=== PATIENT | female | born 1950 | race Caucasian/White ===

== ENCOUNTER 2017-11-04 09:41 | Inpatient (IN) | payer MEDICARE, BC ==
--- NOTE | 2017-11-04 09:56 | EDM.PDOC ---
ED HPI GENERAL MEDICAL PROBLEM - General Chief Complaint: Headache Stated Complaint: [facility] Time Seen by Provider: 11/04/17 09:53 Source of Information: Reports: Patient, EMS History Limitations: Reports: No Limitations - History of Present Illness INITIAL COMMENTS - FREE TEXT/NARRATIVE: 67-year-old female presents to the ED per ambulance from [place], [place]. She presented as a stroke alert. Apparently yesterday morning somewhere between 30/ she developed sudden troubles expressing herself. She been complaining of a headache most of the morning. Her was able to provide some history about 20 minutes after the patient arrived in the ED. Initially the patient seemed to be extremely hard of hearing or having difficulty understanding speech. Her speech initially sounded fairly close to normal but over time came out garbled and obvious expressive aphasia was evident. There was no other signs of a neurological deficit. Cranial nerves II-12 are intact. Tongue is mildly dry. The sinus. Blood pressure was stable. She has no previous history of CVA. Her informed us that the patient has not been taking any of her prescribed medications for over a year which includes her thyroid replacement hormone. She has a history of major depression and he has not been able to get her to go to the doctor. She does complain of only a headache today. Denies any nausea or vomiting. Is unclear when she ate or drank last. By history she does not have an alcohol or drug problem. Onset: Sudden Onset Date: 11/03/17 Onset Time: 11:45 Duration: Hour(s): ( states that he witnessed a change in her speech pattern suddenly about 1145 hrs. yesterday morning.) Location: Reports: Other (Dysarthric garbled speech or expressive aphasia.) Severity: Moderate (Apparently speech was very hard to understand initially.) Improves with: Reports: Other (Speech is somewhat better today.) Worsens with: Reports: None Context: Denies: Activity, Exercise, Lifting, Sick Contact, Trauma Associated Symptoms: Reports: Headaches, Malaise, Weakness. Denies: No Other Symptoms, Confusion, Chest Pain, Cough, cough w sputum, Diaphoresis, Fever/ Chills, Loss of Appetite, Nausea/Vomiting, Rash, Seizure, Shortness of Breath, Syncope Treatments MOTION PICTURE COMMENTATOR: Reports: Other (see below) (None.) Headache Pain Score (Numeric/FACES): 7 - Related Data Allergies Allergy/AdvReac Type Severity Reaction Status Date / Time Sulfa (Sulfonamide Allergy Severe Hives Verified 11/04/17 10:10 Antibiotics) Past Medical History Respiratory History: Reports: Asthma, COPD Psychiatric History: Reports: Depression, Other (See Below) (Chronic insomnia) Endocrine/Metabolic History: Reports: Hypothyroidism (Apparently has been off her medication for over a year.) Social & Family History - Tobacco Use Smoking Status *Q: Current Some Day Smoker Years of Tobacco use: 20 Used Tobacco, but Quit: No Second Hand Smoke Exposure: No - Alcohol Use Days Per Week of Alcohol Use: 0 - Recreational Drug Use Recreational Drug Use: No ED ROS GENERAL - Review of Systems Review Of Systems: See Below Constitutional: Reports: Malaise, Weakness, Fatigue, Decreased Appetite, Weight Loss. Denies: Fever, Chills HEENT: Reports: No Symptoms Respiratory: Reports: Shortness of Breath, Cough. Denies: Wheezing, Pleuritic Chest Pain (Only on exertion), Sputum, Hemoptysis (Smoker's cough) Cardiovascular: Reports: Dyspnea on Exertion (Chronically). Denies: Chest Pain , Blood Pressure Problem, Claudication, Edema, Lightheadedness, Orthopnea Endocrine: Reports: Fatigue GI/Abdominal: Reports: No Symptoms : Reports: No Symptoms Musculoskeletal: Reports: Back Pain (Chronic is to be on medicine for this but does not take pain medicine anymore.) Skin: Reports: Dryness Neurological: Reports: Confusion, Trouble Speaking (Difficulty speaking developed yesterday by 1145 hrs. in the morning with dysarthria and expressive aphasia.), Change in Speech. Denies: Dizziness, Headache, Numbness, Paresthesia , Pre-Existing Deficit, Seizure, Syncope, Tingling, Tremors, Difficulty Walking , Weakness Psychiatric: Reports: Depression Hematologic/Lymphatic: Reports: No Symptoms Immunologic: Reports: No Symptoms - Physical Exam Exam: See Below Exam Limited By: Physical Impairment (She seemed to be extremely hard of hearing and therefore examination was very limited in terms of getting a response even with a very loud voice.) General Appearance: Alert, WD/WN, No Apparent Distress, Other (Her only complaint was that she has a headache.) Eye Exam: Bilateral Eye: Normal Inspection, PERRL Ears: Normal TMs, Other (Mild cerumen in both ear canals) Throat/Mouth: Other Head Exam: Atraumatic, Normocephalic (Tongue is mildly dry and coated). No: Scalp Lacerations, Scalp Swelling, Scalp Ecchymosis, Scalp Tenderness, Facial Abrasions, Facial Lacerations Neck: Normal Inspection, Supple, Non-Tender, Full Range of Motion. No: Carotid Bruit, Lymphadenopathy (L), Lymphadenopathy (R) Respiratory/Chest: Decreased Breath Sounds. No: Respiratory Distress, Rhonchi ( Breath sounds are slightly diminished to the lower 20% of posterior lung prakash. ), Wheezing Cardiovascular: Normal Peripheral Pulses, Regular Rate, Rhythm, No Edema, No Gallop, No Murmur, No Rub GI/Abdominal: Normal Bowel Sounds, Soft, Non-Tender, No Organomegaly, Other ( Mildly palpable right hemicolon.) Neuro Exam (Abbreviated): Alert, Oriented, CN II-XII Intact, Normal Cognition, Normal Gait, Normal Reflexes, Slow to Respond, Other (Expressive aphasia.) DTR: 1+: Bicep (R), Bicep (L), 2+: Patella (R), Patella (L) Extremities: Normal Inspection, Normal Range of Motion, Non-Tender, No Pedal Edema Psychiatric: Flat Affect Skin Exam: Warm, Dry, Intact, Normal Color, No Rash Course - Vital Signs Last Recorded V/S: Last Vital Signs Temp 37.1 C 11/04/17 09:52 Pulse 85 11/04/17 09:52 Resp 16 11/04/17 09:52 BP 127/83 11/04/17 09:52 Pulse Ox 98 11/04/17 09:52 - Orders/Labs/Meds Orders: Active Orders 24 hr Category Date Time Status EKG Documentation Completion [RC] STAT Care 11/04/17 10:38 Active Brain wo Cont [MR] Stat Exams 11/04/17 10:12 Ordered Chest 1V Frontal [CR] Stat Exams 11/04/17 10:38 Taken Dextrose 5%-0.9% NaCl [Dextrose 5%-Normal Saline] 1,000 Med 11/04/17 10:15 Active ml IV ASDIRECTED Medication Orders Dextrose/Sodium Chloride (Dextrose 5%-Normal Saline) 1,000 mls @ 125 mls/hr IV ASDIRECTED DORINDA Last Admin: 11/04/17 10:43 Dose: 125 mls/hr Labs: Laboratory Tests 11/04/17 11/04/17 11/04/17 Range/Units 10:25 10:25 10:25 WBC 9.85 (3.98-10.04) K/mm3 RBC 4.57 (3.98-5.22) M/mm3 Hgb 14.5 (11.2-15.7) gm/L Hct 43.3 (34.1-44.9) % MCV 94.7 (79.4-94.8) fl MCH 31.7 (25.6-32.2) pg MCHC 33.5 (32.2-35.5) g/dl RDW Std Deviation 48.9 H (36.4-46.3) fL Plt Count 248 (182-369) K/mm3 MPV 9.2 L (9.4-12.3) fl Neutrophils % (Manual) 73 H (40-60) % Band Neutrophils % 1 (0-10) % Lymphocytes % (Manual) 24 (20-40) % Atypical Lymphs % 0 % Monocytes % (Manual) 1 L (2-10) % Eosinophils % (Manual) 1 (0.7-5.8) % Basophils % (Manual) 0 L (0.1-1.2) Platelet Estimate Adequate RBC Morph Comment Normal ESR 16 (0-20) mm/hr PT (8.0-13.0) SECONDS INR APTT (22-36) SECONDS Sodium 141 (136-145) mEq/L Potassium 4.1 (3.5-5.1) mEq/L Chloride 106 (98-107) mEq/L Carbon Dioxide 22 (21-32) mEq/L Anion Gap 17.1 H (5-15) BUN 21 H (7-18) mg/dL Creatinine 0.7 (0.55-1.02) mg/dL Est Cr Clr Drug Dosing TNP Estimated GFR (MDRD) > 60 (>60) mL/min BUN/Creatinine Ratio 30.0 H (14-18) Glucose 105 (80-115) mg/dL Calcium 9.5 (8.5-10.1) mg/dL Total Bilirubin 0.3 (0.2-1.0) mg/dL AST 24 (15-37) U/L ALT 42 (14-59) U/L Alkaline Phosphatase 75 (46-116) U/L Creatine Kinase (26-192) U/L C-Reactive Protein < 0.2 (<1.0) mg/dL Total Protein 7.2 (6.4-8.2) g/dl Albumin 3.9 (3.4-5.0) g/dl Globulin 3.3 gm/dL Albumin/Globulin Ratio 1.2 (1-2) TSH 3rd Generation (0.358-3.74) uIU/mL 11/04/17 11/04/17 Range/Units 10:25 10:25 WBC (3.98-10.04) K/mm3 RBC (3.98-5.22) M/mm3 Hgb (11.2-15.7) gm/L Hct (34.1-44.9) % MCV (79.4-94.8) fl MCH (25.6-32.2) pg MCHC (32.2-35.5) g/dl RDW Std Deviation (36.4-46.3) fL Plt Count (182-369) K/mm3 MPV (9.4-12.3) fl Neutrophils % (Manual) (40-60) % Band Neutrophils % (0-10) % Lymphocytes % (Manual) (20-40) % Atypical Lymphs % % Monocytes % (Manual) (2-10) % Eosinophils % (Manual) (0.7-5.8) % Basophils % (Manual) (0.1-1.2) Platelet Estimate RBC Morph Comment ESR (0-20) mm/hr PT 10.6 (8.0-13.0) SECONDS INR 0.97 APTT 28 (22-36) SECONDS Sodium (136-145) mEq/L Potassium (3.5-5.1) mEq/L Chloride (98-107) mEq/L Carbon Dioxide (21-32) mEq/L Anion Gap (5-15) BUN (7-18) mg/dL Creatinine (0.55-1.02) mg/dL Est Cr Clr Drug Dosing Estimated GFR (MDRD) (>60) mL/min BUN/Creatinine Ratio (14-18) Glucose (80-115) mg/dL Calcium (8.5-10.1) mg/dL Total Bilirubin (0.2-1.0) mg/dL AST (15-37) U/L ALT (14-59) U/L Alkaline Phosphatase (46-116) U/L Creatine Kinase 50 (26-192) U/L C-Reactive Protein (<1.0) mg/dL Total Protein (6.4-8.2) g/dl Albumin (3.4-5.0) g/dl Globulin gm/dL Albumin/Globulin Ratio (1-2) TSH 3rd Generation 10.843 H (0.358-3.74) uIU/mL Meds: Medications Generic Name Dose Route Start Last Admin Trade Name Freq PRN Reason Stop Dose Admin Dextrose/Sodium Chloride 1,000 mls @ 125 mls/hr 11/04/17 10:15 11/04/17 10:43 Dextrose 5%-Normal Saline IV 125 mls/hr ASDIRECTED DORINDA Administration Discontinued Medications Generic Name Dose Route Start Last Admin Trade Name Freq PRN Reason Stop Dose Admin Aspirin 324 mg 11/04/17 10:14 11/04/17 10:47 Aspirin PO 11/04/17 10:15 324 mg ONETIME ONE Administration Hydromorphone HCl 0.5 mg 11/04/17 10:15 11/04/17 10:45 Dilaudid IVPUSH 11/04/17 10:16 0.5 mg ONETIME ONE Administration Ondansetron HCl 4 mg 11/04/17 10:16 11/04/17 10:43 Zofran IVPUSH 11/04/17 10:17 4 mg ONETIME ONE Administration - Radiology Interpretation Free Text/Narrative:: 67-year-old female presents to the ED per ambulance from [facility]. Her who came along later indicated that he identified a speech change about 1145 hrs. yesterday morning. Her speech became slurred and hard to understand. She is then seem to have trouble getting her point across i.e. expressive aphasia. Also initially felt that she is perhaps diaphoretic and febrile. She was holding her head in complaining of a headache. Is unclear whether she ate or drank much yesterday. She has not vomited. He was unable to persuade her to go to the doctor yesterday as she's been avoiding medical care for well over a year. Apparently she has not taken any of her previously prescribed medications for over a year which includes thyroid replacement therapy. There is no history of previous CVA. She could walk and without any active ataxia. She had difficulty understanding any concept of finger to nose or heel to fernandes. She did exhibit an expressive aphasia and unable to name objects. CT of the head was done and did not reveal any signs of intracranial bleeding or mass effect. However there is an area in the left parietal and occipital cortex of diminished blood flow. This suggests a recent infarct. There is also an old infarct noted within the anterior left frontal region. There are diminished density noted within portions of the periventricular white matter compatible with small vessel ischemic demyelination changes in the basal ganglia. Note there is atherosclerotic desiccation within the carotid siphon and within the vertebral vessels. Plan will be due try and get an MRI done later today to see the extent of her infarct. Given 324 mg aspirin now. Labs ordered to include a TSH. ECG and chest x-ray will be done due to chronic cigarette smoking. - Re-Assessments/Exams Free Text/Narrative Re-Assessment/Exam: 11/04/17 11:37 White count is 9.85 with 73% neutrophils 1% bands. Hemoglobin is 14.5 with hematocrit of 43.3. Blood count is 240,000. Sedimentation rate is 16. PT is 10.6 with an INR of 0.97. PTT is 28. Sodium is 141 potassium is 4.1. Chloride is 106 bicarbonate is 22. Anion gap is mildly elevated at 17.1. BUNs 21. Creatinine is 0.7. Glucose is 105. Chemistry is otherwise normal other than a TSH of 10.843 compatible with untreated hypothyroidism( noncompliance with medication.). Symptoms remain unchanged. Patient will tentatively be booked for MRI at noon today. Tentatively will be admitted to the hospital for further tests such as echocardiogram and ultrasound of carotids. Of note she continues to smoke a pack of cigarettes per day and may need treatment for nicotine addiction. BP at the time of discharge is 122/64 with a heart rate of 69 and sinus. Spoke with television cameraman hospitalist Dr. Bowling.. The patient will be admitted to the med surgery floor on telemetry. Departure - Departure Time of Disposition: 11:42 Disposition: Admitted As Inpatient 66 Condition: Fair Clinical Impression: Cerebrovascular accident (CVA) Qualifiers: CVA mechanism: unspecified Qualified Code(s): I63.9 - Cerebral infarction, unspecified - Discharge Information Forms: ED Department Discharge - My Orders Last 24 Hours: My Active Orders 11/04/17 10:12 Brain wo Cont [MR] Stat 11/04/17 10:15 Dextrose 5%-0.9% NaCl [Dextrose 5%-Normal Saline] 1,000 ml IV ASDIRECTED 11/04/17 10:38 EKG Documentation Completion [RC] STAT Chest 1V Frontal [CR] Stat - Assessment/Plan Last 24 Hours: My Active Orders 11/04/17 10:12 Brain wo Cont [MR] Stat 11/04/17 10:15 Dextrose 5%-0.9% NaCl [Dextrose 5%-Normal Saline] 1,000 ml IV ASDIRECTED 11/04/17 10:38 EKG Documentation Completion [RC] STAT Chest 1V Frontal [CR] Stat
[2017-11-04] MEDS ORDERED: Aspirin 81 MG Tab.Chew PO ONE (10:14)
[2017-11-04] MEDS ORDERED: HYDROmorphone 0.5 MG/0.5 ML Syringe IVPUSH ONE (10:15)
[2017-11-04] MEDS ORDERED: Dextrose 5%-0.9% NaCl 1,000 ML IV SCH (10:15)
[2017-11-04] MEDS ORDERED: Ondansetron 4 MG/2 ML SDV IVPUSH ONE (10:16)
--- NOTE | 2017-11-04 10:22 | CT ---
Head CT Technique: Multiple axial sections through the brain were obtained. Intravenous contrast was not utilized. Comparison: No previous intracranial imaging is available. Findings: Old infarct is noted within the posterior right frontal region. Old infarct also noted within the anterior left frontal region. Diminished density noted within the left posterior parietal region on the left side compatible with fairly recent infarct. Diminished density noted within portions of the periventricular white matter compatible with small vessel ischemic demyelination change. No evidence of intracranial hemorrhage. No midline shift or mass effect is appreciated. Atherosclerotic calcification is seen within the carotid siphon and within the vertebral vessels. Bone window settings were reviewed which show mild areas of mucosal thickening within the ethmoid and right side of the sphenoid sinus which likely represents mild chronic sinusitis. No acute calvarial abnormality is seen. Impression: 1. Several old infarcts as described above. 2. Fairly recent infarct is noted within the posterior left parietal region. 3. Other senescent change as described above. No intracranial hemorrhage is seen. Diagnostic code #5
[2017-11-04] MEDS ORDERED: Midazolam 1 MG/ML 2 ML SDV IVPUSH ONE (11:48)
--- NOTE | 2017-11-04 12:24 | CR ---
Chest: Frontal view of the chest is obtained utilizing portable technique. Comparison: Previous chest x-ray of 09/17/15. Heart size is normal. Tortuous thoracic aorta is seen. Lungs are clear. Right shoulder prosthesis is seen. Impression: 1. Nothing acute is seen on portable chest x-ray. Diagnostic code #2
[2017-11-04] MEDS ORDERED: Polyethylene Glycol 3350 Powder 17 GM Packet PO PRN (12:32)
[2017-11-04] MEDS ORDERED: Bisacodyl 5 MG Tab PO PRN (12:32)
[2017-11-04] MEDS ORDERED: Acetaminophen 325 MG Tab PO PRN (12:32)
[2017-11-04] MEDS ORDERED: Promethazine 12.5 MG in Sodium Chloride 0.9% 50 ML IV PRN (12:32)
[2017-11-04] MEDS ORDERED: Docusate Sodium 100 MG Cap PO PRN (12:32)
[2017-11-04] MEDS ORDERED: LORazepam 2 MG/ML SDV IV PRN (12:32)
[2017-11-04] MEDS ORDERED: HYDROmorphone 0.5 MG/0.5 ML Syringe IVPUSH PRN (12:32)
[2017-11-04] MEDS ORDERED: Acetaminophen/HYDROcodone 325-5 MG Tab PO PRN (12:32)
[2017-11-04] MEDS ORDERED: Albuterol/Ipratropium 3.0-0.5 MG/3 ML Neb Soln NEB PRN (12:32)
[2017-11-04] MEDS ORDERED: Ondansetron 4 MG/2 ML SDV IV PRN (12:32)
[2017-11-04] MEDS ORDERED: Temazepam 7.5 MG Cap PO PRN (12:32)
[2017-11-04] MEDS ORDERED: Triamcinolone Acetonide 0.1% Crm 15 GM Tube TOP PRN (12:38)
[2017-11-04] MEDS ORDERED: Metoprolol Tartrate 5 MG/5 ML SDV IVPUSH PRN (12:38)
[2017-11-04] MEDS ORDERED: hydrALAZINE 20 MG/ML SDV IVPUSH PRN (12:38)
--- NOTE | 2017-11-04 13:36 | MR ---
MRI brain Technique: T1 sagittal; T2, T2 FLAIR, T1 and T2 gradient echo axial images were obtained; diffusion axial images were also obtained. T2 gradient echo and T1 FLAIR coronal images were also obtained. Findings: Acute diffusion abnormality is identified within the left temporoparietal region. This shows increased signal on the FLAIR sequence and is compatible with fairly acute but irreversible infarct. There is an additional small area of abnormal diffusion within the medial left occipital lobe also showing increased signal on the FLAIR sequence compatible with fairly acute but irreversible infarct. Old infarct is seen within the left frontal regions on both sides. Scattered areas of increased signal within the periventricular and subcortical white matter are compatible with small vessel ischemic demyelination change. On the gradient echo sequences there are multiple small low-density areas within the infarct which are felt compatible with microscopic areas of hemorrhage. Ventricles along with basal cisterns and sulci over the convexities are mildly prominent. Impression: 1. Findings compatible with fairly acute but irreversible infarcts within the left temporoparietal region and within the medial left occipital lobe. Gradient echo sequence shows small low signal findings within the temporal parietal infarct compatible with microscopic hemorrhages. 2. Small vessel ischemic demyelination change noted. 3. Old infarcts within both frontal lobes are seen. Diagnostic code #3
--- NOTE | 2017-11-04 14:03 | US ---
Carotid ultrasound: Duplex and color flow imaging was obtained of the carotid arteries. Comparison: No previous carotid imaging. Findings: Moderate amount of plaque identified within the carotid bulb and origin of the internal and external carotid arteries on both sides. Velocity measurements Right side: CCA has a peak systolic velocity of 0.68 m/s. ICA has a peak systolic velocity of 0.61 m/s and peak end-diastolic velocity of 0.22 m/s. ECA has a peak systolic velocity of 0.42 m/s. Vertebral artery has a peak systolic velocity of 0.42 m/s. ICA/CCA ratio 0.9. Left side: CCA has a peak systolic velocity of 0.80 m/s. ICA has a peak systolic velocity of 0.67 m/s and peak end-diastolic velocity of 0.26 m/s. ECA has a peak systolic velocity of 0.42 m/s. Vertebral artery has a peak systolic velocity of 0.41 m/s. ICA/CCA ratio 0.8. Impression: 1. Moderate amount of plaque as noted above. 2. Velocity measurements within both internal carotid arteries correspond to stenosis in the range of 1-49%. Diagnostic code #3
[2017-11-04] MEDS: Sucralfate 1 GM Tab PO SCH ×3 (14:19→21:05)
[2017-11-04] MEDS: Acetaminophen/HYDROcodone 325-5 MG Tab PO SCH ×2 (14:19→21:09)
[2017-11-04] MEDS: Nicotine 21 MG/24 Hr Patch TRDERM SCH (16:05)
[2017-11-04] MEDS: Sodium Chloride 0.9% 1,000 ML IV SCH (18:50)
--- NOTE | 2017-11-04 20:03 | PCM.HP ---
H&P History of Present Illness - General Date of Service: 11/04/17 Admit Problem/Dx: Admission Diagnosis/Problem Admission Diagnosis/Problem CVA, Cerebrovascular accident Source of Information: Patient, Old Records, Provider, RN, Significant Other History Limitations: Reports: Physical Impairment (expressive aphasia and very hard of hearing ) - History of Present Illness Initial Comments - Free Text/Narative: Chelsea Summers is a 67 yo female reason [facility] ED today from [place] via ambulance. Stroke alert was called in the ED. It is reported that yesterday morning between 11:30 and 1145 she developed sudden troubles speaking and a headache. Initially she seemed very hard of hearing or having difficulty understanding speech. Her speech was initially nearly normal, however over time he became more garbled and obvious expressive aphasia was noted. No signs of neurologic deficit. Cranial nerves II through XII were intact. Tongue was mildly dry. Blood pressure was stable. No previous history of CVA. Her did realize that she had not been taking any of her medications for over a year which included her thyroid replacement hormone. She is a history of major depression and her has not been able to get her to go the doctor. She has complained of only a headache in the ED. Denies nausea or vomiting. Unsure when she last ate or had anything to drink. She reportedly does not have a drug or alcohol problem. Her speech has improved somewhat today. In the ER temp was 37.1 Celsius. Pulse 85. Respirations 16. BP 127/83 pulse ox 98%. Labs are obtained: The CBC is normal at 9.5. Hemoglobin normal at 14.5. Hematocrit 43.3. She is normocytic. Platelet count is good at 240,000. Neutrophils are elevated at 73%. There is 1% band neutrophils noted. ESR 16. PT is 10.6. INR 0.97. APTT 28. Sodium was good at 141. Potassium 4.1. Chloride 106. Carbon dioxide 22. Anion gap was slightly high at 17.1. BUN is elevated at 21. Creatinine is 0.7. EGFR is greater than 60. Glucose is 105. Calcium 9.5. Total bilirubin 0.3. Liver enzymes looked good with AST at 24, ALT at 42, alkaline phosphatase at 75. Creatinine kinase is 50. CRP is less than 0.2. Total protein is 7.2. Albumin is 3.9. TSH is very high at 10.843. She started on D5 normal saline, given aspirin 324 mg, 4 mg of Zofran, and 0.5 mg of Dilaudid for pain. He is not having any noted weakness or difficulty walking, however she does have difficulty speaking and appears to have cognition difficulties. CT scan of the head was obtained and did not reveal any signs of intracranial bleeding or mass effect, however, there is an area in the left parietal occipital cortex of diminished blood flow suggesting a recent infarct. There is also old infarct noted within the anterior left frontal region. There are diminished density noted within portions of periventricular white matter compatible with small vessel ischemic demyelination changes in the basal ganglia. An MRI will be attempted on the floor. She carries a history of asthma, COPD, depression, chronic insomnia, hypothyroidism. She is a current daily smoker. She is subsequently admitted to the medical floor. She is a full code. She has not seen the doctor in some time, however her states her PCP is Lisette Reid in [place]. Symptom Onset Date: 11/03/17 Symptom Onset Time: 11:45 Location: Reports: Other (garbled speech and expressive aphasia) Severity: Moderate Worsens with: Reports: None Associated Symptoms: Reports: Headaches, Malaise, Weakness Headache Pain Score (Numeric/FACES): 0 - Related Data Allergies/Adverse Reactions: Allergies Allergy/AdvReac Type Severity Reaction Status Date / Time Sulfa (Sulfonamide Allergy Severe Hives Verified 11/04/17 10:10 Antibiotics) Home Medications: Home Meds Albuterol Sulfate [Proair Hfa] 1 - 2 puff INH Q4H PRN 11/04/17 [History] Aspirin 81 mg PO DAILY 11/04/17 [History] Calcium Carbonate [Calcium] 500 mg PO DAILY 11/04/17 [History] Citalopram Hydrobromide [Celexa] 60 mg PO DAILY 11/04/17 [History] Ergocalciferol (Vitamin D2) [Vitamin D2] 2,000 unit PO DAILY 11/04/17 [History] Fluticasone Propionate [Flovent HFA 110 MCG] 1 puff INH BID 11/04/17 [History] Hydrocodone/Acetaminophen [Hydrocodon-Acetaminoph 7.5-325] 1 tab PO TID [History] LORazepam 1 mg PO BID 11/04/17 [History] Lactobacillus Rhamnosus GG [Culturelle] 1 cap PO DAILY 11/04/17 [History] Leflunomide 20 mg PO DAILY 11/04/17 [History] Levothyroxine Sodium [Synthroid] 125 mcg PO DAILY 11/04/17 [History] Loratadine/Pseudoephedrine [Loratadine-D 12HR] 1 tab PO BID 11/04/17 [History] Nabumetone 1,000 mg PO DAILY 11/04/17 [History] Webster-3/DHA/Epa/Fish Oil [Webster-3 Fish Oil 1,200 MG Sfgl] 1,200 mg PO DAILY [History] Omeprazole 40 mg PO BID 11/04/17 [History] Potassium Gluconate 595 mg PO DAILY 11/04/17 [History] Sucralfate 1 gm PO QID 11/04/17 [History] Tiotropium [Spiriva HandiHaler] 18 mcg INH DAILY 11/04/17 [History] Triamcinolone Acetonide [Triamcinolone Acetonide 0.1% Crm] 1 appful TOP DAILY PRN 11/04/17 [History] Ubidecarenone [Co Q-10] 100 mg PO DAILY 11/04/17 [History] atorvaSTATin [Lipitor] 10 mg PO DAILY 11/04/17 [History] traZODone HCl [Trazodone HCl] 1 - 2 tab PO BEDTIME 11/04/17 [History] Past Medical History HEENT History: Reports: Allergic Rhinitis, Hard of Hearing, Impaired Vision, Sinusitis Other HEENT History: wears reading glasses Cardiovascular History: Reports: Aneurysm, High Cholesterol, Hypertension Respiratory History: Reports: Asthma, COPD Gastrointestinal History: Reports: Helicobacter Pylori, PUD [employer]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: Musculoskeletal History: Reports: Osteoarthritis, Osteoporosis Neurological History: Reports: CVA Psychiatric History: Reports: Depression, Other (See Below) Endocrine/Metabolic History: Reports: Hypothyroidism Hematologic History: Reports: Anemia - Infectious Disease History Infectious Disease History: Reports: Shingles - Past Surgical History HEENT Surgical History: Reports: Cataract Surgery, Naso-Sinus Surgery Respiratory Surgical History: Reports: None GI Surgical History: Reports: Bariatric Procedure, Cholecystectomy Female Surgical History: Reports: Breast Implant, Breast Reconstruction, Breast Reduction, Hysterectomy, Tubal Ligation Neurological Surgical History: Reports: None Musculoskeletal Surgical History: Reports: Shoulder Surgery Social & Family History - Family History Family Medical History: Noncontributory - Tobacco Use Smoking Status *Q: Light Tobacco Smoker Years of Tobacco use: 50 Packs/Tins Daily: 0.5 Used Tobacco, but Quit: No Tobacco Use Comment: smokes carton of cigarrettes in 6 weeks Second Hand Smoke Exposure: No - Caffeine Use Caffeine Use: Reports: None Caffeine Use Comment: 1 cup/day - Alcohol Use Days Per Week of Alcohol Use: 0 - Recreational Drug Use Recreational Drug Use: No H&P Review of Systems - Review of Systems: Review Of Systems: Unable To Obtain Free Text/Narrative: review of systems is difficult to obtain as patient appears to have some cognition deficits. Patient just seems to respond to most questions "I am fine. " She denies any chest pain or shortness of breath. No current headache, dizziness, or blurred vision, per her responses. Her reports that she has been depressed since a recent and doesn't leave the house very much. he reports she mostly goes between her bedroom, kitchen, and front porch. He was reportedly unaware she was not taking any of her medications as prescribed. Reports no previous strokelike symptoms. He denies any vomiting. He reports she normally gets around the house very good. Exam - Exam Exam: See Below - Vital Signs Vital Signs: Last Vital Signs Temp 98.1 F 11/04/17 19:24 Pulse 57 L 11/04/17 19:24 Resp 15 11/04/17 19:24 BP 97/62 11/04/17 19:24 Pulse Ox 97 11/04/17 19:24 Weight: 130 lb - Exam General: Alert, Cooperative. No: Mild Distress HEENT: PERRLA, Hearing Intact, Mucosa Moist & [place], Nares Patent, Normal Nasal Septum, Posterior Pharynx Clear, Conjunctiva Clear, EOMI, EACs Clear, TMs Clear Neck: Supple, Trachea Midline, Full Range of Motion. No: JVD, Thyromegaly Lungs: Decreased Breath Sounds (llower lung prakash), Rhonchi, Wheezing Cardiovascular: Regular Rate, Regular Rhythm GI/Abdominal Exam: Normal Bowel Sounds, Soft, Non-Tender, No Organomegaly, No Distention, No Abnormal Bruit, No Mass, Pelvis Stable (Female) Exam: Deferred Rectal (Female) Exam: Deferred Back Exam: Normal Inspection, Full Range of Motion Extremities: Normal Inspection, Normal Range of Motion, Non-Tender, No Pedal Edema, Normal Capillary Refill Peripheral Pulses: 2+: Radial (L), Radial (R), Posterior Tibial (L), Posterior Tibial (R), Dorsalis Pedis (L), Dorsalis Pedis (R) Neurological: Cranial Nerves Intact, Strength Equal Bilateral, Normal Gait, Sensation Intact. No: Normal Speech Neuro Extensive - Mental Status: Alert, Slow Response to Commands, Other ( difficult to examine due to expressive aphasia). No: Normal Mood/Affect, Normal Cognition, Memory Intact Neuro Extensive - Motor, Sensory, Reflexes: CN II-XII Intact, Expressive Aphasia. No: Abnormal Gait, Tongue Deviation (L), Tongue Deviation (R), Facial Palsy (R) Psychiatric: Alert, Depressed - Patient Data Result Diagrams: 11/04/17 10:25 11/04/17 10:25 *Q Meaningful Use (ADM) - VTE *Q VTE Criteria *Q: - Stroke *Q Stroke Criteria *Q: - AMI *Q AMI Criteria *Q: - Problem List (1) Cerebrovascular accident (CVA) SNOMED Code(s): 318528567 ICD Code: I63.9 - CEREBRAL INFARCTION, UNSPECIFIED Status: Acute Priority : High Current Visit: Yes Qualifiers: CVA mechanism: unspecified Qualified Code(s): I63.9 - Cerebral infarction, unspecified (2) Asthma SNOMED Code(s): 679643305 ICD Code: J45.909 - UNSPECIFIED ASTHMA, UNCOMPLICATED Status: Chronic Priority: Low Current Visit: No Qualifiers: Asthma severity: unspecified severity Asthma persistence: unspecified Asthma complication type: unspecified Qualified Code(s): J45.909 - Unspecified asthma, uncomplicated (3) COPD (chronic obstructive pulmonary disease) SNOMED Code(s): 23125952 ICD Code: J44.9 - CHRONIC OBSTRUCTIVE PULMONARY DISEASE, UNSPECIFIED Status : Chronic Priority: Low Current Visit: No Qualifiers: COPD type: unspecified COPD Qualified Code(s): J44.9 - Chronic obstructive pulmonary disease, unspecified (4) Depression SNOMED Code(s): 34596010 ICD Code: F32.9 - MAJOR DEPRESSIVE DISORDER, SINGLE EPISODE, UNSPECIFIED Status: Chronic Priority: Medium Current Visit: Yes Qualifiers: Depression Type: other depression Qualified Code(s): F32.89 - Other specified depressive episodes (5) Insomnia SNOMED Code(s): 281510023 ICD Code: G47.00 - INSOMNIA, UNSPECIFIED Status: Chronic Priority: Low Current Visit: No Qualifiers: Insomnia type: unspecified Qualified Code(s): G47.00 - Insomnia, unspecified (6) Hypothyroidism SNOMED Code(s): 69104495 ICD Code: E03.9 - HYPOTHYROIDISM, UNSPECIFIED Status: Chronic Priority: Medium Current Visit: Yes Qualifiers: Hypothyroidism type: unspecified Qualified Code(s): E03.9 - Hypothyroidism , unspecified (7) Medical non-compliance SNOMED Code(s): 452911327 ICD Code: Z91.19 - PATIENT'S NONCOMPLIANCE W OTH MEDICAL TREATMENT AND REGIMEN Status: Acute Priority: High Current Visit: Yes Problem List Initiated/Reviewed/Updated: Yes Orders Last 24hrs: Active Orders 24 hr Category Date Time Status Antiembolic Devices [RC] BID Care 11/04/17 12:34 Active Height and Weight [RC] 04 Care 11/04/17 12:32 Active Intake and Output [RC] 04,16 Care 11/04/17 12:33 Active VTE/DVT Education [RC] DAILY Care 11/04/17 12:32 Active Vital Signs [RC] Q4HR Care 11/04/17 12:32 Active OT Evaluation and Treatment [CONS] Routine Cons 11/04/17 12:36 Active PT Evaluation and Treatment [CONS] Routine Cons 11/04/17 12:36 Active BLASTING MINER Evaluation and Treatment [CONS] Routine Cons 11/04/17 12:36 Active Heart Healthy Diet [DIET] Diet 11/04/17 Lunch Active BASIC METABOLIC PANEL,BMP [CHEM] AM Lab 11/05/17 05:11 Ordered BASIC METABOLIC PANEL,BMP [CHEM] AM Lab 11/06/17 05:11 Ordered BASIC METABOLIC PANEL,BMP [CHEM] AM Lab 11/07/17 05:11 Ordered BASIC METABOLIC PANEL,BMP [CHEM] AM Lab 11/08/17 05:11 Ordered CBC WITH AUTO DIFF [HEME] AM Lab 11/05/17 05:11 Ordered LIPID PANEL [CHEM] AM Lab 11/05/17 05:11 Ordered MAGNESIUM [CHEM] AM Lab 11/05/17 05:11 Ordered MAGNESIUM [CHEM] AM Lab 11/06/17 05:11 Ordered MAGNESIUM [CHEM] AM Lab 11/07/17 05:11 Ordered MAGNESIUM [CHEM] AM Lab 11/08/17 05:11 Ordered Acetaminophen [Tylenol] Med 11/04/17 12:32 Active 650 mg PO Q4H PRN Acetaminophen/HYDROcodone [[place] 325-5 MG] Med 11/04/17 12:32 Active 1 tab PO Q4H PRN Acetaminophen/HYDROcodone [[place] 325-5 MG] Med 11/04/17 15:00 Active 1.5 tab PO TID Albuterol/Ipratropium [DuoNeb 3.0-0.5 MG/3 ML] Med 11/04/17 12:32 Active 3 ml NEB Q4H PRN Aspirin Med 11/05/17 09:00 Active 162 mg PO DAILY Bisacodyl [Dulcolax] Med 11/04/17 12:32 Active 5 mg PO DAILY PRN Calcium Carbonate Med 11/05/17 09:00 Active 600 mg PO DAILY Citalopram [Celexa] Med 11/05/17 09:00 Active 60 mg PO DAILY Docusate Sodium [Colace] Med 11/04/17 12:32 Active 100 mg PO BID PRN Docusate Sodium/Sennosides [Senna Plus] Med 11/04/17 12:32 Active 1 tab PO BID PRN Fish Oil/Webster-3 Fatty Acids [Fish Oil] Med 11/05/17 09:00 Active 1 gm PO DAILY HYDROmorphone [Dilaudid] Med 11/04/17 12:32 Active 0.25 mg IVPUSH Q2H PRN LORazepam [Ativan] Med 11/04/17 12:32 Active 0.25 mg IV Q6H PRN LORazepam [Ativan] Med 11/04/17 21:00 Active 1 mg PO BID Levothyroxine Med 11/05/17 09:00 Active 125 mcg PO DAILY Loratadine [Claritin] Med 11/04/17 21:00 Active 10 mg PO BID Magnesium Rep Pharmacy to Dose [Pharmacy to Dose - Med 11/04/17 12:45 Active Magnesium Replacement] 1 dose .XX ASDIRECTED Metoprolol Tartrate [Lopressor] Med 11/04/17 12:38 Active 5 mg IVPUSH Q4H PRN Mometasone Furoate 100mcg [Asmanex HFA 100mcg] Med 11/04/17 21:00 Active 0 gm INH BID Nicotine [Habitrol] Med 11/04/17 15:30 Active 21 mg TRDERM DAILY Ondansetron [Zofran] Med 11/04/17 12:32 Active 4 mg IV Q4H PRN Pantoprazole [ProTONIX] Med 11/04/17 21:00 Active 40 mg PO BID Patient's Own Medication [Ptom] Med 11/05/17 09:00 Active 0 each PO DAILY Patient's Own Medication [Ptom] Med 11/05/17 09:00 Active 0 each PO DAILY Patient's Own Medication [Ptom] Med 11/05/17 09:00 Active 0 each PO DAILY Patient's Own Medication [Ptom] Med 11/05/17 09:00 Active 0 each PO DAILY Polyethylene Glycol 3350 [MiraLAX] Med 11/04/17 12:32 Active 17 gm PO DAILY PRN Potassium Rep Pharmacy to Dose [Pharmacy to Dose - Med 11/04/17 12:45 Active Potassium Replacement] 1 dose .XX ASDIRECTED Promethazine [Phenergan] 12.5 mg Med 11/04/17 12:32 Active Sodium Chloride 0.9% [Normal Saline] 50 ml IV Q6H Pseudoephedrine [Sudogest] Med 11/04/17 21:00 Active 120 mg PO BID Remove Patch Med 11/05/17 09:00 Active 0 ea TRDERM DAILY Saccharomyces Boulardii [Florastor] Med 11/05/17 09:00 Active 250 mg PO DAILY Simvastatin [Zocor] Med 11/05/17 09:00 Active 10 mg PO DAILY Sodium Chloride 0.9% [Normal Saline] 1,000 ml Med 11/04/17 12:45 Active IV ASDIRECTED Sucralfate [Carafate] Med 11/04/17 13:00 Active 1 gm PO QID Sulindac [Clinoril] Med 11/05/17 09:00 Active 150 mg PO BID Temazepam [Restoril] Med 11/04/17 12:32 Active 7.5 mg PO BEDTIME PRN Tiotropium [Spiriva HandiHaler] Med 11/05/17 09:00 Active 18 mcg INH DAILY Triamcinolone Acetonide [Triamcinolone Acetonide 0.1% Med 11/04/17 12:38 Active Crm] 0 gm TOP DAILY PRN hydrALAZINE [Apresoline] Med 11/04/17 12:38 Active 20 mg IVPUSH Q4H PRN traZODone Med 11/04/17 21:00 Active 150 - 300 mg PO BEDTIME Sequential Compression Device [OM.PC] Per Unit Routine Oth 11/04/17 12:33 Ordered Resuscitation Status Routine Resus Stat 11/04/17 12:32 Ordered Medication Orders Acetaminophen (Tylenol) 650 mg PO Q4H PRN PRN Reason: Pain (Mild 1-3)/fever Hydrocodone Bitart/Acetaminophen ([place] 325-5 Mg) 1 tab PO Q4H PRN PRN Reason: Pain (moderate 4-6) Hydrocodone Bitart/Acetaminophen ([place] 325-5 Mg) 1.5 tab PO TID [facility] Last Admin: 11/04/17 14:19 Dose: 1.5 tab Albuterol/Ipratropium (Duoneb 3.0-0.5 Mg/3 Ml) 3 ml NEB Q4H PRN PRN Reason: Shortness Of Breath/wheezing Aspirin (Aspirin) 162 mg PO DAILY [facility] Bisacodyl (Dulcolax) 5 mg PO DAILY PRN PRN Reason: Constipation Calcium Carbonate/Glycine (Calcium Carbonate) 600 mg PO DAILY [facility] Citalopram Hydrobromide (Celexa) 60 mg PO DAILY [facility] Docusate Sodium (Colace) 100 mg PO BID PRN PRN Reason: Constipation Fish Oil (Fish Oil) 1 gm PO DAILY [facility] Hydralazine HCl (Apresoline) 20 mg IVPUSH Q4H PRN PRN Reason: Hypertension Hydromorphone HCl (Dilaudid) 0.25 mg IVPUSH Q2H PRN PRN Reason: Pain (severe 7-10) Dextrose/Sodium Chloride (Dextrose 5%-Normal Saline) 1,000 mls @ 125 mls/hr IV ASDIRECTED [facility] Last Admin: 11/04/17 10:43 Dose: 125 mls/hr Promethazine HCl 12.5 mg/ (Sodium Chloride) 50.5 mls @ 100 mls/hr IV Q6H PRN PRN Reason: Nausea/Vomiting Sodium Chloride (Normal Saline) 1,000 mls @ 50 mls/hr IV ASDIRECTED [facility] Last Admin: 11/04/17 18:50 Dose: 50 mls/hr Levothyroxine Sodium (Levothyroxine) 125 mcg PO DAILY [facility] Loratadine (Claritin) 10 mg PO BID [facility] Lorazepam (Ativan) 0.25 mg IV Q6H PRN PRN Reason: Anxiety Lorazepam (Ativan) 1 mg PO BID [facility] Magnesium Sulfate (Pharmacy To Dose - Magnesium Replacement) 1 dose .XX ASDIRECTED [facility] Metoprolol Tartrate (Lopressor) 5 mg IVPUSH Q4H PRN PRN Reason: Tachycardia Miscellaneous Information (Remove Patch) 0 ea TRDERM DAILY [facility] Mometasone Furoate (Asmanex Hfa 100mcg) 0 gm INH BID [facility] Nicotine (Habitrol) 21 mg TRDERM DAILY [facility] Last Admin: 11/04/17 16:05 Dose: 21 mg Ondansetron HCl (Zofran) 4 mg IV Q4H PRN PRN Reason: Nausea/Vomiting Pantoprazole Sodium (Protonix) 40 mg PO BID [facility] Ergocalciferol ( Vitamin D2) [Vitamin D2] 2,000 Unit 0 each PO DAILY [facility] Leflunomide 20 Mg 0 each PO DAILY [facility] Potassium Gluconate (595 Mg) 0 each PO DAILY [facility] Ubidecarenone 100 Mg 0 each PO DAILY [facility] Polyethylene Glycol (Miralax) 17 gm PO DAILY PRN PRN Reason: Constipation Potassium Chloride (Pharmacy To Dose - Potassium Replacement) 1 dose .XX ASDIRECTED [facility] Pseudoephedrine HCl (Sudogest) 120 mg PO BID [facility] Saccharomyces Boulardii (Florastor) 250 mg PO DAILY [facility] Senna/Docusate Sodium (Senna Plus) 1 tab PO BID PRN PRN Reason: Constipation Simvastatin (Zocor) 10 mg PO DAILY [facility] Sucralfate (Carafate) 1 gm PO QID [facility] Last Admin: 11/04/17 16:05 Dose: 1 gm Admin: 11/04/17 14:19 Dose: 1 gm Sulindac (Clinoril) 150 mg PO BID [facility] Temazepam (Restoril) 7.5 mg PO BEDTIME PRN PRN Reason: Sleep Tiotropium [place] (Spiriva Handihaler) 18 mcg INH DAILY [facility] Trazodone HCl (Trazodone) 150 - 300 mg PO BEDTIME [facility] Triamcinolone Acetonide (Triamcinolone Acetonide 0.1% Crm) 0 gm TOP DAILY PRN PRN Reason: Itching Assessment/Plan Comment:: I/P: Acute: CVA -Last seen well yesterday around 1145 - noted difficulty communicating -Stopped taking all medicines about a year ago per -Risk factors: Smoker, hx/o hld, avoids medical provider -VSS -CT (11/04/17) notes area in left parietal and occipital cortex of diminished blood flow -Old infarct within left anterior frontal region -Diminished density wihtin periventricular white matter compatable with small vessel ischemic demyelenation changes -Atherosclerotic desiccation within carotid siphon and vertebral vessesl -324mg ASA given in ED - switch to 162mg daily -Carotid ultrasound (11/04/17) - moderate amount of plaque -Stenosis within 1-49% bilaterally -MRI (11/04/17) - Fairly acute but irreversible infarcts in left temporoparietal region in medial left occipital lobe -Low signal findings in temoporal parietal infarct compatable with microscopic hemorrhages -Small vessel ischemic demyelination changes noted -Old infarcts within both frontal lobes seen -Echo obtained - results pending -Lipid panel ordered -BID neuro checks -BLASTING MINER evaluation Hypothyroidism -TSH 10.843 -Free T4 0.87 -Resume home Synthroid -Will need f/u with PCP to re-check in 4-6 weeks Chronic: Asthma - home meds COPD - home meds Depression - consider zachary consult Insomnia tobacco use disorder - nicotine patch, pre parole counseling aide on smoking cessation Plan: Admit to medical floor on telemetry CM/SW for discharge planning PT/OT Other orders as indicated above Routine AM labs Home medications as ordered DVT/PE prophylaxis: SCDs Code status: Full code; PCP Lisette Reid in [place], although she has not seen her in some time.
[2017-11-04] MEDS ORDERED: traZODone 50 MG Tab PO SCH (21:00)
[2017-11-04] MEDS: Loratadine 10 MG Tab PO SCH (21:08)
[2017-11-04] MEDS: LORazepam 1 MG Tab PO SCH (21:08)
[2017-11-04] MEDS: Pantoprazole 40 MG Tab.CR PO SCH (21:10)
[2017-11-04] MEDS: Pseudoephedrine 30 MG Tab PO SCH (21:10)
[2017-11-04] MEDS: Mometasone Furoate HFA 100mcg/Puff 13 GM Inhaler INH SCH (21:20)
[2017-11-05] MEDS: Tiotropium Inhaler 18 MCG Inhalation Powder Cap Kit of 5 INH SCH (08:32)
[2017-11-05] MEDS: Mometasone Furoate HFA 100mcg/Puff 13 GM Inhaler INH SCH ×2 (08:32→21:01)
[2017-11-05] MEDS ORDERED: Citalopram 20 MG Tab PO SCH (09:00)
[2017-11-05] MEDS: Saccharomyces Boulardii (Probiotic) 250 MG Cap PO SCH (09:26)
[2017-11-05] MEDS: Fish Oil/Omega-3 Fatty Acids 1 Gm Cap PO SCH (09:26)
[2017-11-05] MEDS: Citalopram 10 MG Tab PO SCH (09:27)
[2017-11-05] MEDS: Pseudoephedrine 30 MG Tab PO SCH ×2 (09:27→21:53)
[2017-11-05] MEDS: Loratadine 10 MG Tab PO SCH ×2 (09:27→21:56)
[2017-11-05] MEDS: Pantoprazole 40 MG Tab.CR PO SCH ×2 (09:27→21:54)
[2017-11-05] MEDS: Simvastatin 10 MG Tab PO SCH (09:28)
[2017-11-05] MEDS: Levothyroxine 125 MCG Tab PO SCH (09:28)
[2017-11-05] MEDS: Calcium Carbonate 600 MG Tab PO SCH (09:29)
[2017-11-05] MEDS: LORazepam 1 MG Tab PO SCH ×2 (09:29→21:53)
[2017-11-05] MEDS: Sucralfate 1 GM Tab PO SCH ×4 (09:29→21:56)
[2017-11-05] MEDS: Aspirin 81 MG Tab.Chew PO SCH (09:30)
[2017-11-05] MEDS: Nicotine 21 MG/24 Hr Patch TRDERM SCH (09:30)
[2017-11-05] MEDS: Acetaminophen/HYDROcodone 325-5 MG Tab PO SCH ×3 (09:31→22:08)
[2017-11-05] MEDS: ERGOCALCIFEROL 2000 UNIT PO SCH (09:38)
--- NOTE | 2017-11-05 13:53 | CONS ---
CONSULTING PHYSICIAN: Benoit Ruelas MD DATE OF CONSULTATION: 11/05/2017 This is a 60-minute inpatient clinical event. IDENTIFICATION: The patient is a 67-year-old female who is admitted to the inpatient Med/Surg Unit at [facility] in [place], [place] on 11/04/2017. She is seen for psychiatric evaluation. CHIEF COMPLAINT: "It was pretty good." HISTORY OF PRESENT ILLNESS: The patient is a 67-year-old female who was admitted to the inpatient medical unit at [facility] on 11/04/2017 secondary to complaints of headache and then difficulty speaking. The patient was subsequently diagnosed with cerebral infarcts and is being treated for presumptive stroke at this point in time. The patient is with a possible history of depression, but has been off her psychiatric medications for about a year now, and staff is requesting consult to assess for depression at this point in time. After admission, the patient was started on a combination of trazodone, Celexa, and Ativan. She states that she is doing "pretty good" at the moment, but is really unable to articulate any other answers to questions are posed to her during the interview. It is unclear, if the patient has dysarthria condition as a result of her stroke or if she is not cognitively intact at the moment because of the stroke. She states that she is "doing good," when asked what day of the week it is; she states that "I am doing good," when asked where she is from. No other answers are able to be obtained on interview except for the fact that the patient is "doing good" this morning. MEDICATIONS: At time of presentation. 1. Trazodone 150-300 mg q.h.s. 2. Celexa 60 mg daily. 3. Ativan 1 mg b.i.d. ALLERGIES: The patient is allergic to allergy to sulfa. PAST MEDICAL HISTORY: Status post stroke. REVIEW OF SYSTEMS: Aside from neuro, all other major organ systems are negative at this point in time for acute difficulties or complications. FAMILY PSYCHIATRIC AND CD HISTORY: Unable to obtain. PAST PSYCHIATRIC AND CD HISTORY: Unable to obtain. SOCIAL HISTORY: Unable to obtain. MENTAL STATUS EXAM: The patient is a 67-year-old white female, in no apparent distress. Speech is significant for increased latency of response and shortened duration of utterance. Psychomotor activity is within normal limits. There is no abnormal motor movements or tics observed. The patient is not appearing to be cognitively oriented and is unable to answer questions about orientation. Gait and station are not observed. This patient is lying in bed during the inpatient consult. Mood is "pretty good." Affect is cooperative overall for the purposes of the inpatient consult. There does not appear to be any evidence of acute suicidal or homicidal ideation, or acute psychotic, delusional, or paranoid symptoms, but again, the patient could not articulate whether this is so. Thought processes appear impaired possibly secondary to the patient's stroke, the patient is unable to express her thought processes verbally. There are no acute manic symptoms or loose associations evident. Judgment and insight appear impaired at this point in time secondary to sequelae from stroke. Motivation for help, unable to be fully assessed at this time. VITAL SIGNS: 101/54, 72, 14, 97.4 degrees. IMPRESSION: [address] I: 1. Depression, not otherwise specified, F32.9. 2. Rule out major depressive disorder. 3. Rule out anxiety disorder. [address] II: None. [address] III: 1. Status post stroke. [address] IV: Severe. [address] V: 45 to 50. PLAN: 1. Recommend decreasing the patient's trazodone from 300 mg q.h.s. to 50 q.h.s. to help with sleep initiation, maintenance, and mood. 2. Recommend decreasing the patient's Celexa from 60 to 10 mg daily to help with mood. 3. Continue Ativan 1 mg b.i.d. for anxiety reduction on an as needed basis. 4. Other medications as dosed and prescribed by the patient's primary inpatient medical treatment team. 5. Would recommend having a cognitive evaluation done for patient going forward as she continues to convalesce on the medical unit. 6. We will continue to follow up with the patient on an as-needed basis while she remains on inpatient medical unit. 7. We will follow up with the patient sooner, if any complications in the interim. 8. Crisis plan is in place. RACQUEL /[id number]
[2017-11-05] MEDS: Sodium Chloride 0.9% 1,000 ML IV SCH (14:12)
--- NOTE | 2017-11-05 16:08 | PCM.PN ---
- General Info Date of Service: 11/05/17 Admission Dx/Problem (Free Text): Admission Diagnosis/Problem Admission Diagnosis/Problem CVA, Cerebrovascular accident Subjective Update: In to see Chelsea today. She is lying in bed. She appears much more alert than when I admitted her last night. She is able to hold simple conversations. There is still some struggle with longer words and she does display some difficulty searching for words. She is much more friendly and less depresses appearing. She reports that she has been attempting to read some basic things as reading is a favorite activity of hers and she has noted some difficulty with words. She reports that she was not taking any of her meds over the past year, including her statin and levothyroxine. I explained to her how her LDL is high and she will need to resume her statin to avoid a higher risk of future strokes. She reports that she would like to continue following up with [facility]GIO Zamudio in [place]. She is walking very well per physical therapy and they have signed off on her. Echo was obtained and we are awaiting results. Overall she appears to be improving. She may benefit from GEOPHYSICAL PROSPECTING SURVEYOR therapy. Orders are in for a cognitive evaluation and therapy. Dr. sharma saw her today and did recommend some medication changes. Functional Status: Reports: Pain Controlled, Tolerating Diet, Ambulating, Urinating. Denies: New Symptoms - Review of Systems General: Reports: No Symptoms. Denies: Fever, Weakness, Fatigue, Malaise, Chills HEENT: Reports: Headaches. Denies: Ear Pain, Eye Pain, Sinus Congestion, Visual Changes Pulmonary: Reports: No Symptoms. Denies: Shortness of Breath, Pleuritic Chest Pain, Cough, Sputum, Wheezing Cardiovascular: Reports: No Symptoms. Denies: Chest Pain, Palpitations, Dyspnea on Exertion Gastrointestinal: Reports: No Symptoms. Denies: Abdominal Pain, Constipation, Diarrhea, Nausea, Vomiting Genitourinary: Reports: No Symptoms Musculoskeletal: Reports: No Symptoms Skin: Reports: No Symptoms Neurological: Reports: Headache, Trouble Speaking, Change in Speech. Denies: Pre-Existing Deficit, Difficulty Walking, Gait Disturbance Psychiatric: Reports: No Symptoms - Patient Data Vitals - Most Recent: Last Vital Signs Temp 98.1 F 11/05/17 12:00 Pulse 83 11/05/17 13:26 Resp 20 11/05/17 13:26 BP 127/62 11/05/17 13:26 Pulse Ox 94 L 11/05/17 13:26 Weight - Most Recent: 130 lb I&O - Last 24 Hours: Intake & Output 11/05/17 11/05/17 11/05/17 06:59 14:59 22:59 Intake Total 900 180 80 Output Total 200 Balance 700 180 80 Lab Results Last 24 Hours: Laboratory Results - last 24 hr 11/05/17 11/05/17 Range/Units 06:03 06:03 WBC 6.19 (3.98-10.04) K/mm3 RBC 3.98 (3.98-5.22) M/mm3 Hgb 12.5 (11.2-15.7) gm/L Hct 38.2 (34.1-44.9) % MCV 96.0 H (79.4-94.8) fl MCH 31.4 (25.6-32.2) pg MCHC 32.7 (32.2-35.5) g/dl RDW Std Deviation 47.7 H (36.4-46.3) fL Plt Count 204 (182-369) K/mm3 MPV 9.3 L (9.4-12.3) fl Neut % (Auto) 63.7 (34.0-71.1) % Lymph % (Auto) 20.4 (19.3-51.7) % Ceiba % (Auto) 9.2 (4.7-12.5) % Eos % (Auto) 6.0 H (0.7-5.8) Baso % (Auto) 0.5 (0.1-1.2) % Neut # (Auto) 3.95 (1.56-6.13) K/mm3 Lymph # (Auto) 1.26 (1.18-3.74) K/mm3 Ceiba # (Auto) 0.57 H (0.24-0.36) K/mm3 Eos # (Auto) 0.37 H (0.04-0.36) K/mm3 Baso # (Auto) 0.03 (0.01-0.08) K/mm3 Sodium 141 (136-145) mEq/L Potassium 3.9 (3.5-5.1) mEq/L Chloride 109 H (98-107) mEq/L Carbon Dioxide 25 (21-32) mEq/L Anion Gap 10.9 (5-15) BUN 18 (7-18) mg/dL Creatinine 0.6 (0.55-1.02) mg/dL Est Cr Clr Drug Dosing 71.96 mL/min Estimated GFR (MDRD) > 60 (>60) mL/min BUN/Creatinine Ratio 30.0 H (14-18) Glucose 96 (80-115) mg/dL Calcium 8.6 (8.5-10.1) mg/dL Magnesium 2.0 (1.8-2.4) mg/dl Triglycerides 147 (<150) mg/dL Cholesterol 204 H (<200) mg/dL LDL Cholesterol Direct 131 H* (<100) mg/dL HDL Cholesterol 43.0 (40-59) mg/dL Med Orders - Current: Current Medications Acetaminophen (Tylenol) 650 mg PO Q4H PRN PRN Reason: Pain (Mild 1-3)/fever Hydrocodone Bitart/Acetaminophen ([place] 325-5 Mg) 1 tab PO Q4H PRN PRN Reason: Pain (moderate 4-6) Hydrocodone Bitart/Acetaminophen ([place] 325-5 Mg) 1.5 tab PO TID [facility] Last Admin: 11/05/17 14:09 Dose: 1.5 tab Albuterol/Ipratropium (Duoneb 3.0-0.5 Mg/3 Ml) 3 ml NEB Q4H PRN PRN Reason: Shortness Of Breath/wheezing Aspirin (Aspirin) 162 mg PO DAILY [facility] Last Admin: 11/05/17 09:30 Dose: 162 mg Bisacodyl (Dulcolax) 5 mg PO DAILY PRN PRN Reason: Constipation Calcium Carbonate/Glycine (Calcium Carbonate) 600 mg PO DAILY [facility] Last Admin: 11/05/17 09:29 Dose: 600 mg Citalopram Hydrobromide (Celexa) 10 mg PO DAILY [facility] Last Admin: 11/05/17 09:27 Dose: 10 mg Docusate Sodium (Colace) 100 mg PO BID PRN PRN Reason: Constipation Fish Oil (Fish Oil) 1 gm PO DAILY [facility] Last Admin: 11/05/17 09:26 Dose: 1 gm Hydralazine HCl (Apresoline) 20 mg IVPUSH Q4H PRN PRN Reason: Hypertension Hydromorphone HCl (Dilaudid) 0.25 mg IVPUSH Q2H PRN PRN Reason: Pain (severe 7-10) Promethazine HCl 12.5 mg/ (Sodium Chloride) 50.5 mls @ 100 mls/hr IV Q6H PRN PRN Reason: Nausea/Vomiting Sodium Chloride (Normal Saline) 1,000 mls @ 50 mls/hr IV ASDIRECTED [facility] Last Admin: 11/05/17 14:12 Dose: 50 mls/hr Levothyroxine Sodium (Levothyroxine) 125 mcg PO DAILY [facility] Last Admin: 11/05/17 09:28 Dose: 125 mcg Loratadine (Claritin) 10 mg PO BID [facility] Last Admin: 11/05/17 09:27 Dose: 10 mg Lorazepam (Ativan) 0.25 mg IV Q6H PRN PRN Reason: Anxiety Lorazepam (Ativan) 1 mg PO BID [facility] Last Admin: 11/05/17 09:29 Dose: 1 mg Metoprolol Tartrate (Lopressor) 5 mg IVPUSH Q4H PRN PRN Reason: Tachycardia Miscellaneous Information (Remove Patch) 0 ea TRDERM DAILY [facility] Last Admin: 11/05/17 09:34 Dose: 1 ea Mometasone Furoate (Asmanex Hfa 100mcg) 0 gm INH BID [facility] Last Admin: 11/05/17 08:32 Dose: 1 puff Nicotine (Habitrol) 21 mg TRDERM DAILY [facility] Last Admin: 11/05/17 09:30 Dose: 21 mg Ondansetron HCl (Zofran) 4 mg IV Q4H PRN PRN Reason: Nausea/Vomiting Pantoprazole Sodium (Protonix) 40 mg PO BID [facility] Last Admin: 11/05/17 09:27 Dose: 40 mg Ergocalciferol ( Vitamin D2) [Vitamin D2] 2,000 Unit 0 each PO DAILY [facility] Last Admin: 11/05/17 09:38 Dose: Not Given Leflunomide 20 Mg 0 each PO DAILY [facility] Last Admin: 11/05/17 09:38 Dose: Not Given Potassium Gluconate (595 Mg) 0 each PO DAILY [facility] Last Admin: 11/05/17 09:38 Dose: Not Given Ubidecarenone 100 Mg 0 each PO DAILY [facility] Last Admin: 11/05/17 09:38 Dose: Not Given Polyethylene Glycol (Miralax) 17 gm PO DAILY PRN PRN Reason: Constipation Pseudoephedrine HCl (Sudogest) 120 mg PO BID [facility] Last Admin: 11/05/17 09:27 Dose: 120 mg Saccharomyces Boulardii (Florastor) 250 mg PO DAILY [facility] Last Admin: 11/05/17 09:26 Dose: 250 mg Senna/Docusate Sodium (Senna Plus) 1 tab PO BID PRN PRN Reason: Constipation Simvastatin (Zocor) 10 mg PO DAILY [facility] Last Admin: 11/05/17 09:28 Dose: 10 mg Sucralfate (Carafate) 1 gm PO QID [facility] Last Admin: 11/05/17 14:09 Dose: 1 gm Sulindac (Clinoril) 150 mg PO BID [facility] Last Admin: 11/05/17 09:27 Dose: 150 mg Temazepam (Restoril) 7.5 mg PO BEDTIME PRN PRN Reason: Sleep Tiotropium [place] (Spiriva Handihaler) 18 mcg INH DAILY [facility] Last Admin: 11/05/17 08:32 Dose: 1 cap Trazodone HCl (Trazodone) 50 mg PO BEDTIME [facility] Triamcinolone Acetonide (Triamcinolone Acetonide 0.1% Crm) 0 gm TOP DAILY PRN PRN Reason: Itching Discontinued Medications Aspirin (Aspirin) 324 mg PO ONETIME ONE Stop: 11/04/17 10:15 Last Admin: 11/04/17 10:47 Dose: 324 mg Citalopram Hydrobromide (Celexa) 60 mg PO DAILY [facility] Hydromorphone HCl (Dilaudid) 0.5 mg IVPUSH ONETIME ONE Stop: 11/04/17 10:16 Last Admin: 11/04/17 10:45 Dose: 0.5 mg Dextrose/Sodium Chloride (Dextrose 5%-Normal Saline) 1,000 mls @ 125 mls/hr IV ASDIRECTED [facility] Last Admin: 11/04/17 10:43 Dose: 125 mls/hr Magnesium Sulfate (Pharmacy To Dose - Magnesium Replacement) 1 dose .XX ASDIRECTED [facility] Midazolam HCl (Versed 1 Mg/Ml) 2 mg IVPUSH ONETIME ONE Stop: 11/04/17 11:49 Last Admin: 11/04/17 12:04 Dose: 2 mg Ondansetron HCl (Zofran) 4 mg IVPUSH ONETIME ONE Stop: 11/04/17 10:17 Last Admin: 11/04/17 10:43 Dose: 4 mg Potassium Chloride (Pharmacy To Dose - Potassium Replacement) 1 dose .XX ASDIRECTED [facility] Trazodone HCl (Trazodone) 150 - 300 mg PO BEDTIME [facility] Last Admin: 11/04/17 21:06 Dose: 150 mg - Exam Quality Assessment: DVT Prophylaxis General: Alert, Oriented, Cooperative, No Acute Distress HEENT: Pupils Equal, Pupils Reactive, Mucous Membr. Moist/[place] Neck: Supple, Trachea Midline. No: No JVD Lungs: Clear to Auscultation, Normal Respiratory Effort, Decreased Breath Sounds Cardiovascular: Regular Rate, Regular Rhythm GI/Abdominal Exam: Normal Bowel Sounds, Soft, Non-Tender, No Organomegaly, No Distention, No Abnormal Bruit, No Mass, Pelvis Stable (Female) Exam: Deferred Back Exam: Normal Inspection, Full Range of Motion Extremities: Normal Inspection, Normal Range of Motion, Non-Tender, No Pedal Edema, Normal Capillary Refill Peripheral Pulses: 1+: Posterior Tibial (L), Posterior Tibial (R), Dorsalis Pedis (L), Dorsalis Pedis (R), 2+: Radial (L), Radial (R) Skin: Warm, Dry, Intact Neurological: No New Focal Deficit Psy/Mental Status: Alert, Normal Affect, Normal Mood - Problem List & Annotations (1) Cerebrovascular accident (CVA) SNOMED Code(s): 805292035 Code(s): I63.9 - CEREBRAL INFARCTION, UNSPECIFIED Status: Acute Priority : High Current Visit: Yes Qualifiers: CVA mechanism: unspecified Qualified Code(s): I63.9 - Cerebral infarction, unspecified (2) Asthma SNOMED Code(s): 482849144 Code(s): J45.909 - UNSPECIFIED ASTHMA, UNCOMPLICATED Status: Chronic Priority: Low Current Visit: No Qualifiers: Asthma severity: unspecified severity Asthma persistence: unspecified Asthma complication type: unspecified Qualified Code(s): J45.909 - Unspecified asthma, uncomplicated (3) COPD (chronic obstructive pulmonary disease) SNOMED Code(s): 21186514 Code(s): J44.9 - CHRONIC OBSTRUCTIVE PULMONARY DISEASE, UNSPECIFIED Status : Chronic Priority: Low Current Visit: No Qualifiers: COPD type: unspecified COPD Qualified Code(s): J44.9 - Chronic obstructive pulmonary disease, unspecified (4) Depression SNOMED Code(s): 73835937 Code(s): F32.9 - MAJOR DEPRESSIVE DISORDER, SINGLE EPISODE, UNSPECIFIED Status: Chronic Priority: Medium Current Visit: Yes Qualifiers: Depression Type: other depression Qualified Code(s): F32.89 - Other specified depressive episodes (5) Insomnia SNOMED Code(s): 980993527 Code(s): G47.00 - INSOMNIA, UNSPECIFIED Status: Chronic Priority: Low Current Visit: No Qualifiers: Insomnia type: unspecified Qualified Code(s): G47.00 - Insomnia, unspecified (6) Hypothyroidism SNOMED Code(s): 57561559 Code(s): E03.9 - HYPOTHYROIDISM, UNSPECIFIED Status: Chronic Priority: Medium Current Visit: Yes Qualifiers: Hypothyroidism type: unspecified Qualified Code(s): E03.9 - Hypothyroidism , unspecified (7) Medical non-compliance SNOMED Code(s): 063231609 Code(s): Z91.19 - PATIENT'S NONCOMPLIANCE W OTH MEDICAL TREATMENT AND REGIMEN Status: Acute Priority: High Current Visit: Yes - Problem List Review Problem List Initiated/Reviewed/Updated: Yes - My Orders Last 24 Hours: My Active Orders 11/04/17 15:30 Nicotine [Habitrol] 21 mg TRDERM DAILY 11/04/17 23:20 Neuro Check [RC] BID 11/05/17 02:34 Up With Assistance [RC] ASDIRECTED 11/05/17 02:46 Consult to Physician [CONS] Routine 11/05/17 02:48 Notify Provider Consults [RC] ASDIRECTED 11/05/17 09:00 Remove Patch 0 ea TRDERM DAILY - Plan Plan:: I/P: Acute: CVA -Last seen well 11/03/17 around 1145 - noted difficulty communicating -Stopped taking all medicines about a year ago per and her -Risk factors: Smoker, hx/o hld, avoids medical provider -VSS -CT (11/04/17) notes area in left parietal and occipital cortex of diminished blood flow -Old infarct within left anterior frontal region -Diminished density wihtin periventricular white matter compatable with small vessel ischemic demyelenation changes -Atherosclerotic desiccation within carotid siphon and vertebral vessesl -324mg ASA given in ED - switch to 162mg daily -Carotid ultrasound (11/04/17) - moderate amount of plaque -Stenosis within 1-49% bilaterally -MRI (11/04/17) - Fairly acute but irreversible infarcts in left temporoparietal region in medial left occipital lobe -Low signal findings in temoporal parietal infarct compatable with microscopic hemorrhages -Small vessel ischemic demyelination changes noted -Old infarcts within both frontal lobes seen -Echo obtained -EF by Herrera's MOD the proximal was approximately 62%. -Impaired relaxation (grade 1) pattern of LV diastolic filling. -Right ventricle size is normal. Right ventricular systolic function is normal. -Left atrium is normal in size. -Right atrium is normal size. -Aortic valve is tricuspid. -Moderate aortic valve sclerosis without stenosis. -Mitral valve is degenerative in appearance. -Mitral leaflet mobility is normal. Mild MV regurgitation. -Tricuspid valve normal in structure. Trace TV regurgitation. -Pulmonic valve normal structure. Pulmonary artery is of normal size margin. -Lipid panel - Triglycerides 147, cholesterol 24, LDL 131, HDL 43 -Restart statin -Will need f/u with PCP to possibly adjust dosage -BID neuro checks -GEOPHYSICAL PROSPECTING SURVEYOR evaluation - No swallowing issues, cognitive eval and speech eval ordered. Hypothyroidism -TSH 10.843 -Free T4 0.87 -Resume home Synthroid -Will need f/u with PCP to re-check in 4-6 weeks Chronic: Asthma - home meds COPD - home meds Depression - consider zachary consult Insomnia tobacco use disorder - nicotine patch, skilled nursing facility counselor on smoking cessation Plan: Admit to medical floor on telemetry CM/SW for discharge planning PT/OT Other orders as indicated above Routine AM labs Home medications as ordered DVT/PE prophylaxis: SCDs Expected discharge this Wednesday or Wednesday. Code status: Full code; PCP Lisette Reid in [place], although she has not seen her in some time.
[2017-11-05] MEDS: traZODone 50 MG Tab PO SCH (21:52)
[2017-11-06] MEDS: Citalopram 10 MG Tab PO SCH (08:15)
[2017-11-06] MEDS: Saccharomyces Boulardii (Probiotic) 250 MG Cap PO SCH (08:15)
[2017-11-06] MEDS: LORazepam 1 MG Tab PO SCH ×2 (08:16→20:42)
[2017-11-06] MEDS: Aspirin 81 MG Tab.Chew PO SCH (08:16)
[2017-11-06] MEDS: Calcium Carbonate 600 MG Tab PO SCH (08:17)
[2017-11-06] MEDS: Fish Oil/Omega-3 Fatty Acids 1 Gm Cap PO SCH (08:17)
[2017-11-06] MEDS: Pseudoephedrine 30 MG Tab PO SCH ×2 (08:17→20:42)
[2017-11-06] MEDS: Simvastatin 10 MG Tab PO SCH (08:19)
[2017-11-06] MEDS: Levothyroxine 125 MCG Tab PO SCH (08:19)
[2017-11-06] MEDS: Loratadine 10 MG Tab PO SCH ×2 (08:20→20:44)
[2017-11-06] MEDS: Sucralfate 1 GM Tab PO SCH ×4 (08:20→20:44)
[2017-11-06] MEDS: Pantoprazole 40 MG Tab.CR PO SCH ×2 (08:20→20:42)
[2017-11-06] MEDS: Acetaminophen/HYDROcodone 325-5 MG Tab PO SCH ×3 (08:21→20:43)
[2017-11-06] MEDS: Nicotine 21 MG/24 Hr Patch TRDERM SCH (08:23)
[2017-11-06] MEDS: ERGOCALCIFEROL 2000 UNIT PO SCH (08:25)
[2017-11-06] MEDS: Mometasone Furoate HFA 100mcg/Puff 13 GM Inhaler INH SCH ×2 (08:51→20:25)
[2017-11-06] MEDS: Tiotropium Inhaler 18 MCG Inhalation Powder Cap Kit of 5 INH SCH (08:51)
[2017-11-06] MEDS ORDERED: FLU Vacc TS 2017-18 (65yr UP)/PF 180 MCG/0.5 ML Syringe IM ONE (12:15)
[2017-11-06] MEDS: Sodium Chloride 0.9% 1,000 ML IV SCH (12:41)
--- NOTE | 2017-11-06 16:53 | PCM.PN ---
- General Info Date of Service: 11/06/17 Functional Status: Reports: Tolerating Diet, Ambulating, Urinating - Review of Systems General: Reports: Weakness HEENT: Reports: No Symptoms Pulmonary: Reports: No Symptoms Cardiovascular: Reports: No Symptoms Gastrointestinal: Reports: No Symptoms Genitourinary: Reports: No Symptoms Musculoskeletal: Reports: No Symptoms Skin: Reports: No Symptoms Neurological: Reports: Trouble Speaking (expressive) Psychiatric: Reports: No Symptoms - Patient Data Vitals - Most Recent: Last Vital Signs Temp 37.0 C 11/06/17 15:29 Pulse 72 11/06/17 15:29 Resp 12 11/06/17 15:29 BP 120/86 11/06/17 15:29 Pulse Ox 93 L 11/06/17 15:29 Weight - Most Recent: 54.749 kg I&O - Last 24 Hours: Intake & Output 11/06/17 11/06/17 11/06/17 06:59 14:59 22:59 Intake Total 1300 90 1116 Output Total 1750 1250 Balance -450 90 -134 Lab Results Last 24 Hours: Laboratory Results - last 24 hr 11/06/17 Range/Units 05:25 Sodium 140 (136-145) mEq/L Potassium 4.1 (3.5-5.1) mEq/L Chloride 106 (98-107) mEq/L Carbon Dioxide 24 (21-32) mEq/L Anion Gap 14.1 (5-15) BUN 15 (7-18) mg/dL Creatinine 0.7 (0.55-1.02) mg/dL Est Cr Clr Drug Dosing 61.68 mL/min Estimated GFR (MDRD) > 60 (>60) mL/min BUN/Creatinine Ratio 21.4 H (14-18) Glucose 87 (80-115) mg/dL Calcium 8.8 (8.5-10.1) mg/dL Magnesium 1.9 (1.8-2.4) mg/dl Med Orders - Current: Current Medications Acetaminophen (Tylenol) 650 mg PO Q4H PRN PRN Reason: Pain (Mild 1-3)/fever Hydrocodone Bitart/Acetaminophen ([place] 325-5 Mg) 1 tab PO Q4H PRN PRN Reason: Pain (moderate 4-6) Hydrocodone Bitart/Acetaminophen ([place] 325-5 Mg) 1.5 tab PO TID [facility] Last Admin: 11/06/17 14:29 Dose: 1.5 tab Albuterol/Ipratropium (Duoneb 3.0-0.5 Mg/3 Ml) 3 ml NEB Q4H PRN PRN Reason: Shortness Of Breath/wheezing Aspirin (Aspirin) 162 mg PO DAILY [facility] Last Admin: 11/06/17 08:16 Dose: 162 mg Bisacodyl (Dulcolax) 5 mg PO DAILY PRN PRN Reason: Constipation Calcium Carbonate/Glycine (Calcium Carbonate) 600 mg PO DAILY [facility] Last Admin: 11/06/17 08:17 Dose: 600 mg Citalopram Hydrobromide (Celexa) 10 mg PO DAILY [facility] Last Admin: 11/06/17 08:15 Dose: 10 mg Docusate Sodium (Colace) 100 mg PO BID PRN PRN Reason: Constipation Fish Oil (Fish Oil) 1 gm PO DAILY [facility] Last Admin: 11/06/17 08:17 Dose: 1 gm Hydralazine HCl (Apresoline) 20 mg IVPUSH Q4H PRN PRN Reason: Hypertension Hydromorphone HCl (Dilaudid) 0.25 mg IVPUSH Q2H PRN PRN Reason: Pain (severe 7-10) Promethazine HCl 12.5 mg/ (Sodium Chloride) 50.5 mls @ 100 mls/hr IV Q6H PRN PRN Reason: Nausea/Vomiting Sodium Chloride (Normal Saline) 1,000 mls @ 50 mls/hr IV ASDIRECTED [facility] Last Admin: 11/06/17 12:41 Dose: 50 mls/hr Levothyroxine Sodium (Levothyroxine) 125 mcg PO DAILY [facility] Last Admin: 11/06/17 08:19 Dose: 125 mcg Loratadine (Claritin) 10 mg PO BID [facility] Last Admin: 11/06/17 08:20 Dose: 10 mg Lorazepam (Ativan) 0.25 mg IV Q6H PRN PRN Reason: Anxiety Lorazepam (Ativan) 1 mg PO BID [facility] Last Admin: 11/06/17 08:16 Dose: 1 mg Metoprolol Tartrate (Lopressor) 5 mg IVPUSH Q4H PRN PRN Reason: Tachycardia Miscellaneous Information (Remove Patch) 0 ea TRDERM DAILY [facility] Last Admin: 11/06/17 08:25 Dose: 1 ea Mometasone Furoate (Asmanex Hfa 100mcg) 0 gm INH BID [facility] Last Admin: 11/06/17 08:51 Dose: 1 puff Nicotine (Habitrol) 21 mg TRDERM DAILY [facility] Last Admin: 11/06/17 08:23 Dose: 21 mg Ondansetron HCl (Zofran) 4 mg IV Q4H PRN PRN Reason: Nausea/Vomiting Pantoprazole Sodium (Protonix) 40 mg PO BID [facility] Last Admin: 11/06/17 08:20 Dose: 40 mg Ergocalciferol ( Vitamin D2) [Vitamin D2] 2,000 Unit 0 each PO DAILY [facility] Last Admin: 11/06/17 08:25 Dose: Not Given Leflunomide 20 Mg 0 each PO DAILY [facility] Last Admin: 11/06/17 08:25 Dose: Not Given Potassium Gluconate (595 Mg) 0 each PO DAILY [facility] Last Admin: 11/06/17 08:25 Dose: Not Given Ubidecarenone 100 Mg 0 each PO DAILY [facility] Last Admin: 11/06/17 08:25 Dose: Not Given Polyethylene Glycol (Miralax) 17 gm PO DAILY PRN PRN Reason: Constipation Pseudoephedrine HCl (Sudogest) 120 mg PO BID [facility] Last Admin: 11/06/17 08:17 Dose: 120 mg Saccharomyces Boulardii (Florastor) 250 mg PO DAILY [facility] Last Admin: 11/06/17 08:15 Dose: 250 mg Senna/Docusate Sodium (Senna Plus) 1 tab PO BID PRN PRN Reason: Constipation Simvastatin (Zocor) 10 mg PO DAILY [facility] Last Admin: 11/06/17 08:19 Dose: 10 mg Sucralfate (Carafate) 1 gm PO QID [facility] Last Admin: 11/06/17 12:41 Dose: 1 gm Sulindac (Clinoril) 150 mg PO BID [facility] Last Admin: 11/06/17 08:18 Dose: 150 mg Temazepam (Restoril) 7.5 mg PO BEDTIME PRN PRN Reason: Sleep Tiotropium [place] (Spiriva Handihaler) 18 mcg INH DAILY [facility] Last Admin: 11/06/17 08:51 Dose: 1 cap Trazodone HCl (Trazodone) 50 mg PO BEDTIME [facility] Last Admin: 11/05/17 21:52 Dose: 50 mg Triamcinolone Acetonide (Triamcinolone Acetonide 0.1% Crm) 0 gm TOP DAILY PRN PRN Reason: Itching Discontinued Medications Aspirin (Aspirin) 324 mg PO ONETIME ONE Stop: 11/04/17 10:15 Last Admin: 11/04/17 10:47 Dose: 324 mg Citalopram Hydrobromide (Celexa) 60 mg PO DAILY [facility] Hydromorphone HCl (Dilaudid) 0.5 mg IVPUSH ONETIME ONE Stop: 11/04/17 10:16 Last Admin: 11/04/17 10:45 Dose: 0.5 mg Dextrose/Sodium Chloride (Dextrose 5%-Normal Saline) 1,000 mls @ 125 mls/hr IV ASDIRECTED [facility] Last Admin: 11/04/17 10:43 Dose: 125 mls/hr Influenza Virus Vaccine (Pharmacy To Dose - Influenza Vaccine) 1 each IM ONETIME ONE Stop: 11/06/17 12:04 Influenza Virus Vaccine (Fluzone High-Dose ) 180 mcg IM .ONCE ONE Stop: 11/06/17 12:16 Magnesium Sulfate (Pharmacy To Dose - Magnesium Replacement) 1 dose .XX ASDIRECTED [facility] Midazolam HCl (Versed 1 Mg/Ml) 2 mg IVPUSH ONETIME ONE Stop: 11/04/17 11:49 Last Admin: 11/04/17 12:04 Dose: 2 mg Ondansetron HCl (Zofran) 4 mg IVPUSH ONETIME ONE Stop: 11/04/17 10:17 Last Admin: 11/04/17 10:43 Dose: 4 mg Potassium Chloride (Pharmacy To Dose - Potassium Replacement) 1 dose .XX ASDIRECTED [facility] Trazodone HCl (Trazodone) 150 - 300 mg PO BEDTIME [facility] Last Admin: 11/04/17 21:06 Dose: 150 mg - Exam Quality Assessment: DVT Prophylaxis General: Alert, Oriented, Cooperative, No Acute Distress HEENT: Pupils Equal, Pupils Reactive, EOMI Neck: Supple, Trachea Midline Lungs: Normal Respiratory Effort Cardiovascular: Regular Rate, Regular Rhythm GI/Abdominal Exam: Normal Bowel Sounds, Soft, Non-Tender, No Organomegaly, No Distention (Female) Exam: Deferred Back Exam: Normal Inspection Extremities: Normal Inspection Skin: Warm Neurological: No New Focal Deficit Psy/Mental Status: Alert, Normal Affect, Normal Mood - Problem List Review Problem List Initiated/Reviewed/Updated: Yes - My Orders Last 24 Hours: My Active Orders 11/07/17 05:00 CBC WITH AUTO DIFF [HEME] Routine CRP [C-REACTIVE PROTEIN] [CHEM] Routine - Plan Plan:: I/P: Acute: CVA -Last seen well 11/03/17 around 1145 - noted difficulty communicating -Stopped taking all medicines about a year ago per and her -Risk factors: Smoker, hx/o hld, avoids medical provider -VSS -CT (11/04/17) notes area in left parietal and occipital cortex of diminished blood flow -Old infarct within left anterior frontal region -Diminished density wihtin periventricular white matter compatable with small vessel ischemic demyelenation changes -Atherosclerotic desiccation within carotid siphon and vertebral vessesl -324mg ASA given in ED - switch to 162mg daily -Carotid ultrasound (11/04/17) - moderate amount of plaque -Stenosis within 1-49% bilaterally -MRI (11/04/17) - Fairly acute but irreversible infarcts in left temporoparietal region in medial left occipital lobe -Low signal findings in temoporal parietal infarct compatable with microscopic hemorrhages -Small vessel ischemic demyelination changes noted -Old infarcts within both frontal lobes seen -Echo obtained -EF by Herrera's MOD the proximal was approximately 62%. -Impaired relaxation (grade 1) pattern of LV diastolic filling. -Right ventricle size is normal. Right ventricular systolic function is normal. -Left atrium is normal in size. -Right atrium is normal size. -Aortic valve is tricuspid. -Moderate aortic valve sclerosis without stenosis. -Mitral valve is degenerative in appearance. -Mitral leaflet mobility is normal. Mild MV regurgitation. -Tricuspid valve normal in structure. Trace TV regurgitation. -Pulmonic valve normal structure. Pulmonary artery is of normal size margin. -Lipid panel - Triglycerides 147, cholesterol 24, LDL 131, HDL 43 -Restart statin -Will need f/u with PCP to possibly adjust dosage -BID neuro checks -SENIOR VICE PRESIDENT evaluation - No swallowing issues, cognitive eval and speech eval ordered. Hypothyroidism -TSH 10.843 -Free T4 0.87 -Resume home Synthroid -Will need f/u with PCP to re-check in 4-6 weeks Chronic: Asthma - home meds COPD - home meds Depression - consider zachary consult Insomnia tobacco use disorder - nicotine patch, head counselor on smoking cessation Plan: Admit to medical floor on telemetry CM/SW for discharge planning PT/OT Other orders as indicated above Routine AM labs Home medications as ordered DVT/PE prophylaxis: SCDs Expected discharge this Wednesday or Wednesday. Code status: Full code; PCP Lisette Reid in [place], although she has not seen her in some time. LOS>96 hours for CVA recovery and placement
[2017-11-06] MEDS: traZODone 50 MG Tab PO SCH (20:44)
[2017-11-07] MEDS: Mometasone Furoate HFA 100mcg/Puff 13 GM Inhaler INH SCH ×2 (09:47→20:09)
[2017-11-07] MEDS: Tiotropium Inhaler 18 MCG Inhalation Powder Cap Kit of 5 INH SCH (09:47)
[2017-11-07] MEDS: Saccharomyces Boulardii (Probiotic) 250 MG Cap PO SCH (10:05)
[2017-11-07] MEDS: Pseudoephedrine 30 MG Tab PO SCH ×2 (10:05→20:26)
[2017-11-07] MEDS: Aspirin 81 MG Tab.Chew PO SCH (10:06)
[2017-11-07] MEDS: Loratadine 10 MG Tab PO SCH ×2 (10:06→20:28)
[2017-11-07] MEDS: Pantoprazole 40 MG Tab.CR PO SCH ×2 (10:06→20:29)
[2017-11-07] MEDS: Citalopram 10 MG Tab PO SCH (10:06)
[2017-11-07] MEDS: Simvastatin 10 MG Tab PO SCH (10:07)
[2017-11-07] MEDS: Fish Oil/Omega-3 Fatty Acids 1 Gm Cap PO SCH (10:07)
[2017-11-07] MEDS: Levothyroxine 125 MCG Tab PO SCH (10:07)
[2017-11-07] MEDS: Calcium Carbonate 600 MG Tab PO SCH (10:07)
[2017-11-07] MEDS: Sucralfate 1 GM Tab PO SCH ×4 (10:07→20:28)
[2017-11-07] MEDS: Acetaminophen/HYDROcodone 325-5 MG Tab PO SCH ×3 (10:08→20:27)
[2017-11-07] MEDS: Nicotine 21 MG/24 Hr Patch TRDERM SCH (10:08)
[2017-11-07] MEDS: LORazepam 1 MG Tab PO SCH ×2 (10:09→20:29)
[2017-11-07] MEDS: Sodium Chloride 0.9% 1,000 ML IV SCH (12:40)
[2017-11-07] MEDS: ERGOCALCIFEROL 2000 UNIT PO SCH (13:10)
[2017-11-07] MEDS ORDERED: Magnesium Hydroxide 400 MG/5 ML Susp 30 ML Cup PO ONE (13:36)
--- NOTE | 2017-11-07 13:50 | PCM.PN ---
- General Info Date of Service: 11/07/17 Functional Status: Reports: Pain Controlled, Tolerating Diet, Ambulating, Urinating - Review of Systems General: Reports: No Symptoms HEENT: Reports: No Symptoms Pulmonary: Reports: No Symptoms Cardiovascular: Reports: No Symptoms Gastrointestinal: Reports: No Symptoms Genitourinary: Reports: No Symptoms Musculoskeletal: Reports: No Symptoms Skin: Reports: No Symptoms Neurological: Reports: No Symptoms Psychiatric: Reports: No Symptoms - Patient Data Vitals - Most Recent: Last Vital Signs Temp 36.3 C 11/07/17 11:31 Pulse 84 11/07/17 11:31 Resp 18 11/07/17 11:31 BP 103/65 11/07/17 11:31 Pulse Ox 93 L 11/07/17 11:31 Weight - Most Recent: 54.749 kg I&O - Last 24 Hours: Intake & Output 11/06/17 11/07/17 11/07/17 22:59 06:59 14:59 Intake Total 1116 900 120 Output Total 1250 1525 Balance -134 -625 120 Lab Results Last 24 Hours: Laboratory Results - last 24 hr 11/07/17 11/07/17 11/07/17 Range/Units 05:48 05:48 05:48 WBC 7.64 (3.98-10.04) K/mm3 RBC 4.10 (3.98-5.22) M/mm3 Hgb 12.9 (11.2-15.7) gm/L Hct 38.8 (34.1-44.9) % MCV 94.6 (79.4-94.8) fl MCH 31.5 (25.6-32.2) pg MCHC 33.2 (32.2-35.5) g/dl RDW Std Deviation 45.6 (36.4-46.3) fL Plt Count 234 (182-369) K/mm3 MPV 10.1 (9.4-12.3) fl Neut % (Auto) 59.5 (34.0-71.1) % Lymph % (Auto) 25.4 (19.3-51.7) % [place] % (Auto) 8.1 (4.7-12.5) % Eos % (Auto) 6.0 H (0.7-5.8) Baso % (Auto) 0.9 (0.1-1.2) % Neut # (Auto) 4.54 (1.56-6.13) K/mm3 Lymph # (Auto) 1.94 (1.18-3.74) K/mm3 [place] # (Auto) 0.62 H (0.24-0.36) K/mm3 Eos # (Auto) 0.46 H (0.04-0.36) K/mm3 Baso # (Auto) 0.07 (0.01-0.08) K/mm3 Sodium 140 (136-145) mEq/L Potassium 4.0 (3.5-5.1) mEq/L Chloride 106 (98-107) mEq/L Carbon Dioxide 27 (21-32) mEq/L Anion Gap 11.0 (5-15) BUN 15 (7-18) mg/dL Creatinine 0.7 (0.55-1.02) mg/dL Est Cr Clr Drug Dosing 61.68 mL/min Estimated GFR (MDRD) > 60 (>60) mL/min BUN/Creatinine Ratio 21.4 H (14-18) Glucose 87 (80-115) mg/dL Calcium 9.1 (8.5-10.1) mg/dL Magnesium 2.0 (1.8-2.4) mg/dl C-Reactive Protein < 0.2 (<1.0) mg/dL Med Orders - Current: Current Medications Acetaminophen (Tylenol) 650 mg PO Q4H PRN PRN Reason: Pain (Mild 1-3)/fever Hydrocodone Bitart/Acetaminophen ([place] 325-5 Mg) 1 tab PO Q4H PRN PRN Reason: Pain (moderate 4-6) Hydrocodone Bitart/Acetaminophen ([place] 325-5 Mg) 1.5 tab PO TID [facility] Last Admin: 11/07/17 10:08 Dose: 1.5 tab Albuterol/Ipratropium (Duoneb 3.0-0.5 Mg/3 Ml) 3 ml NEB Q4H PRN PRN Reason: Shortness Of Breath/wheezing Aspirin (Aspirin) 162 mg PO DAILY [facility] Last Admin: 11/07/17 10:06 Dose: 162 mg Bisacodyl (Dulcolax) 5 mg PO DAILY PRN PRN Reason: Constipation Calcium Carbonate/Glycine (Calcium Carbonate) 600 mg PO DAILY [facility] Last Admin: 11/07/17 10:07 Dose: 600 mg Citalopram Hydrobromide (Celexa) 10 mg PO DAILY [facility] Last Admin: 11/07/17 10:06 Dose: 10 mg Docusate Sodium (Colace) 100 mg PO BID PRN PRN Reason: Constipation Last Admin: 11/06/17 17:01 Dose: 100 mg Fish Oil (Fish Oil) 1 gm PO DAILY [facility] Last Admin: 11/07/17 10:07 Dose: 1 gm Hydralazine HCl (Apresoline) 20 mg IVPUSH Q4H PRN PRN Reason: Hypertension Hydromorphone HCl (Dilaudid) 0.25 mg IVPUSH Q2H PRN PRN Reason: Pain (severe 7-10) Promethazine HCl 12.5 mg/ (Sodium Chloride) 50.5 mls @ 100 mls/hr IV Q6H PRN PRN Reason: Nausea/Vomiting Sodium Chloride (Normal Saline) 1,000 mls @ 50 mls/hr IV ASDIRECTED [facility] Last Admin: 11/07/17 12:40 Dose: 50 mls/hr Levothyroxine Sodium (Levothyroxine) 125 mcg PO DAILY [facility] Last Admin: 11/07/17 10:07 Dose: 125 mcg Loratadine (Claritin) 10 mg PO BID [facility] Last Admin: 11/07/17 10:06 Dose: 10 mg Lorazepam (Ativan) 0.25 mg IV Q6H PRN PRN Reason: Anxiety Lorazepam (Ativan) 1 mg PO BID [facility] Last Admin: 11/07/17 10:09 Dose: 1 mg Metoprolol Tartrate (Lopressor) 5 mg IVPUSH Q4H PRN PRN Reason: Tachycardia Miscellaneous Information (Remove Patch) 0 ea TRDERM DAILY [facility] Last Admin: 11/07/17 10:10 Dose: 1 ea Mometasone Furoate (Asmanex Hfa 100mcg) 0 gm INH BID [facility] Last Admin: 11/07/17 09:47 Dose: 1 puff Nicotine (Habitrol) 21 mg TRDERM DAILY [facility] Last Admin: 11/07/17 10:08 Dose: 21 mg Ondansetron HCl (Zofran) 4 mg IV Q4H PRN PRN Reason: Nausea/Vomiting Pantoprazole Sodium (Protonix) 40 mg PO BID [facility] Last Admin: 11/07/17 10:06 Dose: 40 mg Ergocalciferol ( Vitamin D2) [Vitamin D2] 2,000 Unit 0 each PO DAILY [facility] Last Admin: 11/07/17 13:10 Dose: Not Given Leflunomide 20 Mg 0 each PO DAILY [facility] Last Admin: 11/07/17 13:10 Dose: Not Given Potassium Gluconate (595 Mg) 0 each PO DAILY [facility] Last Admin: 11/07/17 13:10 Dose: Not Given Ubidecarenone 100 Mg 0 each PO DAILY [facility] Last Admin: 11/07/17 13:10 Dose: Not Given Polyethylene Glycol (Miralax) 17 gm PO DAILY PRN PRN Reason: Constipation Pseudoephedrine HCl (Sudogest) 120 mg PO BID [facility] Last Admin: 11/07/17 10:05 Dose: 120 mg Saccharomyces Boulardii (Florastor) 250 mg PO DAILY [facility] Last Admin: 11/07/17 10:05 Dose: 250 mg Senna/Docusate Sodium (Senna Plus) 1 tab PO BID PRN PRN Reason: Constipation Simvastatin (Zocor) 10 mg PO DAILY [facility] Last Admin: 11/07/17 10:07 Dose: 10 mg Sucralfate (Carafate) 1 gm PO QID [facility] Last Admin: 11/07/17 10:07 Dose: 1 gm Sulindac (Clinoril) 150 mg PO BID [facility] Last Admin: 11/07/17 10:08 Dose: 150 mg Temazepam (Restoril) 7.5 mg PO BEDTIME PRN PRN Reason: Sleep Tiotropium [place] (Spiriva Handihaler) 18 mcg INH DAILY [facility] Last Admin: 11/07/17 09:47 Dose: 1 cap Trazodone HCl (Trazodone) 50 mg PO BEDTIME [facility] Last Admin: 11/06/17 20:44 Dose: 50 mg Triamcinolone Acetonide (Triamcinolone Acetonide 0.1% Crm) 0 gm TOP DAILY PRN PRN Reason: Itching Discontinued Medications Aspirin (Aspirin) 324 mg PO ONETIME ONE Stop: 11/04/17 10:15 Last Admin: 11/04/17 10:47 Dose: 324 mg Citalopram Hydrobromide (Celexa) 60 mg PO DAILY [facility] Hydromorphone HCl (Dilaudid) 0.5 mg IVPUSH ONETIME ONE Stop: 11/04/17 10:16 Last Admin: 11/04/17 10:45 Dose: 0.5 mg Dextrose/Sodium Chloride (Dextrose 5%-Normal Saline) 1,000 mls @ 125 mls/hr IV ASDIRECTED [facility] Last Admin: 11/04/17 10:43 Dose: 125 mls/hr Influenza Virus Vaccine (Pharmacy To Dose - Influenza Vaccine) 1 each IM ONETIME ONE Stop: 11/06/17 12:04 Influenza Virus Vaccine (Fluzone High-Dose ) 180 mcg IM .ONCE ONE Stop: 11/06/17 12:16 Magnesium Hydroxide (Milk Of Magnesia) 30 ml PO ONETIME ONE Stop: 11/07/17 13:37 Magnesium Sulfate (Pharmacy To Dose - Magnesium Replacement) 1 dose .XX ASDIRECTED [facility] Midazolam HCl (Versed 1 Mg/Ml) 2 mg IVPUSH ONETIME ONE Stop: 11/04/17 11:49 Last Admin: 11/04/17 12:04 Dose: 2 mg Ondansetron HCl (Zofran) 4 mg IVPUSH ONETIME ONE Stop: 11/04/17 10:17 Last Admin: 11/04/17 10:43 Dose: 4 mg Potassium Chloride (Pharmacy To Dose - Potassium Replacement) 1 dose .XX ASDIRECTED [facility] Trazodone HCl (Trazodone) 150 - 300 mg PO BEDTIME [facility] Last Admin: 11/04/17 21:06 Dose: 150 mg - Exam Quality Assessment: DVT Prophylaxis General: Alert, Oriented, Cooperative, No Acute Distress HEENT: Pupils Equal, Pupils Reactive, EOMI Neck: Supple, Trachea Midline Lungs: Normal Respiratory Effort Cardiovascular: Regular Rate, Regular Rhythm GI/Abdominal Exam: Normal Bowel Sounds, Soft, Non-Tender, No Organomegaly, No Distention (Female) Exam: Deferred Back Exam: Normal Inspection Extremities: Normal Inspection Skin: Warm Neurological: No New Focal Deficit Psy/Mental Status: Alert, Normal Affect, Normal Mood - Problem List Review Problem List Initiated/Reviewed/Updated: Yes - Plan Plan:: I/P: Acute: CVA -Last seen well 11/03/17 around 1145 - noted difficulty communicating -Stopped taking all medicines about a year ago per and her -Risk factors: Smoker, hx/o hld, avoids medical provider -VSS -CT (11/04/17) notes area in left parietal and occipital cortex of diminished blood flow -Old infarct within left anterior frontal region -Diminished density wihtin periventricular white matter compatable with small vessel ischemic demyelenation changes -Atherosclerotic desiccation within carotid siphon and vertebral vessesl -324mg ASA given in ED - switch to 162mg daily -Carotid ultrasound (11/04/17) - moderate amount of plaque -Stenosis within 1-49% bilaterally -MRI (11/04/17) - Fairly acute but irreversible infarcts in left temporoparietal region in medial left occipital lobe -Low signal findings in temoporal parietal infarct compatable with microscopic hemorrhages -Small vessel ischemic demyelination changes noted -Old infarcts within both frontal lobes seen -Echo obtained -EF by Herrera's MOD the proximal was approximately 62%. -Impaired relaxation (grade 1) pattern of LV diastolic filling. -Right ventricle size is normal. Right ventricular systolic function is normal. -Left atrium is normal in size. -Right atrium is normal size. -Aortic valve is tricuspid. -Moderate aortic valve sclerosis without stenosis. -Mitral valve is degenerative in appearance. -Mitral leaflet mobility is normal. Mild MV regurgitation. -Tricuspid valve normal in structure. Trace TV regurgitation. -Pulmonic valve normal structure. Pulmonary artery is of normal size margin. -Lipid panel - Triglycerides 147, cholesterol 24, LDL 131, HDL 43 -Restart statin -Will need f/u with PCP to possibly adjust dosage -BID neuro checks -CHECKERER HAND evaluation - No swallowing issues, cognitive eval and speech eval ordered. 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 Code status: Full code; PCP Lisette Reid in [place], although she has not seen her in some time. LOS>96 hours for CVA recovery and placement
[2017-11-07] MEDS: traZODone 50 MG Tab PO SCH (20:28)
[2017-11-08] MEDS: Tiotropium Inhaler 18 MCG Inhalation Powder Cap Kit of 5 INH SCH (08:47)
[2017-11-08] MEDS: Mometasone Furoate HFA 100mcg/Puff 13 GM Inhaler INH SCH ×2 (08:47→20:18)
[2017-11-08] MEDS: LORazepam 1 MG Tab PO SCH ×2 (09:02→22:04)
[2017-11-08] MEDS: Pseudoephedrine 30 MG Tab PO SCH ×2 (09:03→22:05)
[2017-11-08] MEDS: Citalopram 10 MG Tab PO SCH (09:04)
[2017-11-08] MEDS: Pantoprazole 40 MG Tab.CR PO SCH ×2 (09:04→22:06)
[2017-11-08] MEDS: Calcium Carbonate 600 MG Tab PO SCH (09:04)
[2017-11-08] MEDS: Loratadine 10 MG Tab PO SCH ×2 (09:04→22:06)
[2017-11-08] MEDS: Fish Oil/Omega-3 Fatty Acids 1 Gm Cap PO SCH (09:04)
[2017-11-08] MEDS: Aspirin 81 MG Tab.Chew PO SCH (09:04)
[2017-11-08] MEDS: Levothyroxine 125 MCG Tab PO SCH (09:05)
[2017-11-08] MEDS: Nicotine 21 MG/24 Hr Patch TRDERM SCH (09:05)
[2017-11-08] MEDS: Simvastatin 10 MG Tab PO SCH (09:05)
[2017-11-08] MEDS: Sucralfate 1 GM Tab PO SCH ×4 (09:05→22:06)
[2017-11-08] MEDS: Saccharomyces Boulardii (Probiotic) 250 MG Cap PO SCH (09:06)
[2017-11-08] MEDS: Acetaminophen/HYDROcodone 325-5 MG Tab PO SCH ×3 (09:07→22:06)
--- NOTE | 2017-11-08 09:13 | PCM.DCSUM1 ---
Discharge Summary - Hospital Course HPI Initial Comments: Chelsea Summers is a 67 yo female who presented to our ED today from [place] via ambulance. Stroke alert was called in the ED. It is reported that yesterday morning between 11:30 and 11:45 she developed sudden troubles speaking and a headache. Initially, she seemed very hard of hearing or having difficulty understanding speech. Her speech was initially nearly normal, however over time she became more garbled and obvious expressive aphasia was noted. No signs of neurologic deficit. Cranial nerves II through XII were intact. Tongue was mildly dry. Blood pressure was stable. No previous history of CVA. Her did realize that she had not been taking any of her medications for over a year which included her thyroid replacement hormone. She is a history of major depression and her has not been able to get her to go the doctor. She has complained of only a headache in the ED. Denies nausea or vomiting. Unsure when she last ate or had anything to drink. She reportedly does not have a drug or alcohol problem. Her speech has improved somewhat today. In the ER temp was 37.1 Celsius. Pulse 85. Respirations 16. BP 127/83 pulse ox 98%. Labs are obtained: The CBC is normal at 9.5. Hemoglobin normal at 14.5. Hematocrit 43.3. She is normocytic. Platelet count is good at 240,000. Neutrophils are elevated at 73%. There is 1% band neutrophils noted. ESR 16. PT is 10.6. INR 0.97. APTT 28. Sodium was good at 141. Potassium 4.1. Chloride 106. Carbon dioxide 22. Anion gap was slightly high at 17.1. BUN is elevated at 21. Creatinine is 0.7. EGFR is greater than 60. Glucose is 105. Calcium 9.5. Total bilirubin 0.3. Liver enzymes looked good with AST at 24, ALT at 42, alkaline phosphatase at 75. Creatinine kinase is 50. CRP is less than 0.2. Total protein is 7.2. Albumin is 3.9. TSH is very high at 10.843. She started on D5 normal saline, given aspirin 324 mg, 4 mg of Zofran, and 0.5 mg of Dilaudid for pain. He is not having any noted weakness or difficulty walking, however she does have difficulty speaking and appears to have cognition difficulties. CT scan of the head was obtained and did not reveal any signs of intracranial bleeding or mass effect, however, there is an area in the left parietal occipital cortex of diminished blood flow suggesting a recent infarct. There is also old infarct noted within the anterior left frontal region. There are diminished density noted within portions of periventricular white matter compatible with small vessel ischemic demyelination changes in the basal ganglia. An MRI will be attempted on the floor. She carries a history of asthma, COPD, depression, chronic insomnia, hypothyroidism. She is a current daily smoker. She is subsequently admitted to the medical floor. She is a full code. She has not seen the doctor in some time, however her states her PCP is Lisette alvarez [place]. - Discharge Data Discharge Date: 11/08/17 (Admit date: 11/04/17) Discharge Disposition: DC/Tfer to SNF 03 Condition: Good - Discharge Diagnosis/Problem(s) (1) Cerebrovascular accident (CVA) SNOMED Code(s): 739841379 ICD Code: I63.9 - CEREBRAL INFARCTION, UNSPECIFIED Status: Acute Priority : High Current Visit: Yes Qualifiers: CVA mechanism: unspecified Qualified Code(s): I63.9 - Cerebral infarction, unspecified (2) Asthma SNOMED Code(s): 801137011 ICD Code: J45.909 - UNSPECIFIED ASTHMA, UNCOMPLICATED Status: Chronic Priority: Low Current Visit: No Qualifiers: Asthma severity: unspecified severity Asthma persistence: unspecified Asthma complication type: unspecified Qualified Code(s): J45.909 - Unspecified asthma, uncomplicated (3) COPD (chronic obstructive pulmonary disease) SNOMED Code(s): 36782939 ICD Code: J44.9 - CHRONIC OBSTRUCTIVE PULMONARY DISEASE, UNSPECIFIED Status : Chronic Priority: Low Current Visit: No Qualifiers: COPD type: unspecified COPD Qualified Code(s): J44.9 - Chronic obstructive pulmonary disease, unspecified (4) Depression SNOMED Code(s): 18052443 ICD Code: F32.9 - MAJOR DEPRESSIVE DISORDER, SINGLE EPISODE, UNSPECIFIED Status: Chronic Priority: Medium Current Visit: Yes Qualifiers: Depression Type: other depression Qualified Code(s): F32.89 - Other specified depressive episodes (5) Insomnia SNOMED Code(s): 087684846 ICD Code: G47.00 - INSOMNIA, UNSPECIFIED Status: Chronic Priority: Low Current Visit: No Qualifiers: Insomnia type: unspecified Qualified Code(s): G47.00 - Insomnia, unspecified (6) Hypothyroidism SNOMED Code(s): 63704215 ICD Code: E03.9 - HYPOTHYROIDISM, UNSPECIFIED Status: Chronic Priority: Medium Current Visit: Yes Qualifiers: Hypothyroidism type: unspecified Qualified Code(s): E03.9 - Hypothyroidism , unspecified (7) Medical non-compliance SNOMED Code(s): 105702285 ICD Code: Z91.19 - PATIENT'S NONCOMPLIANCE W OTH MEDICAL TREATMENT AND REGIMEN Status: Acute Priority: High Current Visit: Yes - Patient Summary/Data Consults: Consultations 11/04/17 12:36 OT Evaluation and Treatment [CONS] Routine PT Evaluation and Treatment [CONS] Routine PATIENT OBSERVATION ASSISTANT Evaluation and Treatment [CONS] Routine 11/05/17 02:46 Consult to Physician [CONS] Routine 11/05/17 11:43 Consult to Speech Language Pathology [PATIENT OBSERVATION ASSISTANT Evaluation and Treatment] [CONS] Routine Labs Pending at D/C: None Recommended Follow-up Testing/Procedures: Follow-up with PCP in 7-10 days. Was re-started on all medications as she has not been taking them for over a year. Will need lab monitoring, especially since TSH was very high. Speech Therapy: SNF with PATIENT OBSERVATION ASSISTANT for Wernicke's Aphasia. No PATIENT OBSERVATION ASSISTANT Tx for dysphagia indicated at this time. Recommend oral intake of thin liquids and NDD4 (regular solids); medications whole with thin liquids. Hospital Course: I/P: Acute: CVA -Last seen well 11/03/17 around 1145 - noted difficulty communicating -Stopped taking all medicines about a year ago per and her -Risk factors: Smoker, hx/o hld, avoids medical provider -VSS -CT (11/04/17) notes area in left parietal and occipital cortex of diminished blood flow -Old infarct within left anterior frontal region -Diminished density wihtin periventricular white matter compatable with small vessel ischemic demyelenation changes -Atherosclerotic desiccation within carotid siphon and vertebral vessesl -324mg ASA given in ED - switch to 162mg daily -Carotid ultrasound (11/04/17) - moderate amount of plaque -Stenosis within 1-49% bilaterally -MRI (11/04/17) - Fairly acute but irreversible infarcts in left temporoparietal region in medial left occipital lobe -Low signal findings in temoporal parietal infarct compatable with microscopic hemorrhages -Small vessel ischemic demyelination changes noted -Old infarcts within both frontal lobes seen -Echo obtained -EF by Herrera's MOD the proximal was approximately 62%. -Impaired relaxation (grade 1) pattern of LV diastolic filling. -Right ventricle size is normal. Right ventricular systolic function is normal. -Left atrium is normal in size. -Right atrium is normal size. -Aortic valve is tricuspid. -Moderate aortic valve sclerosis without stenosis. -Mitral valve is degenerative in appearance. -Mitral leaflet mobility is normal. Mild MV regurgitation. -Tricuspid valve normal in structure. Trace TV regurgitation. -Pulmonic valve normal structure. Pulmonary artery is of normal size margin. -Lipid panel - Triglycerides 147, cholesterol 24, LDL 131, HDL 43 -Restart statin -Will need f/u with PCP to possibly adjust dosage -BID neuro checks -PATIENT OBSERVATION ASSISTANT evaluation - No swallowing issues, cognitive eval and speech eval ordered. Hypothyroidism -TSH 10.843 -Free T4 0.87 -Resume home Synthroid -Will need f/u with PCP to re-check in 4-6 weeks Chronic: Asthma - home meds COPD - home meds Depression - consider zachary consult Insomnia tobacco use disorder - nicotine patch, retirement plan counselor on smoking cessation Plan: Admit to medical floor on telemetry CM/SW for discharge planning PT/OT Other orders as indicated above Routine AM labs Home medications as ordered DVT/PE prophylaxis: SCDs Discharge 11/08/17 Code status: Full code; PCP Lisette Reid in [place], although she has not seen her in some time. LOS>96 hours for CVA recovery and placement Overall Chelsea did quite well and continued to improve. She had a Dr. Ruelas consult and was started on Celexa. As noted her TSH was very high. It was discovered she has not been taking her home medications for over a year. All medications were restarted. Her mood appears to have improved and she is much more social. She does still have some troubles with word placement. She will place for rehabilitation today. - Patient Instructions Diet: Heart Healthy Diet Activity: As Tolerated Driving: Do Not Drive Showering/Bathing: May Shower Notify Provider of: Fever, Increased Pain, Nausea and/or Vomiting - Discharge Plan Prescriptions/Med Rec: Aspirin 162 mg PO DAILY #30 tab.chew Nicotine [Nicotine Patch] 1 each TD DAILY #14 patch.td24 Home Medications: Home Meds Albuterol Sulfate [Proair Hfa] 1 - 2 puff INH Q4H PRN 11/04/17 [History] Aspirin 81 mg PO DAILY 11/04/17 [History] Calcium Carbonate [Calcium] 500 mg PO DAILY 11/04/17 [History] Citalopram Hydrobromide [Celexa] 60 mg PO DAILY 11/04/17 [History] Ergocalciferol (Vitamin D2) [Vitamin D2] 2,000 unit PO DAILY 11/04/17 [History] Fluticasone Propionate [Flovent HFA 110 MCG] 1 puff INH BID 11/04/17 [History] Hydrocodone/Acetaminophen [Hydrocodon-Acetaminoph 7.5-325] 1 tab PO TID [History] LORazepam 1 mg PO BID 11/04/17 [History] Lactobacillus Rhamnosus GG [Culturelle] 1 cap PO DAILY 11/04/17 [History] Leflunomide 20 mg PO DAILY 11/04/17 [History] Levothyroxine Sodium [Synthroid] 125 mcg PO DAILY 11/04/17 [History] Loratadine/Pseudoephedrine [Loratadine-D 12HR] 1 tab PO BID 11/04/17 [History] Nabumetone 1,000 mg PO DAILY 11/04/17 [History] [place]-3/DHA/Epa/Fish Oil [[place]-3 Fish Oil 1,200 MG Sfgl] 1,200 mg PO DAILY [History] Omeprazole 40 mg PO BID 11/04/17 [History] Potassium Gluconate 595 mg PO DAILY 11/04/17 [History] Sucralfate 1 gm PO QID 11/04/17 [History] Tiotropium [Spiriva HandiHaler] 18 mcg INH DAILY 11/04/17 [History] Triamcinolone Acetonide [Triamcinolone Acetonide 0.1% Crm] 1 appful TOP DAILY PRN 11/04/17 [History] Ubidecarenone [Co Q-10] 100 mg PO DAILY 11/04/17 [History] atorvaSTATin [Lipitor] 10 mg PO DAILY 11/04/17 [History] traZODone HCl [Trazodone HCl] 1 - 2 tab PO BEDTIME 11/04/17 [History] Aspirin 162 mg PO DAILY #30 tab.chew 11/08/17 [Rx] Nicotine [Nicotine Patch] 1 each TD DAILY #14 patch.td24 11/08/17 [Rx] Patient Handouts: Smoking Cessation, Tips for Success, Iyoy-co-Tbbh, Stroke Prevention, Mrti-ln-Fsvt, Ischemic Stroke Treated Without Warfarin, Uwor-ya-Kaud Forms: ED Department Discharge Referrals: Lisette Reid PLASTIC TOOL MAKER [Primary Care Provider] - - Discharge Summary/Plan Comment DC Time >30 min.: Yes (45 minutes ) - General Info Date of Service: 11/08/17 Admission Dx/Problem (Free Text: Admission Diagnosis/Problem Admission Diagnosis/Problem CVA, Cerebrovascular accident Functional Status: Reports: Pain Controlled, Tolerating Diet, Ambulating, Urinating. Denies: New Symptoms - Review of Systems General: Reports: No Symptoms HEENT: Reports: No Symptoms Pulmonary: Reports: No Symptoms Cardiovascular: Reports: No Symptoms Gastrointestinal: Reports: No Symptoms Genitourinary: Reports: No Symptoms Musculoskeletal: Reports: No Symptoms Skin: Reports: No Symptoms Neurological: Reports: No Symptoms Psychiatric: Reports: No Symptoms - Patient Data Vitals - Most Recent: Last Vital Signs Temp 98.1 F 11/08/17 04:00 Pulse 83 11/08/17 04:00 Resp 15 11/08/17 04:00 BP 118/82 11/08/17 04:00 Pulse Ox 92 L 11/08/17 08:47 Weight - Most Recent: 120 lb 11.2 oz I&O - Last 24 hours: Intake & Output 11/07/17 11/08/17 11/08/17 22:59 06:59 14:59 Intake Total 1575 750 Output Total 1700 Balance -125 750 Lab Results - Last 24 hrs: Laboratory Results - last 24 hr 11/08/17 Range/Units 06:30 Sodium 142 (136-145) mEq/L Potassium 4.1 (3.5-5.1) mEq/L Chloride 106 (98-107) mEq/L Carbon Dioxide 30 (21-32) mEq/L Anion Gap 10.1 (5-15) BUN 15 (7-18) mg/dL Creatinine 0.9 (0.55-1.02) mg/dL Est Cr Clr Drug Dosing 47.97 mL/min Estimated GFR (MDRD) > 60 (>60) mL/min BUN/Creatinine Ratio 16.7 (14-18) Glucose 88 (80-115) mg/dL Calcium 9.0 (8.5-10.1) mg/dL Magnesium 2.3 (1.8-2.4) mg/dl Med Orders - Current: Current Medications Acetaminophen (Tylenol) 650 mg PO Q4H PRN PRN Reason: Pain (Mild 1-3)/fever Hydrocodone Bitart/Acetaminophen ([place] 325-5 Mg) 1 tab PO Q4H PRN PRN Reason: Pain (moderate 4-6) Hydrocodone Bitart/Acetaminophen ([place] 325-5 Mg) 1.5 tab PO TID [facility] Last Admin: 11/08/17 09:07 Dose: Not Given Albuterol/Ipratropium (Duoneb 3.0-0.5 Mg/3 Ml) 3 ml NEB Q4H PRN PRN Reason: Shortness Of Breath/wheezing Aspirin (Aspirin) 162 mg PO DAILY [facility] Last Admin: 11/08/17 09:04 Dose: 162 mg Bisacodyl (Dulcolax) 5 mg PO DAILY PRN PRN Reason: Constipation Last Admin: 11/07/17 20:17 Dose: 5 mg Calcium Carbonate/Glycine (Calcium Carbonate) 600 mg PO DAILY [facility] Last Admin: 11/08/17 09:04 Dose: 600 mg Citalopram Hydrobromide (Celexa) 10 mg PO DAILY [facility] Last Admin: 11/08/17 09:04 Dose: 10 mg Docusate Sodium (Colace) 100 mg PO BID PRN PRN Reason: Constipation Last Admin: 11/06/17 17:01 Dose: 100 mg Fish Oil (Fish Oil) 1 gm PO DAILY [facility] Last Admin: 11/08/17 09:04 Dose: 1 gm Hydralazine HCl (Apresoline) 20 mg IVPUSH Q4H PRN PRN Reason: Hypertension Hydromorphone HCl (Dilaudid) 0.25 mg IVPUSH Q2H PRN PRN Reason: Pain (severe 7-10) Promethazine HCl 12.5 mg/ (Sodium Chloride) 50.5 mls @ 100 mls/hr IV Q6H PRN PRN Reason: Nausea/Vomiting Sodium Chloride (Normal Saline) 1,000 mls @ 50 mls/hr IV ASDIRECTED [facility] Last Admin: 11/07/17 12:40 Dose: 50 mls/hr Levothyroxine Sodium (Levothyroxine) 125 mcg PO DAILY [facility] Last Admin: 11/08/17 09:05 Dose: 125 mcg Loratadine (Claritin) 10 mg PO BID [facility] Last Admin: 11/08/17 09:04 Dose: 10 mg Lorazepam (Ativan) 0.25 mg IV Q6H PRN PRN Reason: Anxiety Lorazepam (Ativan) 1 mg PO BID [facility] Last Admin: 11/08/17 09:02 Dose: 1 mg Metoprolol Tartrate (Lopressor) 5 mg IVPUSH Q4H PRN PRN Reason: Tachycardia Miscellaneous Information (Remove Patch) 0 ea TRDERM DAILY [facility] Last Admin: 11/07/17 10:10 Dose: 1 ea Mometasone Furoate (Asmanex Hfa 100mcg) 0 gm INH BID [facility] Last Admin: 11/08/17 08:47 Dose: 1 puff Nicotine (Habitrol) 21 mg TRDERM DAILY [facility] Last Admin: 11/08/17 09:05 Dose: 21 mg Ondansetron HCl (Zofran) 4 mg IV Q4H PRN PRN Reason: Nausea/Vomiting Pantoprazole Sodium (Protonix) 40 mg PO BID [facility] Last Admin: 11/08/17 09:04 Dose: 40 mg Ergocalciferol ( Vitamin D2) [Vitamin D2] 2,000 Unit 0 each PO DAILY [facility] Last Admin: 11/07/17 13:10 Dose: Not Given Leflunomide 20 Mg 0 each PO DAILY [facility] Last Admin: 11/07/17 13:10 Dose: Not Given Potassium Gluconate (595 Mg) 0 each PO DAILY [facility] Last Admin: 11/07/17 13:10 Dose: Not Given Ubidecarenone 100 Mg 0 each PO DAILY [facility] Last Admin: 11/07/17 13:10 Dose: Not Given Polyethylene Glycol (Miralax) 17 gm PO DAILY PRN PRN Reason: Constipation Pseudoephedrine HCl (Sudogest) 120 mg PO BID [facility] Last Admin: 11/08/17 09:03 Dose: 120 mg Saccharomyces Boulardii (Florastor) 250 mg PO DAILY [facility] Last Admin: 11/08/17 09:06 Dose: 250 mg Senna/Docusate Sodium (Senna Plus) 1 tab PO BID PRN PRN Reason: Constipation Last Admin: 11/07/17 20:17 Dose: 1 tab Simvastatin (Zocor) 10 mg PO DAILY [facility] Last Admin: 11/08/17 09:05 Dose: 10 mg Sucralfate (Carafate) 1 gm PO QID [facility] Last Admin: 11/08/17 09:05 Dose: 1 gm Sulindac (Clinoril) 150 mg PO BID [facility] Last Admin: 11/08/17 09:06 Dose: 150 mg Temazepam (Restoril) 7.5 mg PO BEDTIME PRN PRN Reason: Sleep Tiotropium [place] (Spiriva Handihaler) 18 mcg INH DAILY [facility] Last Admin: 11/08/17 08:47 Dose: 1 cap Trazodone HCl (Trazodone) 50 mg PO BEDTIME [facility] Last Admin: 11/07/17 20:28 Dose: 50 mg Triamcinolone Acetonide (Triamcinolone Acetonide 0.1% Crm) 0 gm TOP DAILY PRN PRN Reason: Itching Discontinued Medications Aspirin (Aspirin) 324 mg PO ONETIME ONE Stop: 11/04/17 10:15 Last Admin: 11/04/17 10:47 Dose: 324 mg Citalopram Hydrobromide (Celexa) 60 mg PO DAILY [facility] Hydromorphone HCl (Dilaudid) 0.5 mg IVPUSH ONETIME ONE Stop: 11/04/17 10:16 Last Admin: 11/04/17 10:45 Dose: 0.5 mg Dextrose/Sodium Chloride (Dextrose 5%-Normal Saline) 1,000 mls @ 125 mls/hr IV ASDIRECTED [facility] Last Admin: 11/04/17 10:43 Dose: 125 mls/hr Influenza Virus Vaccine (Pharmacy To Dose - Influenza Vaccine) 1 each IM ONETIME ONE Stop: 11/06/17 12:04 Influenza Virus Vaccine (Fluzone High-Dose ) 180 mcg IM .ONCE ONE Stop: 11/06/17 12:16 Magnesium Hydroxide (Milk Of Magnesia) 30 ml PO ONETIME ONE Stop: 11/07/17 13:37 Last Admin: 11/07/17 14:20 Dose: 30 ml Magnesium Sulfate (Pharmacy To Dose - Magnesium Replacement) 1 dose .XX ASDIRECTED [facility] Midazolam HCl (Versed 1 Mg/Ml) 2 mg IVPUSH ONETIME ONE Stop: 11/04/17 11:49 Last Admin: 11/04/17 12:04 Dose: 2 mg Ondansetron HCl (Zofran) 4 mg IVPUSH ONETIME ONE Stop: 11/04/17 10:17 Last Admin: 11/04/17 10:43 Dose: 4 mg Potassium Chloride (Pharmacy To Dose - Potassium Replacement) 1 dose .XX ASDIRECTED [facility] Trazodone HCl (Trazodone) 150 - 300 mg PO BEDTIME [facility] Last Admin: 11/04/17 21:06 Dose: 150 mg - Exam Quality Assessment: Reports: DVT Prophylaxis General: Reports: Alert, Oriented, Cooperative, No Acute Distress HEENT: Reports: Pupils Equal, Pupils Reactive, EOMI, Mucous Membr. Moist/[place] Neck: Reports: Supple Lungs: Reports: Clear to Auscultation, Normal Respiratory Effort Cardiovascular: Reports: Regular Rate, Regular Rhythm GI/Abdominal Exam: Normal Bowel Sounds, Soft, Non-Tender, No Organomegaly, No Distention, No Abnormal Bruit, No Mass, Pelvis Stable (Female) Exam: Deferred Rectal (Female) Exam: Deferred Back Exam: Reports: Normal Inspection, Full Range of Motion Extremities: Normal Inspection, Normal Range of Motion, Non-Tender, No Pedal Edema, Normal Capillary Refill Skin: Reports: Warm, Dry, Intact Neurological: Reports: No New Focal Deficit, Normal Gait, Normal Tone, Strength Equal Bilateral, Reflexes Equal Bilateral, Sensation Intact, Cranial Nerves Intact. Denies: Normal Speech (She does still have some difficulty with word placement but overall can carry on a basic conversation. ) Psy/Mental Status: Reports: Alert, Normal Affect, Normal Mood *Q Meaningful Use (DIS) - VTE *Q VTE Criteria *Q: - Stroke *Q Stroke Criteria *Q: - AMI *Q AMI Criteria *Q:
[2017-11-08] MEDS: ERGOCALCIFEROL 2000 UNIT PO SCH (12:10)
--- NOTE | 2017-11-08 14:59 | PCM.SN ---
- Free Text/Narrative Note: In to see Chelsea this AM. She is doing very well. She is sitting up in bed and looks good. She caries on a good conversation with me and jokes around a bit. She is excited to be discharged. Her speech has greatly improved although she still has some deficit. PT/OT does not recommend further therapies. She is walking well. AIR TRAFFIC SUPERVISOR recommends further speech therapies which will be needed. I fully expect her to need less than 30 days of therapies. We have restarted her on on her prior medications with some adjustments. She will need 24/7 cares for what I suspect will be the next 30 days or less as well. She is medically stable and essentially just waiting placement. Labs look good. She will need follow-up with a PCP to look at future medication adjustments if necessary.
--- NOTE | 2017-11-08 15:34 | PCM.PN ---
- General Info Date of Service: 11/08/17 Admission Dx/Problem (Free Text): Admission Diagnosis/Problem Admission Diagnosis/Problem CVA, Cerebrovascular accident Subjective Update: In to see Chelsea today. She is sitting on the edge of bed. Her speech is greatly improved although she does have some deficit. She does communicate freely with me and we joke around a bit. We discussed her plan of care with discharge for rehabilitation stay. PT\OT has signed off on the patient as she is ambulating well. COVERAGE SPECIALIST is recommending continued speech therapies. She's had no concerns overnight. Overall she is doing quite well. She will be discharged this afternoon or tomorrow pending rehabilitation SNF placement. Functional Status: Reports: Pain Controlled, Tolerating Diet, Ambulating, Urinating. Denies: New Symptoms - Review of Systems General: Reports: No Symptoms HEENT: Reports: No Symptoms Pulmonary: Reports: No Symptoms Cardiovascular: Reports: No Symptoms Gastrointestinal: Reports: No Symptoms Genitourinary: Reports: No Symptoms Musculoskeletal: Reports: No Symptoms Skin: Reports: No Symptoms Neurological: Reports: Trouble Speaking, Change in Speech. Denies: Dizziness, Headache, Numbness, Tingling, Difficulty Walking, Weakness, Gait Disturbance Psychiatric: Reports: No Symptoms - Patient Data Vitals - Most Recent: Last Vital Signs Temp 98.1 F 11/08/17 08:00 Pulse 120 H 11/08/17 13:08 Resp 20 11/08/17 08:00 BP 111/75 11/08/17 13:08 Pulse Ox 90 L 11/08/17 13:08 Weight - Most Recent: 120 lb 11.2 oz I&O - Last 24 Hours: Intake & Output 11/08/17 11/08/17 11/08/17 06:59 14:59 22:59 Intake Total 750 300 Balance 750 300 Lab Results Last 24 Hours: Laboratory Results - last 24 hr 11/08/17 Range/Units 06:30 Sodium 142 (136-145) mEq/L Potassium 4.1 (3.5-5.1) mEq/L Chloride 106 (98-107) mEq/L Carbon Dioxide 30 (21-32) mEq/L Anion Gap 10.1 (5-15) BUN 15 (7-18) mg/dL Creatinine 0.9 (0.55-1.02) mg/dL Est Cr Clr Drug Dosing 47.97 mL/min Estimated GFR (MDRD) > 60 (>60) mL/min BUN/Creatinine Ratio 16.7 (14-18) Glucose 88 (80-115) mg/dL Calcium 9.0 (8.5-10.1) mg/dL Magnesium 2.3 (1.8-2.4) mg/dl Med Orders - Current: Current Medications Acetaminophen (Tylenol) 650 mg PO Q4H PRN PRN Reason: Pain (Mild 1-3)/fever Hydrocodone Bitart/Acetaminophen ([place] 325-5 Mg) 1 tab PO Q4H PRN PRN Reason: Pain (moderate 4-6) Hydrocodone Bitart/Acetaminophen ([place] 325-5 Mg) 1.5 tab PO TID [facility] Last Admin: 11/08/17 15:23 Dose: 1.5 tab Albuterol/Ipratropium (Duoneb 3.0-0.5 Mg/3 Ml) 3 ml NEB Q4H PRN PRN Reason: Shortness Of Breath/wheezing Aspirin (Aspirin) 162 mg PO DAILY [facility] Last Admin: 11/08/17 09:04 Dose: 162 mg Bisacodyl (Dulcolax) 5 mg PO DAILY PRN PRN Reason: Constipation Last Admin: 11/07/17 20:17 Dose: 5 mg Calcium Carbonate/Glycine (Calcium Carbonate) 600 mg PO DAILY [facility] Last Admin: 11/08/17 09:04 Dose: 600 mg Citalopram Hydrobromide (Celexa) 10 mg PO DAILY [facility] Last Admin: 11/08/17 09:04 Dose: 10 mg Docusate Sodium (Colace) 100 mg PO BID PRN PRN Reason: Constipation Last Admin: 11/06/17 17:01 Dose: 100 mg Fish Oil (Fish Oil) 1 gm PO DAILY [facility] Last Admin: 11/08/17 09:04 Dose: 1 gm Hydralazine HCl (Apresoline) 20 mg IVPUSH Q4H PRN PRN Reason: Hypertension Hydromorphone HCl (Dilaudid) 0.25 mg IVPUSH Q2H PRN PRN Reason: Pain (severe 7-10) Promethazine HCl 12.5 mg/ (Sodium Chloride) 50.5 mls @ 100 mls/hr IV Q6H PRN PRN Reason: Nausea/Vomiting Sodium Chloride (Normal Saline) 1,000 mls @ 50 mls/hr IV ASDIRECTED [facility] Last Admin: 11/07/17 12:40 Dose: 50 mls/hr Levothyroxine Sodium (Levothyroxine) 125 mcg PO DAILY [facility] Last Admin: 11/08/17 09:05 Dose: 125 mcg Loratadine (Claritin) 10 mg PO BID [facility] Last Admin: 11/08/17 09:04 Dose: 10 mg Lorazepam (Ativan) 0.25 mg IV Q6H PRN PRN Reason: Anxiety Lorazepam (Ativan) 1 mg PO BID [facility] Last Admin: 11/08/17 09:02 Dose: 1 mg Metoprolol Tartrate (Lopressor) 5 mg IVPUSH Q4H PRN PRN Reason: Tachycardia Miscellaneous Information (Remove Patch) 0 ea TRDERM DAILY [facility] Last Admin: 11/08/17 13:14 Dose: Not Given Mometasone Furoate (Asmanex Hfa 100mcg) 0 gm INH BID [facility] Last Admin: 11/08/17 08:47 Dose: 1 puff Nicotine (Habitrol) 21 mg TRDERM DAILY [facility] Last Admin: 11/08/17 09:05 Dose: 21 mg Ondansetron HCl (Zofran) 4 mg IV Q4H PRN PRN Reason: Nausea/Vomiting Pantoprazole Sodium (Protonix) 40 mg PO BID [facility] Last Admin: 11/08/17 09:04 Dose: 40 mg Ergocalciferol ( Vitamin D2) [Vitamin D2] 2,000 Unit 0 each PO DAILY [facility] Last Admin: 11/08/17 12:10 Dose: Not Given Leflunomide 20 Mg 0 each PO DAILY [facility] Last Admin: 11/08/17 12:10 Dose: Not Given Potassium Gluconate (595 Mg) 0 each PO DAILY [facility] Last Admin: 11/08/17 12:11 Dose: Not Given Ubidecarenone 100 Mg 0 each PO DAILY [facility] Last Admin: 11/08/17 12:11 Dose: Not Given Polyethylene Glycol (Miralax) 17 gm PO DAILY PRN PRN Reason: Constipation Pseudoephedrine HCl (Sudogest) 120 mg PO BID [facility] Last Admin: 11/08/17 09:03 Dose: 120 mg Saccharomyces Boulardii (Florastor) 250 mg PO DAILY [facility] Last Admin: 11/08/17 09:06 Dose: 250 mg Senna/Docusate Sodium (Senna Plus) 1 tab PO BID PRN PRN Reason: Constipation Last Admin: 11/07/17 20:17 Dose: 1 tab Simvastatin (Zocor) 10 mg PO DAILY [facility] Last Admin: 11/08/17 09:05 Dose: 10 mg Sucralfate (Carafate) 1 gm PO QID [facility] Last Admin: 11/08/17 13:14 Dose: 1 gm Sulindac (Clinoril) 150 mg PO BID [facility] Last Admin: 11/08/17 09:06 Dose: 150 mg Temazepam (Restoril) 7.5 mg PO BEDTIME PRN PRN Reason: Sleep Tiotropium [place] (Spiriva Handihaler) 18 mcg INH DAILY [facility] Last Admin: 11/08/17 08:47 Dose: 1 cap Trazodone HCl (Trazodone) 50 mg PO BEDTIME [facility] Last Admin: 11/07/17 20:28 Dose: 50 mg Triamcinolone Acetonide (Triamcinolone Acetonide 0.1% Crm) 0 gm TOP DAILY PRN PRN Reason: Itching Discontinued Medications Aspirin (Aspirin) 324 mg PO ONETIME ONE Stop: 11/04/17 10:15 Last Admin: 11/04/17 10:47 Dose: 324 mg Citalopram Hydrobromide (Celexa) 60 mg PO DAILY [facility] Hydromorphone HCl (Dilaudid) 0.5 mg IVPUSH ONETIME ONE Stop: 11/04/17 10:16 Last Admin: 11/04/17 10:45 Dose: 0.5 mg Dextrose/Sodium Chloride (Dextrose 5%-Normal Saline) 1,000 mls @ 125 mls/hr IV ASDIRECTED [facility] Last Admin: 11/04/17 10:43 Dose: 125 mls/hr Influenza Virus Vaccine (Pharmacy To Dose - Influenza Vaccine) 1 each IM ONETIME ONE Stop: 11/06/17 12:04 Influenza Virus Vaccine (Fluzone High-Dose ) 180 mcg IM .ONCE ONE Stop: 11/06/17 12:16 Magnesium Hydroxide (Milk Of Magnesia) 30 ml PO ONETIME ONE Stop: 11/07/17 13:37 Last Admin: 11/07/17 14:20 Dose: 30 ml Magnesium Sulfate (Pharmacy To Dose - Magnesium Replacement) 1 dose .XX ASDIRECTED [facility] Midazolam HCl (Versed 1 Mg/Ml) 2 mg IVPUSH ONETIME ONE Stop: 11/04/17 11:49 Last Admin: 11/04/17 12:04 Dose: 2 mg Ondansetron HCl (Zofran) 4 mg IVPUSH ONETIME ONE Stop: 11/04/17 10:17 Last Admin: 11/04/17 10:43 Dose: 4 mg Potassium Chloride (Pharmacy To Dose - Potassium Replacement) 1 dose .XX ASDIRECTED [facility] Trazodone HCl (Trazodone) 150 - 300 mg PO BEDTIME [facility] Last Admin: 11/04/17 21:06 Dose: 150 mg - Exam Quality Assessment: DVT Prophylaxis General: Alert, Oriented, Cooperative, No Acute Distress HEENT: Pupils Equal, Pupils Reactive, EOMI, Mucous Membr. Moist/[place] Neck: Supple, Trachea Midline. No: Lymphadenopathy, JVD Lungs: Clear to Auscultation, Normal Respiratory Effort Cardiovascular: Regular Rate, Regular Rhythm GI/Abdominal Exam: Normal Bowel Sounds, Soft, Non-Tender, No Organomegaly, No Distention, No Abnormal Bruit, No Mass, Pelvis Stable (Female) Exam: Deferred Back Exam: Normal Inspection, Full Range of Motion Extremities: Normal Inspection, Normal Range of Motion, Non-Tender, No Pedal Edema, Normal Capillary Refill Peripheral Pulses: 2+: Radial (L), Radial (R), Posterior Tibial (L), Posterior Tibial (R), Dorsalis Pedis (L), Dorsalis Pedis (R) Skin: Warm, Dry, Intact Neurological: No New Focal Deficit Psy/Mental Status: Alert, Normal Affect, Normal Mood - Problem List & Annotations (1) Cerebrovascular accident (CVA) SNOMED Code(s): 042055480 Code(s): I63.9 - CEREBRAL INFARCTION, UNSPECIFIED Status: Acute Priority : High Current Visit: Yes Qualifiers: CVA mechanism: unspecified Qualified Code(s): I63.9 - Cerebral infarction, unspecified (2) Asthma SNOMED Code(s): 358361973 Code(s): J45.909 - UNSPECIFIED ASTHMA, UNCOMPLICATED Status: Chronic Priority: Low Current Visit: No Qualifiers: Asthma severity: unspecified severity Asthma persistence: unspecified Asthma complication type: unspecified Qualified Code(s): J45.909 - Unspecified asthma, uncomplicated (3) COPD (chronic obstructive pulmonary disease) SNOMED Code(s): 66789175 Code(s): J44.9 - CHRONIC OBSTRUCTIVE PULMONARY DISEASE, UNSPECIFIED Status : Chronic Priority: Low Current Visit: No Qualifiers: COPD type: unspecified COPD Qualified Code(s): J44.9 - Chronic obstructive pulmonary disease, unspecified (4) Depression SNOMED Code(s): 34997661 Code(s): F32.9 - MAJOR DEPRESSIVE DISORDER, SINGLE EPISODE, UNSPECIFIED Status: Chronic Priority: Medium Current Visit: Yes Qualifiers: Depression Type: other depression Qualified Code(s): F32.89 - Other specified depressive episodes (5) Insomnia SNOMED Code(s): 117498342 Code(s): G47.00 - INSOMNIA, UNSPECIFIED Status: Chronic Priority: Low Current Visit: No Qualifiers: Insomnia type: unspecified Qualified Code(s): G47.00 - Insomnia, unspecified (6) Hypothyroidism SNOMED Code(s): 23287500 Code(s): E03.9 - HYPOTHYROIDISM, UNSPECIFIED Status: Chronic Priority: Medium Current Visit: Yes Qualifiers: Hypothyroidism type: unspecified Qualified Code(s): E03.9 - Hypothyroidism , unspecified (7) Medical non-compliance SNOMED Code(s): 501644115 Code(s): Z91.19 - PATIENT'S NONCOMPLIANCE W OTH MEDICAL TREATMENT AND REGIMEN Status: Acute Priority: High Current Visit: Yes - Problem List Review Problem List Initiated/Reviewed/Updated: Yes - Plan Plan:: I/P: Acute: CVA -Last seen well 11/03/17 around 1145 - noted difficulty communicating -Stopped taking all medicines about a year ago per and her -Risk factors: Smoker, hx/o hld, avoids medical provider -VSS -CT (11/04/17) notes area in left parietal and occipital cortex of diminished blood flow -Old infarct within left anterior frontal region -Diminished density wihtin periventricular white matter compatable with small vessel ischemic demyelenation changes -Atherosclerotic desiccation within carotid siphon and vertebral vessesl -324mg ASA given in ED - switch to 162mg daily -Carotid ultrasound (11/04/17) - moderate amount of plaque -Stenosis within 1-49% bilaterally -MRI (11/04/17) - Fairly acute but irreversible infarcts in left temporoparietal region in medial left occipital lobe -Low signal findings in temoporal parietal infarct compatable with microscopic hemorrhages -Small vessel ischemic demyelination changes noted -Old infarcts within both frontal lobes seen -Echo obtained -EF by Herrera's MOD the proximal was approximately 62%. -Impaired relaxation (grade 1) pattern of LV diastolic filling. -Right ventricle size is normal. Right ventricular systolic function is normal. -Left atrium is normal in size. -Right atrium is normal size. -Aortic valve is tricuspid. -Moderate aortic valve sclerosis without stenosis. -Mitral valve is degenerative in appearance. -Mitral leaflet mobility is normal. Mild MV regurgitation. -Tricuspid valve normal in structure. Trace TV regurgitation. -Pulmonic valve normal structure. Pulmonary artery is of normal size margin. -Lipid panel - Triglycerides 147, cholesterol 24, LDL 131, HDL 43 -Restart statin -Will need f/u with PCP to possibly adjust dosage -BID neuro checks -COVERAGE SPECIALIST evaluation - No swallowing issues; suggesting rehabilitation Hypothyroidism -TSH 10.843 -Free T4 0.87 -Resume home Synthroid -Will need f/u with PCP to re-check in 4-6 weeks Chronic: Asthma - home meds COPD - home meds Depression - consider zachary consult Insomnia tobacco use disorder - nicotine patch, staff counselor on smoking cessation Plan: Admit to medical floor on telemetry CM/SW for discharge planning PT/OT Other orders as indicated above Routine AM labs Home medications as ordered DVT/PE prophylaxis: SCDs Expected discharge or Wednesday. Code status: Full code; PCP Lisette Reid in [place], although she has not seen her in some time. LOS>96 hours for CVA recovery and placement
[2017-11-08] MEDS: traZODone 50 MG Tab PO SCH (22:06)
--- NOTE | 2017-11-09 07:36 | PCM.DCSUM1 ---
Discharge Summary - Hospital Course Free Text/Narrative:: Chelsea Summers is a 67 yo female reason [facility] ED today from [place] via ambulance. Stroke alert was called in the ED. It is reported that yesterday morning between 11:30 and 1145 she developed sudden troubles speaking and a headache. Initially she seemed very hard of hearing or having difficulty understanding speech. Her speech was initially nearly normal, however over time he became more garbled and obvious expressive aphasia was noted. No signs of neurologic deficit. Cranial nerves II through XII were intact. Tongue was mildly dry. Blood pressure was stable. No previous history of CVA. Her did realize that she had not been taking any of her medications for over a year which included her thyroid replacement hormone. She is a history of major depression and her has not been able to get her to go the doctor. She has complained of only a headache in the ED. Denies nausea or vomiting. Unsure when she last ate or had anything to drink. She reportedly does not have a drug or alcohol problem. Her speech has improved somewhat today. In the ER temp was 37.1 Celsius. Pulse 85. Respirations 16. BP 127/83 pulse ox 98%. Labs are obtained: The CBC is normal at 9.5. Hemoglobin normal at 14.5. Hematocrit 43.3. She is normocytic. Platelet count is good at 240,000. Neutrophils are elevated at 73%. There is 1% band neutrophils noted. ESR 16. PT is 10.6. INR 0.97. APTT 28. Sodium was good at 141. Potassium 4.1. Chloride 106. Carbon dioxide 22. Anion gap was slightly high at 17.1. BUN is elevated at 21. Creatinine is 0.7. EGFR is greater than 60. Glucose is 105. Calcium 9.5. Total bilirubin 0.3. Liver enzymes looked good with AST at 24, ALT at 42, alkaline phosphatase at 75. Creatinine kinase is 50. CRP is less than 0.2. Total protein is 7.2. Albumin is 3.9. TSH is very high at 10.843. She started on D5 normal saline, given aspirin 324 mg, 4 mg of Zofran, and 0.5 mg of Dilaudid for pain. He is not having any noted weakness or difficulty walking, however she does have difficulty speaking and appears to have cognition difficulties. CT scan of the head was obtained and did not reveal any signs of intracranial bleeding or mass effect, however, there is an area in the left parietal occipital cortex of diminished blood flow suggesting a recent infarct. There is also old infarct noted within the anterior left frontal region. There are diminished density noted within portions of periventricular white matter compatible with small vessel ischemic demyelination changes in the basal ganglia. An MRI will be attempted on the floor. She carries a history of asthma, COPD, depression, chronic insomnia, hypothyroidism. She is a current daily smoker. She is subsequently admitted to the medical floor. She is a full code. She has not seen the doctor in some time, however her states her PCP is Lisette alvarez [place]. - Discharge Data Discharge Date: 11/09/17 (admit date 11/04/17) Discharge Disposition: DC/Tfer to SNF 03 Condition: Good - Discharge Diagnosis/Problem(s) (1) Cerebrovascular accident (CVA) SNOMED Code(s): 261730043 ICD Code: I63.9 - CEREBRAL INFARCTION, UNSPECIFIED Status: Acute Priority : High Current Visit: Yes Qualifiers: CVA mechanism: unspecified Qualified Code(s): I63.9 - Cerebral infarction, unspecified (2) Expressive aphasia SNOMED Code(s): 927004175 ICD Code: R47.01 - APHASIA Status: Acute Priority: High Current Visit: Yes (3) Asthma SNOMED Code(s): 923430487 ICD Code: J45.909 - UNSPECIFIED ASTHMA, UNCOMPLICATED Status: Chronic Priority: Low Current Visit: No Qualifiers: Asthma severity: unspecified severity Asthma persistence: unspecified Asthma complication type: unspecified Qualified Code(s): J45.909 - Unspecified asthma, uncomplicated (4) COPD (chronic obstructive pulmonary disease) SNOMED Code(s): 17085016 ICD Code: J44.9 - CHRONIC OBSTRUCTIVE PULMONARY DISEASE, UNSPECIFIED Status : Chronic Priority: Low Current Visit: No Qualifiers: COPD type: unspecified COPD Qualified Code(s): J44.9 - Chronic obstructive pulmonary disease, unspecified (5) Depression SNOMED Code(s): 52806858 ICD Code: F32.9 - MAJOR DEPRESSIVE DISORDER, SINGLE EPISODE, UNSPECIFIED Status: Chronic Priority: Medium Current Visit: Yes Qualifiers: Depression Type: other depression Qualified Code(s): F32.89 - Other specified depressive episodes (6) Insomnia SNOMED Code(s): 278953292 ICD Code: G47.00 - INSOMNIA, UNSPECIFIED Status: Chronic Priority: Medium Current Visit: Yes Qualifiers: Insomnia type: unspecified Qualified Code(s): G47.00 - Insomnia, unspecified (7) Hypothyroidism SNOMED Code(s): 10033109 ICD Code: E03.9 - HYPOTHYROIDISM, UNSPECIFIED Status: Chronic Priority: Medium Current Visit: Yes Qualifiers: Hypothyroidism type: unspecified Qualified Code(s): E03.9 - Hypothyroidism , unspecified (8) Medical non-compliance SNOMED Code(s): 493362209 ICD Code: Z91.19 - PATIENT'S NONCOMPLIANCE W OTH MEDICAL TREATMENT AND REGIMEN Status: Acute Priority: High Current Visit: Yes - Patient Summary/Data Operative Procedure(s) Performed: None Complications: None Consults: Consultations 11/04/17 12:36 OT Evaluation and Treatment [CONS] Routine PT Evaluation and Treatment [CONS] Routine DIRECTOR WRITING Evaluation and Treatment [CONS] Routine 11/05/17 02:46 Consult to Physician [CONS] Routine 11/05/17 11:43 Consult to Speech Language Pathology [DIRECTOR WRITING Evaluation and Treatment] [CONS] Routine Labs Pending at D/C: None Recommended Follow-up Testing/Procedures: Speech Therapy: SNF with DIRECTOR WRITING for Wernicke's Aphasia. No DIRECTOR WRITING Tx for dysphagia indicated at this time. Recommend oral intake of thin liquids and NDD4 (regular solids); medications whole with thin liquids. Follow-up with your primary care provider within one week, Dr. Love at rehab; SERGIO Zamudio once discharged from rehab. Recommend recheck of TSH within 2-3 months. Planned Operative Procedure(s) after DC: None Hospital Course: I/P: Acute: CVA -Last seen well 11/03/17 around 1145 - noted difficulty communicating -Stopped taking all medicines about a year ago per and her -Risk factors: Smoker, hx/o hld, avoids medical provider -VSS -CT (11/04/17) notes area in left parietal and occipital cortex of diminished blood flow -Old infarct within left anterior frontal region -Diminished density wihtin periventricular white matter compatable with small vessel ischemic demyelenation changes -Atherosclerotic desiccation within carotid siphon and vertebral vessesl -324mg ASA given in ED - switch to 162mg daily -Carotid ultrasound (11/04/17) - moderate amount of plaque -Stenosis within 1-49% bilaterally -MRI (11/04/17) - Fairly acute but irreversible infarcts in left temporoparietal region in medial left occipital lobe -Low signal findings in temoporal parietal infarct compatable with microscopic hemorrhages -Small vessel ischemic demyelination changes noted -Old infarcts within both frontal lobes seen -Echo obtained -EF by Herrera's MOD the proximal was approximately 62%. -Impaired relaxation (grade 1) pattern of LV diastolic filling. -Right ventricle size is normal. Right ventricular systolic function is normal. -Left atrium is normal in size. -Right atrium is normal size. -Aortic valve is tricuspid. -Moderate aortic valve sclerosis without stenosis. -Mitral valve is degenerative in appearance. -Mitral leaflet mobility is normal. Mild MV regurgitation. -Tricuspid valve normal in structure. Trace TV regurgitation. -Pulmonic valve normal structure. Pulmonary artery is of normal size margin. -Lipid panel - Triglycerides 147, cholesterol 24, LDL 131, HDL 43 -Restart statin -Will need f/u with PCP to possibly adjust dosage -BID neuro checks -DIRECTOR WRITING evaluation - No swallowing issues; suggesting rehabilitation Hypothyroidism -TSH 10.843 -Free T4 0.87 -Resume home Synthroid -Will need f/u with PCP to re-check in 4-6 weeks Chronic: Asthma - home meds COPD - home meds Depression - consider zachary consult Insomnia tobacco use disorder - nicotine patch, beauty counselor on smoking cessation Plan: Admit to medical floor on telemetry CM/SW for discharge planning PT/OT Other orders as indicated above Routine AM labs Home medications as ordered DVT/PE prophylaxis: SCDs Expected discharge or Wednesday. Code status: Full code; PCP Lisette Reid in [place], although she has not seen her in some time. Dr. Love will be assuming care at SNF. LOS>96 hours for CVA recovery and placement - Patient Instructions Diet: Heart Healthy Diet Activity: As Tolerated Driving: Do Not Drive Showering/Bathing: May Shower Notify Provider of: Fever, Increased Pain, Nausea and/or Vomiting - Discharge Plan Prescriptions/Med Rec: Aspirin 162 mg PO DAILY #30 tab.chew Nicotine [Nicotine Patch] 1 each TD DAILY #14 patch.td24 Home Medications: Home Meds Albuterol Sulfate [Proair Hfa] 1 - 2 puff INH Q4H PRN 11/04/17 [History] Calcium Carbonate [Calcium] 500 mg PO DAILY 11/04/17 [History] Citalopram Hydrobromide [Celexa] 60 mg PO DAILY 11/04/17 [History] Ergocalciferol (Vitamin D2) [Vitamin D2] 2,000 unit PO DAILY 11/04/17 [History] Fluticasone Propionate [Flovent HFA 110 MCG] 1 puff INH BID 11/04/17 [History] Hydrocodone/Acetaminophen [Hydrocodon-Acetaminoph 7.5-325] 1 tab PO TID [History] LORazepam 1 mg PO BID 11/04/17 [History] Lactobacillus Rhamnosus GG [Culturelle] 1 cap PO DAILY 11/04/17 [History] Leflunomide 20 mg PO DAILY 11/04/17 [History] Levothyroxine Sodium [Synthroid] 125 mcg PO DAILY 11/04/17 [History] Loratadine/Pseudoephedrine [Loratadine-D 12HR] 1 tab PO BID 11/04/17 [History] Nabumetone 1,000 mg PO DAILY 11/04/17 [History] [place]-3/DHA/Epa/Fish Oil [[place]-3 Fish Oil 1,200 MG Sfgl] 1,200 mg PO DAILY [History] Omeprazole 40 mg PO BID 11/04/17 [History] Potassium Gluconate 595 mg PO DAILY 11/04/17 [History] Sucralfate 1 gm PO QID 11/04/17 [History] Tiotropium [Spiriva HandiHaler] 18 mcg INH DAILY 11/04/17 [History] Triamcinolone Acetonide [Triamcinolone Acetonide 0.1% Crm] 1 appful TOP DAILY PRN 11/04/17 [History] Ubidecarenone [Co Q-10] 100 mg PO DAILY 11/04/17 [History] atorvaSTATin [Lipitor] 10 mg PO DAILY 11/04/17 [History] traZODone HCl [Trazodone HCl] 1 - 2 tab PO BEDTIME 11/04/17 [History] Aspirin 162 mg PO DAILY #30 tab.chew 11/08/17 [Rx] Nicotine [Nicotine Patch] 1 each TD DAILY #14 patch.td24 11/08/17 [Rx] Patient Handouts: Smoking Cessation, Tips for Success, [id number], Stroke Prevention, Obcc-fa-[id number], Ischemic Stroke Treated Without Warfarin, Jbro-qw-[id number] Forms: ED Department Discharge Referrals: Lisette Reid OUTPATIENT PHLEBOTOMIST [Primary Care Provider] - Jignesh Love MD [Physician] - - Discharge Summary/Plan Comment DC Time >30 min.: Yes (50 min) - General Info Date of Service: 11/09/17 Admission Dx/Problem (Free Text: Admission Diagnosis/Problem Admission Diagnosis/Problem CVA, Cerebrovascular accident Functional Status: Reports: Pain Controlled, Tolerating Diet, Ambulating, Urinating, Incentive Spirometry. Denies: New Symptoms - Review of Systems General: Reports: No Symptoms HEENT: Reports: No Symptoms Pulmonary: Reports: No Symptoms Cardiovascular: Reports: No Symptoms Gastrointestinal: Reports: No Symptoms Musculoskeletal: Reports: No Symptoms Neurological: Reports: Trouble Speaking (improving) - Patient Data Vitals - Most Recent: Last Vital Signs Temp 96.9 F 11/09/17 04:00 Pulse 80 11/09/17 04:00 Resp 16 11/09/17 04:00 BP 103/76 11/09/17 04:00 Pulse Ox 93 L 11/09/17 04:00 Weight - Most Recent: 119 lb 4.8 oz I&O - Last 24 hours: Intake & Output 11/08/17 11/09/17 11/09/17 22:59 06:59 14:59 Intake Total 680 150 Balance 680 150 Med Orders - Current: Current Medications Acetaminophen (Tylenol) 650 mg PO Q4H PRN PRN Reason: Pain (Mild 1-3)/fever Hydrocodone Bitart/Acetaminophen ([place] 325-5 Mg) 1 tab PO Q4H PRN PRN Reason: Pain (moderate 4-6) Hydrocodone Bitart/Acetaminophen ([place] 325-5 Mg) 1.5 tab PO TID [facility] Last Admin: 11/08/17 22:06 Dose: 1.5 tab Albuterol/Ipratropium (Duoneb 3.0-0.5 Mg/3 Ml) 3 ml NEB Q4H PRN PRN Reason: Shortness Of Breath/wheezing Aspirin (Aspirin) 162 mg PO DAILY [facility] Last Admin: 11/08/17 09:04 Dose: 162 mg Bisacodyl (Dulcolax) 5 mg PO DAILY PRN PRN Reason: Constipation Last Admin: 11/07/17 20:17 Dose: 5 mg Calcium Carbonate/Glycine (Calcium Carbonate) 600 mg PO DAILY [facility] Last Admin: 11/08/17 09:04 Dose: 600 mg Citalopram Hydrobromide (Celexa) 10 mg PO DAILY [facility] Last Admin: 11/08/17 09:04 Dose: 10 mg Docusate Sodium (Colace) 100 mg PO BID PRN PRN Reason: Constipation Last Admin: 11/06/17 17:01 Dose: 100 mg Fish Oil (Fish Oil) 1 gm PO DAILY [facility] Last Admin: 11/08/17 09:04 Dose: 1 gm Hydralazine HCl (Apresoline) 20 mg IVPUSH Q4H PRN PRN Reason: Hypertension Hydromorphone HCl (Dilaudid) 0.25 mg IVPUSH Q2H PRN PRN Reason: Pain (severe 7-10) Promethazine HCl 12.5 mg/ (Sodium Chloride) 50.5 mls @ 100 mls/hr IV Q6H PRN PRN Reason: Nausea/Vomiting Sodium Chloride (Normal Saline) 1,000 mls @ 50 mls/hr IV ASDIRECTED [facility] Last Admin: 11/07/17 12:40 Dose: 50 mls/hr Levothyroxine Sodium (Levothyroxine) 125 mcg PO DAILY [facility] Last Admin: 11/08/17 09:05 Dose: 125 mcg Loratadine (Claritin) 10 mg PO BID [facility] Last Admin: 11/08/17 22:06 Dose: 10 mg Lorazepam (Ativan) 0.25 mg IV Q6H PRN PRN Reason: Anxiety Lorazepam (Ativan) 1 mg PO BID [facility] Last Admin: 11/08/17 22:04 Dose: 1 mg Metoprolol Tartrate (Lopressor) 5 mg IVPUSH Q4H PRN PRN Reason: Tachycardia Miscellaneous Information (Remove Patch) 0 ea TRDERM DAILY [facility] Last Admin: 11/08/17 13:14 Dose: Not Given Mometasone Furoate (Asmanex Hfa 100mcg) 0 gm INH BID [facility] Last Admin: 11/08/17 20:18 Dose: 1 puff Nicotine (Habitrol) 21 mg TRDERM DAILY [facility] Last Admin: 11/08/17 09:05 Dose: 21 mg Ondansetron HCl (Zofran) 4 mg IV Q4H PRN PRN Reason: Nausea/Vomiting Pantoprazole Sodium (Protonix) 40 mg PO BID [facility] Last Admin: 11/08/17 22:06 Dose: 40 mg Ergocalciferol ( Vitamin D2) [Vitamin D2] 2,000 Unit 0 each PO DAILY [facility] Last Admin: 11/08/17 12:10 Dose: Not Given Leflunomide 20 Mg 0 each PO DAILY [facility] Last Admin: 11/08/17 12:10 Dose: Not Given Potassium Gluconate (595 Mg) 0 each PO DAILY [facility] Last Admin: 11/08/17 12:11 Dose: Not Given Ubidecarenone 100 Mg 0 each PO DAILY [facility] Last Admin: 11/08/17 12:11 Dose: Not Given Polyethylene Glycol (Miralax) 17 gm PO DAILY PRN PRN Reason: Constipation Pseudoephedrine HCl (Sudogest) 120 mg PO BID [facility] Last Admin: 11/08/17 22:05 Dose: 120 mg Saccharomyces Boulardii (Florastor) 250 mg PO DAILY [facility] Last Admin: 11/08/17 09:06 Dose: 250 mg Senna/Docusate Sodium (Senna Plus) 1 tab PO BID PRN PRN Reason: Constipation Last Admin: 11/07/17 20:17 Dose: 1 tab Simvastatin (Zocor) 10 mg PO DAILY [facility] Last Admin: 11/08/17 09:05 Dose: 10 mg Sucralfate (Carafate) 1 gm PO QID [facility] Last Admin: 11/08/17 22:06 Dose: 1 gm Sulindac (Clinoril) 150 mg PO BID [facility] Last Admin: 11/08/17 22:05 Dose: 150 mg Temazepam (Restoril) 7.5 mg PO BEDTIME PRN PRN Reason: Sleep Tiotropium [place] (Spiriva Handihaler) 18 mcg INH DAILY [facility] Last Admin: 11/08/17 08:47 Dose: 1 cap Trazodone HCl (Trazodone) 50 mg PO BEDTIME [facility] Last Admin: 11/08/17 22:06 Dose: 50 mg Triamcinolone Acetonide (Triamcinolone Acetonide 0.1% Crm) 0 gm TOP DAILY PRN PRN Reason: Itching Discontinued Medications Aspirin (Aspirin) 324 mg PO ONETIME ONE Stop: 11/04/17 10:15 Last Admin: 11/04/17 10:47 Dose: 324 mg Citalopram Hydrobromide (Celexa) 60 mg PO DAILY [facility] Hydromorphone HCl (Dilaudid) 0.5 mg IVPUSH ONETIME ONE Stop: 11/04/17 10:16 Last Admin: 11/04/17 10:45 Dose: 0.5 mg Dextrose/Sodium Chloride (Dextrose 5%-Normal Saline) 1,000 mls @ 125 mls/hr IV ASDIRECTED [facility] Last Admin: 11/04/17 10:43 Dose: 125 mls/hr Influenza Virus Vaccine (Pharmacy To Dose - Influenza Vaccine) 1 each IM ONETIME ONE Stop: 11/06/17 12:04 Influenza Virus Vaccine (Fluzone High-Dose ) 180 mcg IM .ONCE ONE Stop: 11/06/17 12:16 Magnesium Hydroxide (Milk Of Magnesia) 30 ml PO ONETIME ONE Stop: 11/07/17 13:37 Last Admin: 11/07/17 14:20 Dose: 30 ml Magnesium Sulfate (Pharmacy To Dose - Magnesium Replacement) 1 dose .XX ASDIRECTED [facility] Midazolam HCl (Versed 1 Mg/Ml) 2 mg IVPUSH ONETIME ONE Stop: 11/04/17 11:49 Last Admin: 11/04/17 12:04 Dose: 2 mg Ondansetron HCl (Zofran) 4 mg IVPUSH ONETIME ONE Stop: 11/04/17 10:17 Last Admin: 11/04/17 10:43 Dose: 4 mg Potassium Chloride (Pharmacy To Dose - Potassium Replacement) 1 dose .XX ASDIRECTED [facility] Trazodone HCl (Trazodone) 150 - 300 mg PO BEDTIME [facility] Last Admin: 11/04/17 21:06 Dose: 150 mg - Exam Quality Assessment: Reports: DVT Prophylaxis General: Reports: Alert, Oriented, Cooperative, No Acute Distress HEENT: Reports: Pupils Equal, EOMI, Mucous Membr. Moist/[place] Neck: Reports: Supple Lungs: Reports: Clear to Auscultation, Normal Respiratory Effort Cardiovascular: Reports: Regular Rate, Regular Rhythm GI/Abdominal Exam: Normal Bowel Sounds, Soft, Non-Tender (Female) Exam: Deferred Rectal (Female) Exam: Deferred Extremities: No Pedal Edema, Normal Capillary Refill Neurological: Reports: Other (expressive aphasia---improved) Psy/Mental Status: Reports: Alert, Normal Affect, Normal Mood *Q Meaningful Use (DIS) - VTE *Q VTE Criteria *Q: - Stroke *Q Stroke Criteria *Q: - AMI *Q AMI Criteria *Q:
[2017-11-09] MEDS: Tiotropium Inhaler 18 MCG Inhalation Powder Cap Kit of 5 INH SCH (08:18)
[2017-11-09] MEDS: Mometasone Furoate HFA 100mcg/Puff 13 GM Inhaler INH SCH (08:18)
[2017-11-09 08:35] VITALS: BP 109/75
[2017-11-09] MEDS: Aspirin 81 MG Tab.Chew PO SCH (10:07)
[2017-11-09] MEDS: LORazepam 1 MG Tab PO SCH (10:07)
[2017-11-09] MEDS: Calcium Carbonate 600 MG Tab PO SCH (10:08)
[2017-11-09] MEDS: Sucralfate 1 GM Tab PO SCH (10:08)
[2017-11-09] MEDS: Loratadine 10 MG Tab PO SCH (10:09)
[2017-11-09] MEDS: Fish Oil/Omega-3 Fatty Acids 1 Gm Cap PO SCH (10:09)
[2017-11-09] MEDS: Citalopram 10 MG Tab PO SCH (10:09)
[2017-11-09] MEDS: Nicotine 21 MG/24 Hr Patch TRDERM SCH (10:10)
[2017-11-09] MEDS: Saccharomyces Boulardii (Probiotic) 250 MG Cap PO SCH (10:10)
[2017-11-09] MEDS: Levothyroxine 125 MCG Tab PO SCH (10:11)
[2017-11-09] MEDS: Acetaminophen/HYDROcodone 325-5 MG Tab PO SCH (10:12)
[2017-11-09] MEDS: Pantoprazole 40 MG Tab.CR PO SCH (10:13)
[2017-11-09] MEDS: Pseudoephedrine 30 MG Tab PO SCH (10:14)
[2017-11-09] MEDS: Simvastatin 10 MG Tab PO SCH (10:15)
[2017-11-09] MEDS: ERGOCALCIFEROL 2000 UNIT PO SCH (10:16)
== END 2017-11-09 10:40 | disposition home or self-care (01) | DRG 66 ==
LOC: JD.ED 09:41 → JD.MS 11:43 → JD.OB 11-08 00:24 → JD.MS 11-09 10:39 → UNDODISIN 11-09 10:40
PROVIDERS: ADMIT Emergency Medicine; ATTEND Internal Medicine
PROC: 3E0234Z Introduction of Serum, Toxoid and Vaccine into Muscle, Percutaneous Approach (ICD-10-PCS; principal; 2017-11-09)
DX: I63.9 Cerebral infarction, unspecified (principal); R47.01 Aphasia; J44.9 Chronic obstructive pulmonary disease, unspecified; F32.9 Major depressive disorder, single episode, unspecified; G47.00 Insomnia, unspecified; E03.9 Hypothyroidism, unspecified; Z91.19 Patient's noncompliance with other medical treatment and regimen; F17.210 Nicotine dependence, cigarettes, uncomplicated; Z88.2 Allergy status to sulfonamides; Z79.82 Long term (current) use of aspirin; Z79.899 Other long term (current) drug therapy; Z23 Encounter for immunization
CPT/HCPCS: 36415; 70450; 70450-26; 70551; 70551-26; 71045; 71045-26; 80048; 80053; 80061; 82550; 83735; 84439; 84443; 85025; 85610; 85652; 85730; 86140; 90662; 92507-GN; 92523-GN; 92610-GN; 93005; 93306; 93880; 93880-26; 94640; 94664; 94760; 94761; 96361; 96374; 96375; 97161-GP; 97165-GO; 99284; 99285-25; A9270; A9270-GY; G0008; J1170; J2250; J2405; J7040; J7042

== ENCOUNTER 2018-01-21 21:25 | Inpatient (IN) | payer MEDICARE, BC ==
--- NOTE | 2018-01-21 21:49 | EDM.PDOC ---
ED HPI GENERAL MEDICAL PROBLEM - General Chief Complaint: Neuro Symptoms/Deficits Stated Complaint: STROKE ALERT Time Seen by Provider: 01/21/18 21:40 Source of Information: Reports: Patient, EMS History Limitations: Reports: Altered Mental Status, Physical Impairment - History of Present Illness INITIAL COMMENTS - FREE TEXT/NARRATIVE: This is a 67-year-old female. Apparently around 4 PM this afternoon the noted her to have some slurred speech and facial drooping. They did not call the ambulance until an hour and a half later which did not clear up. She arrives to our ER at 9:34 PM with the symptoms of garbled speech and facial drooping. The abdomen screw that picked her up in [place] stated that she was able to walk to the stretcher at her house. On the way to the ER she had waxing and waning speech properties. She does have a history back in October of this year which she came in with similar symptoms including a headache which she also complains of this evening. 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 The patient is able to express and answer questions for the NIH score. Her NIH score is 4. She also complains of a headache but she really can't describe where it is. She denies any chest pain she denies any shortness of breath. She takes a baby aspirin daily. She is on no other blood thinners. Blood sugar in the ambulance was 99 and when she arrived here her blood sugar was 79. - Related Data Allergies Allergy/AdvReac Type Severity Reaction Status Date / Time Sulfa (Sulfonamide Allergy Severe Hives Verified 11/04/17 10:10 Antibiotics) Home Meds: Home Meds Citalopram Hydrobromide [Celexa] 0 mg PO DAILY 11/04/17 [History] LORazepam 1 mg PO BID 11/04/17 [History] Leflunomide 20 mg PO DAILY 11/04/17 [History] Levothyroxine Sodium [Synthroid] 125 mcg PO DAILY 11/04/17 [History] Omeprazole 40 mg PO DAILY 11/04/17 [History] Sucralfate 1 gm PO QID 11/04/17 [History] atorvaSTATin [Lipitor] 10 mg PO DAILY 11/04/17 [History] traZODone HCl [Trazodone HCl] 1 - 2 tab PO BEDTIME 11/04/17 [History] Aspirin 81 mg PO DAILY 01/21/18 [History] Cholecalciferol (Vitamin D3) [Vitamin D3] 0 mg PO DAILY 01/21/18 [History] Lactobacillus Acidophilus [Acidophilus Lactobacillus] 1 cap PO DAILY 01/21/18 [ History] Past Medical History HEENT History: Reports: Allergic Rhinitis, Hard of Hearing, Impaired Vision, Sinusitis Other HEENT History: wears reading glasses Cardiovascular History: Reports: Aneurysm, High Cholesterol, Hypertension Respiratory History: Reports: Asthma, COPD Gastrointestinal History: Reports: Helicobacter Pylori, PUD 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: Musculoskeletal History: Reports: Osteoarthritis, Osteoporosis Neurological History: Reports: CVA Psychiatric History: Reports: Depression, Other (See Below) Endocrine/Metabolic History: Reports: Hypothyroidism Hematologic History: Reports: Anemia - Infectious Disease History Infectious Disease History: Reports: Shingles - Past Surgical History HEENT Surgical History: Reports: Cataract Surgery, Naso-Sinus Surgery Respiratory Surgical History: Reports: None GI Surgical History: Reports: Bariatric Procedure, Cholecystectomy Female Surgical History: Reports: Breast Implant, Breast Reconstruction, Breast Reduction, Hysterectomy, Tubal Ligation Neurological Surgical History: Reports: None Musculoskeletal Surgical History: Reports: Shoulder Surgery Social & Family History - Family History Family Medical History: Noncontributory - Tobacco Use Smoking Status *Q: Light Tobacco Smoker Years of Tobacco use: 50 Packs/Tins Daily: 0.5 Used Tobacco, but Quit: No Second Hand Smoke Exposure: No - Caffeine Use Caffeine Use: Reports: None Caffeine Use Comment: 1 cup/day - Alcohol Use Days Per Week of Alcohol Use: 0 - Recreational Drug Use Recreational Drug Use: No ED ROS GENERAL - Review of Systems Review Of Systems: Unable To Obtain (Patient has mild expressive aphasia though she is understandable despite the garbled speech) ED EXAM, NEURO - Physical Exam Exam: See Below Exam Limited By: Physical Impairment General Appearance: Alert, Mild Distress, Thin, Other (Patient does appear to be pale) Eye Exam: Bilateral Eye: Normal Inspection, Other (Pupils are reactive and equal she appears to have good EOMs) Ears: Normal External Exam, Normal Canal, Normal TMs Nose: Normal Inspection Throat/Mouth: Normal Lips, Other (She is noted to have left-sided facial drooping, she is able to stick her tongue out and there is no deviation, she does have some garbled speech though she is understandable) Head Exam: Normocephalic Neck: Supple, Other (No bruits are noted) Respiratory/Chest: No Respiratory Distress, Lungs Clear, Normal Breath Sounds Cardiovascular: Regular Rate, Rhythm, No Murmur GI/Abdominal: Soft Neurological: Alert, Oriented x 3, Other (He does not have any upper extremity drift and no lower extremity drift, she is able to do [id number] on both sides without difficulty, she has symmetrical construction flagger strength noted, please note the NIH scale that is under the nursing section). No: Babinski Back Exam: Normal Inspection Extremities: Normal Inspection. No: Pedal Edema Psychiatric: Flat Affect Skin Exam: Warm, Dry EKG INTERPRETATION EKG Date: 01/21/18 Time: 10:05 EKG Interpretation Comments: EKG shows a sinus rhythm with no acute ST or T-wave changes and no ischemia noted. Course - Vital Signs Last Recorded V/S: Last Vital Signs Temp 98.1 F 01/21/18 21:31 Pulse 85 01/21/18 21:31 Resp 20 01/21/18 21:31 BP 123/77 01/21/18 21:31 Pulse Ox 91 L 01/21/18 21:31 - Orders/Labs/Meds Orders: Active Orders 24 hr Category Date Time Status Admission Status [Patient Status] [ADT] Routine ADT 01/21/18 23:01 Active Cardiac Monitoring [RC] CONTINUOUS Care 01/21/18 23:02 Active EKG Documentation Completion [RC] STAT Care 01/21/18 21:50 Active Height and Weight [RC] UPON Care 01/21/18 23:01 Active Intake and Output [RC] QSHIFT Care 01/21/18 23:01 Active Oxygen Therapy [RC] PRN Care 01/21/18 23:01 Active RT Aerosol Therapy [RC] ASDIRECTED Care 01/21/18 23:04 Active Up With Assistance [RC] ASDIRECTED Care 01/21/18 23:01 Active Up ad [place] [RC] ASDIRECTED Care 01/21/18 23:01 Active VTE/DVT Education [RC] PER UNIT ROUTINE Care 01/21/18 23:01 Active Vital Signs [RC] Q4H Care 01/21/18 23:01 Active Consult to Case Management [CONS] Routine Cons 01/21/18 23:04 Active Consult to Coal Equipment Operator [CONS] Routine Cons 01/21/18 23:04 Active Consult to Spiritual Care [CONS] Routine Cons 01/21/18 23:04 Active OT Evaluation and Treatment [CONS] Routine Cons 01/21/18 23:04 Active PT Evaluation and Treatment [CONS] Routine Cons 01/21/18 23:04 Active TECHNICAL SYSTEM ANALYST Evaluation and Treatment [CONS] Routine Cons 01/21/18 23:04 Active Heart Healthy Diet [DIET] Diet 01/21/18 Dinner Active Head wo Cont [CT] Routine Exams 01/21/18 Taken BASIC METABOLIC PANEL,BMP [CHEM] AM Lab 01/22/18 05:11 Ordered BASIC METABOLIC PANEL,BMP [CHEM] AM Lab 01/23/18 05:11 Ordered BASIC METABOLIC PANEL,BMP [CHEM] AM Lab 01/24/18 05:11 Ordered CBC WITH AUTO DIFF [HEME] AM Lab 01/22/18 05:11 Ordered CULTURE URINE [RM] Stat Lab 01/21/18 23:04 Ordered MAGNESIUM [CHEM] AM Lab 01/22/18 05:11 Ordered MAGNESIUM [CHEM] AM Lab 01/23/18 05:11 Ordered MAGNESIUM [CHEM] AM Lab 01/24/18 05:11 Ordered Acetaminophen [Tylenol] Med 01/21/18 23:01 Active 650 mg PO Q4H PRN Acetaminophen/HYDROcodone [[place] 325-5 MG] Med 01/21/18 23:01 Active 1 tab PO Q4H PRN Albuterol/Ipratropium [DuoNeb 3.0-0.5 MG/3 ML] Med 01/21/18 23:01 Active 3 ml NEB Q4H PRN Bisacodyl [Dulcolax] Med 01/21/18 23:01 Active 5 mg PO DAILY PRN Cholecalciferol (Vitamin D3) [Vitamin D3] Med 01/22/18 09:00 Active 1,000 units PO DAILY Docusate Sodium [Colace] Med 01/21/18 23:01 Active 100 mg PO BID PRN Docusate Sodium/Sennosides [Senna Plus] Med 01/21/18 23:01 Active 1 tab PO BID PRN HYDROmorphone [Dilaudid] Med 01/21/18 23:01 Active 0.25 mg IVPUSH Q2H PRN LORazepam [Ativan] Med 01/22/18 09:00 Active 1 mg PO BID Leflunomide Med 01/22/18 09:00 Pending 20 mg PO DAILY Levothyroxine Med 01/22/18 06:00 Active 125 mcg PO ACBRK Ondansetron [Zofran] Med 01/21/18 23:01 Active 4 mg IV Q6H PRN Polyethylene Glycol 3350 [MiraLAX] Med 01/21/18 23:01 Active 17 gm PO DAILY PRN Promethazine [Phenergan] 12.5 mg Med 01/21/18 23:01 Active Sodium Chloride 0.9% [Normal Saline] 50 ml IV Q6H Saccharomyces Boulardii [Florastor] Med 01/22/18 09:00 Active 250 mg PO DAILY Sodium Chloride 0.9% [Saline Flush] Med 01/21/18 23:01 Active 10 ml FLUSH ASDIRECTED PRN Sucralfate [Carafate] Med 01/22/18 09:00 Active 1 gm PO QID atorvaSTATin Med 01/22/18 09:00 Pending 20 mg PO DAILY traZODone HCl [Trazodone HCl] Med 01/22/18 21:00 Pending 1 - 2 tab PO BEDTIME Saline Lock Insert [OM.PC] Routine Oth 01/21/18 23:01 Ordered Resuscitation Status Routine Resus Stat 01/21/18 23:01 Ordered Medication Orders Acetaminophen (Tylenol) 650 mg PO Q4H PRN PRN Reason: Pain (Mild 1-3)/fever Hydrocodone Bitart/Acetaminophen ([place] 325-5 Mg) 1 tab PO Q4H PRN PRN Reason: Pain (moderate 4-6) Albuterol/Ipratropium (Duoneb 3.0-0.5 Mg/3 Ml) 3 ml NEB Q4H PRN PRN Reason: Shortness Of Breath/wheezing Bisacodyl (Dulcolax) 5 mg PO DAILY PRN PRN Reason: Constipation Cholecalciferol (Vitamin D3) 1,000 units PO DAILY DORINDA Clopidogrel Bisulfate (Plavix) 75 mg PO DAILY DORINDA Dextrose/Water (Dextrose 50% In Water) 50 ml IVPUSH ASDIRECTED PRN PRN Reason: Hypoglycemia Docusate Sodium (Colace) 100 mg PO BID PRN PRN Reason: Constipation Enoxaparin Sodium (Lovenox) 40 mg SUBCUT DAILY [facility] Hydralazine HCl (Apresoline) 20 mg IVPUSH Q4H PRN PRN Reason: Hypertension Hydromorphone HCl (Dilaudid) 0.25 mg IVPUSH Q2H PRN PRN Reason: Pain (severe 7-10) Promethazine HCl 12.5 mg/ (Sodium Chloride) 50.5 mls @ 100 mls/hr IV Q6H PRN PRN Reason: Nausea/Vomiting Insulin Aspart (Novolog) 0 unit SUBCUT QIDACANDBED [facility]; Protocol Levothyroxine Sodium (Levothyroxine) 125 mcg PO ACBRK [facility] Lorazepam (Ativan) 1 mg PO BID [facility] Lorazepam (Ativan) 2 mg IVPUSH Q4H PRN PRN Reason: Seizures Magnesium Sulfate (Pharmacy To Dose - Magnesium Replacement) 1 dose .XX ASDIRECTED [facility] Metoprolol Tartrate (Lopressor) 5 mg IVPUSH Q4H PRN PRN Reason: Tachycardia Non-Formulary Medication (Atorvastatin) 20 mg PO DAILY [facility] Non-Formulary Medication (Leflunomide) 20 mg PO DAILY [facility] Non-Formulary Medication (Trazodone Hcl [Trazodone Hcl]) 1 - 2 tab PO BEDTIME [facility] Ondansetron HCl (Zofran) 4 mg IV Q6H PRN PRN Reason: Nausea/Vomiting Pantoprazole Sodium (Protonix) 40 mg PO DAILY@0700 [facility] Polyethylene Glycol (Miralax) 17 gm PO DAILY PRN PRN Reason: Constipation Potassium Chloride (Pharmacy To Dose - Potassium Replacement) 1 dose .XX ASDIRECTED [facility] Potassium Chloride (Klor-Con M20) 40 meq PO Q4H [facility] Stop: 01/22/18 04:01 Saccharomyces Boulardii (Florastor) 250 mg PO DAILY [facility] Senna/Docusate Sodium (Senna Plus) 1 tab PO BID PRN PRN Reason: Constipation Sodium Chloride (Saline Flush) 10 ml FLUSH ASDIRECTED PRN PRN Reason: Keep Vein Open Sucralfate (Carafate) 1 gm PO QID [facility] Labs: Laboratory Tests 01/21/18 01/21/18 01/21/18 Range/Units 21:36 21:41 21:41 WBC 9.05 (3.98-10.04) K/mm3 RBC 4.09 (3.98-5.22) M/mm3 Hgb 12.6 (11.2-15.7) gm/L Hct 39.0 (34.1-44.9) % MCV 95.4 H (79.4-94.8) fl MCH 30.8 (25.6-32.2) pg MCHC 32.3 (32.2-35.5) g/dl RDW Std Deviation 46.1 (36.4-46.3) fL Plt Count 249 (182-369) K/mm3 MPV 9.7 (9.4-12.3) fl Neutrophils % (Manual) 68 H (40-60) % Band Neutrophils % 0 (0-10) % Lymphocytes % (Manual) 21 (20-40) % Atypical Lymphs % 0 % Monocytes % (Manual) 3 (2-10) % Eosinophils % (Manual) 6 H (0.7-5.8) % Basophils % (Manual) 2 H (0.1-1.2) Platelet Estimate Adequate RBC Morph Comment Normal PT (8.0-13.0) SECONDS INR APTT (22-36) SECONDS Sodium 142 (136-145) mEq/L Potassium 3.8 (3.5-5.1) mEq/L Chloride 106 (98-107) mEq/L Carbon Dioxide 26 (21-32) mEq/L Anion Gap 13.8 (5-15) BUN 27 H (7-18) mg/dL Creatinine 0.8 (0.55-1.02) mg/dL Est Cr Clr Drug Dosing 53.97 mL/min Estimated GFR (MDRD) > 60 (>60) mL/min BUN/Creatinine Ratio 33.8 H (14-18) Glucose 97 (80-115) mg/dL POC Glucose 79 L (80-115) mg/dL Calcium 8.8 (8.5-10.1) mg/dL Total Bilirubin 0.2 (0.2-1.0) mg/dL AST 17 (15-37) U/L ALT 17 (14-59) U/L Alkaline Phosphatase 69 (46-116) U/L Total Protein 6.2 L (6.4-8.2) g/dl Albumin 3.2 L (3.4-5.0) g/dl Globulin 3.0 gm/dL Albumin/Globulin Ratio 1.1 (1-2) Amylase 53 (25-115) U/L 01/21/18 Range/Units 21:41 WBC (3.98-10.04) K/mm3 RBC (3.98-5.22) M/mm3 Hgb (11.2-15.7) gm/L Hct (34.1-44.9) % MCV (79.4-94.8) fl MCH (25.6-32.2) pg MCHC (32.2-35.5) g/dl RDW Std Deviation (36.4-46.3) fL Plt Count (182-369) K/mm3 MPV (9.4-12.3) fl Neutrophils % (Manual) (40-60) % Band Neutrophils % (0-10) % Lymphocytes % (Manual) (20-40) % Atypical Lymphs % % Monocytes % (Manual) (2-10) % Eosinophils % (Manual) (0.7-5.8) % Basophils % (Manual) (0.1-1.2) Platelet Estimate RBC Morph Comment PT 10.3 (8.0-13.0) SECONDS INR 0.96 APTT 26 (22-36) SECONDS Sodium (136-145) mEq/L Potassium (3.5-5.1) mEq/L Chloride (98-107) mEq/L Carbon Dioxide (21-32) mEq/L Anion Gap (5-15) BUN (7-18) mg/dL Creatinine (0.55-1.02) mg/dL Est Cr Clr Drug Dosing mL/min Estimated GFR (MDRD) (>60) mL/min BUN/Creatinine Ratio (14-18) Glucose (80-115) mg/dL POC Glucose (80-115) mg/dL Calcium (8.5-10.1) mg/dL Total Bilirubin (0.2-1.0) mg/dL AST (15-37) U/L ALT (14-59) U/L Alkaline Phosphatase (46-116) U/L Total Protein (6.4-8.2) g/dl Albumin (3.4-5.0) g/dl Globulin gm/dL Albumin/Globulin Ratio (1-2) Amylase (25-115) U/L Meds: Medications Generic Name Dose Route Start Last Admin Trade Name Freq PRN Reason Stop Dose Admin Acetaminophen 650 mg 01/21/18 23:01 Tylenol PO Q4H PRN Pain (Mild 1-3)/fever Hydrocodone Bitart/Acetaminophen 1 tab 01/21/18 23:01 [place] 325-5 Mg PO Q4H PRN Pain (moderate 4-6) Albuterol/Ipratropium 3 ml 01/21/18 23:01 Duoneb 3.0-0.5 Mg/3 Ml NEB Q4H PRN Shortness Of Breath/wheezing Bisacodyl 5 mg 01/21/18 23:01 Dulcolax PO DAILY PRN Constipation Cholecalciferol 1,000 units 01/22/18 09:00 Vitamin D3 PO DAILY [facility] Clopidogrel Bisulfate 75 mg 01/22/18 09:00 Plavix PO DAILY [facility] Dextrose/Water 50 ml 01/21/18 23:17 Dextrose 50% In Water IVPUSH ASDIRECTED PRN Hypoglycemia Docusate Sodium 100 mg 01/21/18 23:01 Colace PO BID PRN Constipation Enoxaparin Sodium 40 mg 01/22/18 09:00 Lovenox SUBCUT DAILY [facility] Hydralazine HCl 20 mg 01/21/18 23:12 Apresoline IVPUSH Q4H PRN Hypertension Hydromorphone HCl 0.25 mg 01/21/18 23:01 Dilaudid IVPUSH Q2H PRN Pain (severe 7-10) Promethazine HCl 12.5 mg/ 50.5 mls @ 100 mls/hr 01/21/18 23:01 Sodium Chloride IV Q6H PRN Nausea/Vomiting Insulin Aspart 0 unit 01/22/18 07:00 Novolog SUBCUT QIDACANDBED [facility] Protocol Levothyroxine Sodium 125 mcg 01/22/18 06:00 Levothyroxine PO ACBRK [facility] Lorazepam 1 mg 01/22/18 09:00 Ativan PO BID [facility] Lorazepam 2 mg 01/21/18 23:12 Ativan IVPUSH Q4H PRN Seizures Magnesium Sulfate 1 dose 01/21/18 23:15 Pharmacy To Dose - Magnesium Replacement .XX ASDIRECTED [facility] Metoprolol Tartrate 5 mg 01/21/18 23:12 Lopressor IVPUSH Q4H PRN Tachycardia Non-Formulary Medication 20 mg 01/22/18 09:00 Atorvastatin PO DAILY [facility] Non-Formulary Medication 20 mg 01/22/18 09:00 Leflunomide PO DAILY [facility] Non-Formulary Medication 1 - 2 tab 01/22/18 21:00 Trazodone Hcl [Trazodone Hcl] PO BEDTIME [facility] Ondansetron HCl 4 mg 01/21/18 23:01 Zofran IV Q6H PRN Nausea/Vomiting Pantoprazole Sodium 40 mg 01/22/18 07:00 Protonix PO DAILY@0700 [facility] Polyethylene Glycol 17 gm 01/21/18 23:01 Miralax PO DAILY PRN Constipation Potassium Chloride 1 dose 01/21/18 23:15 Pharmacy To Dose - Potassium Replacement .XX ASDIRECTED [facility] Potassium Chloride 40 meq 01/22/18 00:00 Klor-Con M20 PO 01/22/18 04:01 Q4H [facility] Saccharomyces Boulardii 250 mg 01/22/18 09:00 Florastor PO DAILY [facility] Senna/Docusate Sodium 1 tab 01/21/18 23:01 Senna Plus PO BID PRN Constipation Sodium Chloride 10 ml 01/21/18 23:01 Saline Flush FLUSH ASDIRECTED PRN Keep Vein Open Sucralfate 1 gm 01/22/18 09:00 Carafate PO QID [facility] Discontinued Medications Generic Name Dose Route Start Last Admin Trade Name Freq PRN Reason Stop Dose Admin Clopidogrel Bisulfate 150 mg 01/21/18 23:14 Plavix PO 01/21/18 23:15 ONETIME ONE Pantoprazole Sodium 40 mg 01/21/18 23:01 Protonix Iv IVPUSH 01/21/18 23:02 ONETIME ONE - Radiology Interpretation Free Text/Narrative:: CT scan of her head shows a subacute left parietal occipital lobe infarct but no mass effect or midline shift. She also has encephalomalacia of both of her frontal lobes consistent with old infarcts in the past. - Re-Assessments/Exams Free Text/Narrative Re-Assessment/Exam: 01/21/18 22:20 I spoke to [facility] to Dr. Garrett the neurologist and Dr. Paul radiology interventionalists regarding the patient's onset of symptoms and presentation NIH score. Due to the chronicity of her changes on her CT scan and previous symptoms like this back in October and the subacute to acute nature of her left parieto-occipital changes on CT scan he did not feel that they had much to offer her is far as intervention. Therefore they suggested we go ahead and admit her here to this hospital and do the workup. They suggested that we stop the aspirin and start her on some Plavix and make sure she is on a statin and her blood sugars are well-controlled. I spoke to Dr. Bowling regarding the patient and the recommendation of the [facility] physicians that we admit her here to this hospital for workup as well as preventive measures for her in the future. We spoke with the patient and she says she has advanced directives and she is a DO NOT RESUSCITATE patient. 01/21/18 22:51 I spoke to the patient's regarding her condition and her admission here to the hospital. He tells me that she is a DO NOT RESUSCITATE and that is his wishes as well. He indicates to me that he will, in the morning come see her and talk to the physicians regarding her status. Departure - Departure Time of Disposition: 22:28 Disposition: Admitted As Inpatient 66 Condition: Serious Clinical Impression: Expressive aphasia, Facial droop due to acute cerebrovascular accident (CVA) Cerebrovascular accident (CVA) Qualifiers: CVA mechanism: unspecified Qualified Code(s): I63.9 - Cerebral infarction, unspecified - Discharge Information ED Communication - ED Communication Date/Time Date: 01/21/18 Time Called: 22:29 - Discussed Case With (1) Discussed Case With (1): Admitting Provider Person/s Notified (1): Mallory Bowling (He will admit the patient for further evaluation and treatment) - My Orders Last 24 Hours: My Active Orders 01/21/18 Head wo Cont [CT] Routine 01/21/18 21:50 EKG Documentation Completion [RC] STAT 01/21/18 23:01 Admission Status [Patient Status] [ADT] Routine - Assessment/Plan Last 24 Hours: My Active Orders 01/21/18 Head wo Cont [CT] Routine 01/21/18 21:50 EKG Documentation Completion [RC] STAT 01/21/18 23:01 Admission Status [Patient Status] [ADT] Routine
[2018-01-21] MEDS ORDERED: Sodium Chloride 0.9% 10 ML Syringe FLUSH PRN (23:01)
[2018-01-21] MEDS ORDERED: HYDROmorphone 0.5 MG/0.5 ML SYRINGE IVPUSH PRN (23:01)
[2018-01-21] MEDS ORDERED: Polyethylene Glycol 3350 Powder 17 GM Packet PO PRN (23:01)
[2018-01-21] MEDS ORDERED: Pantoprazole 40 MG Vial IVPUSH ONE (23:01)
[2018-01-21] MEDS ORDERED: Acetaminophen/HYDROcodone 325-5 MG Tab PO PRN (23:01)
[2018-01-21] MEDS ORDERED: Bisacodyl 5 MG Tab PO PRN (23:01)
[2018-01-21] MEDS ORDERED: Acetaminophen 325 MG Tab PO PRN (23:01)
[2018-01-21] MEDS ORDERED: Ondansetron 4 MG/2 ML SDV IV PRN (23:01)
[2018-01-21] MEDS ORDERED: Docusate Sodium 100 MG Cap PO PRN (23:01)
[2018-01-21] MEDS ORDERED: Promethazine 12.5 MG in Sodium Chloride 0.9% 50 ML IV PRN (23:01)
[2018-01-21] MEDS ORDERED: Albuterol/Ipratropium 3.0-0.5 MG/3 ML Neb Soln NEB PRN (23:01)
[2018-01-21] MEDS ORDERED: LORazepam 2 MG/ML SDV IVPUSH PRN (23:12)
[2018-01-21] MEDS ORDERED: Metoprolol Tartrate 5 MG/5 ML SDV IVPUSH PRN (23:12)
[2018-01-21] MEDS ORDERED: hydrALAZINE 20 MG/ML SDV IVPUSH PRN (23:12)
[2018-01-21] MEDS ORDERED: Clopidogrel 75 MG Tab PO ONE (23:14)
--- NOTE | 2018-01-21 23:14 | PCM.HP ---
H&P History of Present Illness - General Date of Service: 01/21/18 Admit Problem/Dx: Admission Diagnosis/Problem Admission Diagnosis/Problem Ischemic stroke Source of Information: Patient, Family, Old Records, Provider, RN Notes Reviewed History Limitations: Reports: Other (facial droop and slurred speech) - History of Present Illness Initial Comments - Free Text/Narative: This is a 67 yo elderly white female with past medical hx/o AR, Impaired Hearing /Vision, HTN, HLD, Aneurysm, Asthma/COPD, PUD, OA/DJD, Osteoporosis, Anemia, Hypothyroidism, and Depression who comes in with sudden onset of slurred speech and facial asymmetry. Patient carries a hx/o multiple strokes and carotid atherosclerosis. Her most recent stroke episode was October of this year. Her head CT scan in ED shows no acute abnormal findings. Her initial labs in ED shows a fairly unremarkable CBC and coagulation studies. Her chemistry is remarkable for BUN of 27, Glucose of 97 but POC Glucose is 79, Total Protein of 6.2, and Albumin of 3.2. Head CT scan reports no acute abnormal findings. No Head and Neck CTA done in ED. Patient is being admitted for acute stroke. She is DNR/DNI. - Related Data Allergies/Adverse Reactions: Allergies Allergy/AdvReac Type Severity Reaction Status Date / Time Sulfa (Sulfonamide Allergy Severe Hives Verified 01/22/18 00:48 Antibiotics) Home Medications: Home Meds Citalopram Hydrobromide [Celexa] 40 mg PO DAILY 11/04/17 [History] LORazepam 1 mg PO BID 11/04/17 [History] Leflunomide 20 mg PO DAILY 11/04/17 [History] Levothyroxine Sodium [Synthroid] 125 mcg PO DAILY 11/04/17 [History] Omeprazole 40 mg PO DAILY 11/04/17 [History] Sucralfate 1 gm PO QID 11/04/17 [History] atorvaSTATin [Lipitor] 10 mg PO DAILY 11/04/17 [History] traZODone HCl [Trazodone HCl] 1 tab PO BEDTIME PRN 11/04/17 [History] Aspirin 81 mg PO DAILY 01/21/18 [History] Cholecalciferol (Vitamin D3) [Vitamin D3] 0 mg PO DAILY 01/21/18 [History] Lactobacillus Acidophilus [Acidophilus Lactobacillus] 1 cap PO DAILY 01/21/18 [ History] Past Medical History HEENT History: Reports: Allergic Rhinitis, Hard of Hearing, Impaired Vision, Sinusitis Other HEENT History: wears reading glasses Cardiovascular History: Reports: Aneurysm, High Cholesterol, Hypertension Respiratory History: Reports: Asthma, COPD Gastrointestinal History: Reports: Helicobacter Pylori, [employer] History: Reports: Musculoskeletal History: Reports: Osteoarthritis, Osteoporosis Neurological History: Reports: CVA Psychiatric History: Reports: Depression, Other (See Below) Endocrine/Metabolic History: Reports: Hypothyroidism Hematologic History: Reports: Anemia - Infectious Disease History Infectious Disease History: Reports: Shingles - Past Surgical History HEENT Surgical History: Reports: Cataract Surgery, Naso-Sinus Surgery Respiratory Surgical History: Reports: None GI Surgical History: Reports: Bariatric Procedure, Cholecystectomy Female Surgical History: Reports: Breast Implant, Breast Reconstruction, Breast Reduction, Hysterectomy, Tubal Ligation Neurological Surgical History: Reports: None Musculoskeletal Surgical History: Reports: Shoulder Surgery Social & Family History - Family History Family Medical History: Noncontributory - Tobacco Use Smoking Status *Q: Light Tobacco Smoker Years of Tobacco use: 50 Packs/Tins Daily: 0.5 Used Tobacco, but Quit: No Second Hand Smoke Exposure: No - Caffeine Use Caffeine Use: Reports: None Caffeine Use Comment: 1 cup/day - Alcohol Use Days Per Week of Alcohol Use: 0 - Recreational Drug Use Recreational Drug Use: No H&P Review of Systems - Review of Systems: Review Of Systems: See Below General: Denies: Fever, Chills, Malaise, Weakness HEENT: Reports: No Symptoms Pulmonary: Reports: No Symptoms Cardiovascular: Denies: Chest Pain, Palpitations, Dyspnea on Exertion Gastrointestinal: Denies: Abdominal Pain, Difficulty Swallowing, Nausea, Vomiting Genitourinary: Reports: No Symptoms Musculoskeletal: Reports: No Symptoms Skin: Denies: Cyanosis Psychiatric: Reports: No Symptoms Neurological: Reports: Trouble Speaking, Change in Speech, Other (facial droop) . Denies: Confusion, Difficulty Walking, Weakness, Gait Disturbance Hematologic/Lymphatic: Reports: No Symptoms Immunologic: Reports: No Symptoms Exam - Exam Exam: See Below - Vital Signs Vital Signs: Last Vital Signs Temp 36.7 C 01/21/18 21:31 Pulse 85 01/21/18 21:31 Resp 20 01/21/18 21:31 BP 123/77 01/21/18 21:31 Pulse Ox 91 L 01/21/18 21:31 Weight: 53.524 kg - Exam General: Alert, Cooperative, Other (facial asymmetry and her speech is slurred) HEENT: Conjunctiva Clear, EOMI, Hearing Intact, Nares Patent, Normal Nasal Septum, Posterior Pharynx Clear, Pupils Equal, Pupils Reactive, Other ( tonguevdeviated to the left). No: Mucosa Moist & [place] Neck: Supple, Trachea Midline, +2 Carotid Pulse wo Bruit Lungs: Clear to Auscultation, Normal Respiratory Effort Cardiovascular: Regular Rate, Regular Rhythm GI/Abdominal Exam: Normal Bowel Sounds, Soft, Non-Tender, No Organomegaly, No Distention, No Abnormal Bruit, No Mass (Female) Exam: Deferred Rectal (Female) Exam: Deferred Back Exam: Normal Inspection, Decreased Range of Motion Extremities: Normal Inspection, Normal Range of Motion, Non-Tender, No Pedal Edema, Normal Capillary Refill Peripheral Pulses: 2+: Posterior Tibial (L), Posterior Tibial (R), Dorsalis Pedis (L), Dorsalis Pedis (R) Skin: Warm, Dry, Intact Neuro Extensive - Mental Status: Oriented x3, Normal Cognition, Memory Intact Neuro Extensive - Motor, Sensory, Reflexes: CN II-XII Intact, Normal Gait Psychiatric: Alert, Normal Affect, Normal Mood - Patient Data Lab Results Last 24 hrs: Laboratory Results - last 24 hr 01/21/18 01/21/18 01/21/18 Range/Units 21:36 21:41 21:41 WBC 9.05 (3.98-10.04) K/mm3 RBC 4.09 (3.98-5.22) M/mm3 Hgb 12.6 (11.2-15.7) gm/L Hct 39.0 (34.1-44.9) % MCV 95.4 H (79.4-94.8) fl MCH 30.8 (25.6-32.2) pg MCHC 32.3 (32.2-35.5) g/dl RDW Std Deviation 46.1 (36.4-46.3) fL Plt Count 249 (182-369) K/mm3 MPV 9.7 (9.4-12.3) fl Neutrophils % (Manual) 68 H (40-60) % Band Neutrophils % 0 (0-10) % Lymphocytes % (Manual) 21 (20-40) % Atypical Lymphs % 0 % Monocytes % (Manual) 3 (2-10) % Eosinophils % (Manual) 6 H (0.7-5.8) % Basophils % (Manual) 2 H (0.1-1.2) Platelet Estimate Adequate RBC Morph Comment Normal PT (8.0-13.0) SECONDS INR APTT (22-36) SECONDS Sodium 142 (136-145) mEq/L Potassium 3.8 (3.5-5.1) mEq/L Chloride 106 (98-107) mEq/L Carbon Dioxide 26 (21-32) mEq/L Anion Gap 13.8 (5-15) BUN 27 H (7-18) mg/dL Creatinine 0.8 (0.55-1.02) mg/dL Est Cr Clr Drug Dosing 53.97 mL/min Estimated GFR (MDRD) > 60 (>60) mL/min BUN/Creatinine Ratio 33.8 H (14-18) Glucose 97 (80-115) mg/dL POC Glucose 79 L (80-115) mg/dL Calcium 8.8 (8.5-10.1) mg/dL Total Bilirubin 0.2 (0.2-1.0) mg/dL AST 17 (15-37) U/L ALT 17 (14-59) U/L Alkaline Phosphatase 69 (46-116) U/L Total Protein 6.2 L (6.4-8.2) g/dl Albumin 3.2 L (3.4-5.0) g/dl Globulin 3.0 gm/dL Albumin/Globulin Ratio 1.1 (1-2) Amylase 53 (25-115) U/L 01/21/18 Range/Units 21:41 WBC (3.98-10.04) K/mm3 RBC (3.98-5.22) M/mm3 Hgb (11.2-15.7) gm/L Hct (34.1-44.9) % MCV (79.4-94.8) fl MCH (25.6-32.2) pg MCHC (32.2-35.5) g/dl RDW Std Deviation (36.4-46.3) fL Plt Count (182-369) K/mm3 MPV (9.4-12.3) fl Neutrophils % (Manual) (40-60) % Band Neutrophils % (0-10) % Lymphocytes % (Manual) (20-40) % Atypical Lymphs % % Monocytes % (Manual) (2-10) % Eosinophils % (Manual) (0.7-5.8) % Basophils % (Manual) (0.1-1.2) Platelet Estimate RBC Morph Comment PT 10.3 (8.0-13.0) SECONDS INR 0.96 APTT 26 (22-36) SECONDS Sodium (136-145) mEq/L Potassium (3.5-5.1) mEq/L Chloride (98-107) mEq/L Carbon Dioxide (21-32) mEq/L Anion Gap (5-15) BUN (7-18) mg/dL Creatinine (0.55-1.02) mg/dL Est Cr Clr Drug Dosing mL/min Estimated GFR (MDRD) (>60) mL/min BUN/Creatinine Ratio (14-18) Glucose (80-115) mg/dL POC Glucose (80-115) mg/dL Calcium (8.5-10.1) mg/dL Total Bilirubin (0.2-1.0) mg/dL AST (15-37) U/L ALT (14-59) U/L Alkaline Phosphatase (46-116) U/L Total Protein (6.4-8.2) g/dl Albumin (3.4-5.0) g/dl Globulin gm/dL Albumin/Globulin Ratio (1-2) Amylase (25-115) U/L Result Diagrams: 01/22/18 06:09 01/22/18 06:09 Problem List Initiated/Reviewed/Updated: Yes Orders Last 24hrs: Active Orders 24 hr Category Date Time Status Admission Status [Patient Status] [ADT] Routine ADT 01/21/18 23:01 Active Cardiac Monitoring [RC] CONTINUOUS Care 01/21/18 23:02 Ordered EKG Documentation Completion [RC] STAT Care 01/21/18 21:50 Active Height and Weight [RC] UPON Care 01/21/18 23:01 Ordered Intake and Output [RC] QSHIFT Care 01/21/18 23:01 Ordered Oxygen Therapy [RC] PRN Care 01/21/18 23:01 Ordered RT Aerosol Therapy [RC] ASDIRECTED Care 01/21/18 23:04 Ordered Up With Assistance [RC] ASDIRECTED Care 01/21/18 23:01 Ordered Up ad [place] [RC] ASDIRECTED Care 01/21/18 23:01 Ordered VTE/DVT Education [RC] PER UNIT ROUTINE Care 01/21/18 23:01 Ordered Vital Signs [RC] Q4H Care 01/21/18 23:01 Ordered Consult to Case Management [CONS] Routine Cons 01/21/18 23:04 Ordered Consult to Adult Probation Officer [CONS] Routine Cons 01/21/18 23:04 Ordered Consult to Spiritual Care [CONS] Routine Cons 01/21/18 23:04 Ordered OT Evaluation and Treatment [CONS] Routine Cons 01/21/18 23:04 Ordered PT Evaluation and Treatment [CONS] Routine Cons 01/21/18 23:04 Ordered SHANK BURNISHER Evaluation and Treatment [CONS] Routine Cons 01/21/18 23:04 Ordered Heart Healthy Diet [DIET] Diet 01/21/18 Dinner Ordered Head wo Cont [CT] Routine Exams 01/21/18 Taken BASIC METABOLIC PANEL,BMP [CHEM] AM Lab 01/22/18 05:11 Ordered BASIC METABOLIC PANEL,BMP [CHEM] AM Lab 01/23/18 05:11 Ordered BASIC METABOLIC PANEL,BMP [CHEM] AM Lab 01/24/18 05:11 Ordered CBC WITH AUTO DIFF [HEME] AM Lab 01/22/18 05:11 Ordered CULTURE URINE [RM] Stat Lab 01/21/18 23:04 Ordered MAGNESIUM [CHEM] AM Lab 01/22/18 05:11 Ordered MAGNESIUM [CHEM] AM Lab 01/23/18 05:11 Ordered MAGNESIUM [CHEM] AM Lab 01/24/18 05:11 Ordered Acetaminophen [Tylenol] Med 01/21/18 23:01 Ordered 650 mg PO Q4H PRN Acetaminophen/HYDROcodone [Heath 325-5 MG] Med 01/21/18 23:01 Ordered 1 tab PO Q4H PRN Albuterol/Ipratropium [DuoNeb 3.0-0.5 MG/3 ML] Med 01/21/18 23:01 Ordered 3 ml NEB Q4H PRN Bisacodyl [Dulcolax] Med 01/21/18 23:01 Ordered 5 mg PO DAILY PRN Cholecalciferol (Vitamin D3) [Vitamin D3] Med 01/22/18 09:00 Ordered 1,000 mg PO DAILY Docusate Sodium [Colace] Med 01/21/18 23:01 Ordered 100 mg PO BID PRN Docusate Sodium/Sennosides [Senna Plus] Med 01/21/18 23:01 Ordered 1 tab PO BID PRN Enoxaparin [Lovenox] Med 01/22/18 09:00 Ordered 30 mg SUBCUT DAILY HYDROmorphone [Dilaudid] Med 01/21/18 23:01 Ordered 0.25 mg IVPUSH Q2H PRN LORazepam [Ativan] Med 01/22/18 09:00 Ordered 1 mg PO BID LORazepam [Ativan] Med 01/21/18 23:12 Ordered 2 mg IVPUSH Q4H PRN Lactobacillus Acidophilus [Acidophilus Lactobacillus] Med 01/22/18 09:00 Ordered 1 cap PO DAILY Leflunomide Med 01/22/18 09:00 Ordered 20 mg PO DAILY Levothyroxine Med 01/22/18 09:00 Ordered 125 mcg PO DAILY Magnesium Rep Pharmacy to Dose [Pharmacy to Dose - Med 01/21/18 23:15 Ordered Magnesium Replacement] 1 dose .XX ASDIRECTED Metoprolol Tartrate [Lopressor] Med 01/21/18 23:12 Ordered 5 mg IVPUSH Q4H PRN Omeprazole [Omeprazole] Med 01/22/18 09:00 Ordered 40 mg PO DAILY Ondansetron [Zofran] Med 01/21/18 23:01 Ordered 4 mg IV Q6H PRN Pantoprazole [ProTONIX IV] Med 01/21/18 23:01 Once 40 mg IVPUSH ONETIME ONE Polyethylene Glycol 3350 [MiraLAX] Med 01/21/18 23:01 Ordered 17 gm PO DAILY PRN Potassium Rep Pharmacy to Dose [Pharmacy to Dose - Med 01/21/18 23:15 Ordered Potassium Replacement] 1 dose .XX ASDIRECTED Promethazine [Phenergan] 12.5 mg Med 01/21/18 23:01 Ordered Sodium Chloride 0.9% [Normal Saline] 50 ml IV Q6H Sodium Chloride 0.9% [Saline Flush] Med 01/21/18 23:01 Ordered 10 ml FLUSH ASDIRECTED PRN Sucralfate [Carafate] Med 01/22/18 09:00 Ordered 1 gm PO QID atorvaSTATin Med 01/22/18 09:00 Ordered 20 mg PO DAILY hydrALAZINE [Apresoline] Med 01/21/18 23:12 Ordered 20 mg IVPUSH Q4H PRN traZODone HCl [Trazodone HCl] Med 01/22/18 21:00 Ordered 1 - 2 tab PO BEDTIME Saline Lock Insert [OM.PC] Routine Oth 01/21/18 23:01 Ordered Resuscitation Status Routine Resus Stat 01/21/18 23:01 Ordered Medication Orders Acetaminophen (Tylenol) 650 mg PO Q4H PRN PRN Reason: Pain (Mild 1-3)/fever Hydrocodone Bitart/Acetaminophen (Heath 325-5 Mg) 1 tab PO Q4H PRN PRN Reason: Pain (moderate 4-6) Albuterol/Ipratropium (Duoneb 3.0-0.5 Mg/3 Ml) 3 ml NEB Q4H PRN PRN Reason: Shortness Of Breath/wheezing Bisacodyl (Dulcolax) 5 mg PO DAILY PRN PRN Reason: Constipation Docusate Sodium (Colace) 100 mg PO BID PRN PRN Reason: Constipation Enoxaparin Sodium (Lovenox) 30 mg SUBCUT DAILY DORINDA Hydromorphone HCl (Dilaudid) 0.25 mg IVPUSH Q2H PRN PRN Reason: Pain (severe 7-10) Promethazine HCl 12.5 mg/ (Sodium Chloride) 50.5 mls @ 100 mls/hr IV Q6H PRN PRN Reason: Nausea/Vomiting Levothyroxine Sodium (Levothyroxine) 125 mcg PO ACBRK DORINDA Lorazepam (Ativan) 1 mg PO BID DORINDA Non-Formulary Medication (Atorvastatin) 20 mg PO DAILY DORINDA Non-Formulary Medication (Cholecalciferol (Vitamin D3) [Vitamin D3]) 1,000 mg PO DAILY DORINDA Non-Formulary Medication (Lactobacillus Acidophilus [Acidophilus Lactobacillus] ) 1 cap PO DAILY DORINDA Non-Formulary Medication (Leflunomide) 20 mg PO DAILY DORINDA Non-Formulary Medication (Omeprazole [Omeprazole]) 40 mg PO DAILY DORINDA Non-Formulary Medication (Trazodone Hcl [Trazodone Hcl]) 1 - 2 tab PO BEDTIME DORINDA Ondansetron HCl (Zofran) 4 mg IV Q6H PRN PRN Reason: Nausea/Vomiting Pantoprazole Sodium (Protonix Iv) 40 mg IVPUSH ONETIME ONE Stop: 01/21/18 23:02 Polyethylene Glycol (Miralax) 17 gm PO DAILY PRN PRN Reason: Constipation Senna/Docusate Sodium (Senna Plus) 1 tab PO BID PRN PRN Reason: Constipation Sodium Chloride (Saline Flush) 10 ml FLUSH ASDIRECTED PRN PRN Reason: Keep Vein Open Sucralfate (Carafate) 1 gm PO QID [facility] Assessment/Plan Comment:: Assessment/Plan: Acute: Stroke - Risk Factors: Hx/o Multiple CVAs, Carotid Atherosclerosis, HTN, HLD and Active Smoker - Mild aphasia and facial Asymmetry - She is only on ASA - Head CT scan shows no acute abnormal findings; No Head/Neck CTA done in ED - Case referred to on-call Neurology in [place] - Recommendations: no need for lateral transfer or invasive treatment; if on ASA d/c it and start plavix - D/c'd ASA and gave one time dose of 300 mg po Plavix x1 and then 75 po mg daily to start in AM - Offered tPA treatment since she still symptomatic but refused it - Lipid and Thyroid panel in AM - Accu-check QID AC/HS - SHANK BURNISHER/PT/OT eval - Aspiration and Fall Protocol Active Smoker - 50 years of smoking - Advised to quit smoking Chronic: AR Impaired Hearing/Vision HTN HLD Aneurysm Asthma/COPD PUD OA/DJD Osteoporosis Anemia Hypothyroidism Hx/o CVA Depression Plan: Admit to the floor with Tele Resume Home Meds except ASA Sips of water only after 300 mg po of plavix DVT/GI PPx:Lovenox SubQ and H2B SHANK BURNISHER/PT/OT eval SW/CM for d/c planning Additional orders as above Code status: DNR/DNI :
[2018-01-21] MEDS ORDERED: 50% Dextrose in Water 50 ML Syringe IVPUSH PRN (23:17)
[2018-01-22] MEDS: Potassium Chloride 20 MEQ Tab.ER PO SCH ×2 (00:03→05:32)
[2018-01-22] MEDS: Pantoprazole 40 MG Tab.CR PO SCH (06:27)
[2018-01-22] MEDS: Levothyroxine 125 MCG Tab PO SCH (06:27)
[2018-01-22] MEDS: Insulin Aspart 100 Units/ML 3 ML Pen SUBCUT SCH ×3 (06:28→17:14)
--- NOTE | 2018-01-22 07:02 | PCM.PN ---
- General Info Date of Service: 01/22/18 Admission Dx/Problem (Free Text): Admission Diagnosis/Problem Admission Diagnosis/Problem Ischemic stroke Subjective Update: Follow Up Functional Status: Reports: Pain Controlled, Ambulating, Urinating, New Symptoms - Review of Systems General: Denies: Fever, Weakness, Fatigue, Chills HEENT: Reports: No Symptoms Pulmonary: Denies: Shortness of Breath Cardiovascular: Denies: Chest Pain, Orthopnea, PND, Edema Gastrointestinal: Denies: Abdominal Pain, Difficulty Swallowing, Nausea, Vomiting Genitourinary: Reports: No Symptoms Musculoskeletal: Denies: Neck Pain, Back Pain Skin: Denies: Cyanosis, Jaundice, Mottled, Pallor, Bruising Neurological: Reports: Trouble Speaking. Denies: Confusion, Dizziness, Syncope , Tremors, Difficulty Walking, Weakness, Gait Disturbance Psychiatric: Denies: Depression, Mood Lability, Anxiety, Suicidal Ideation Systems Review Comment:: No significant overnight or acute issues. She slept really well last night and her facial asymmetry seems to be better. However her speech is still somewhat garbled. She just had her CARPENTER REPAIR eval and passed it. She has no new complaints. - Patient Data Vitals - Most Recent: Last Vital Signs Temp 36.6 C 01/22/18 03:19 Pulse 72 01/22/18 03:19 Resp 20 01/22/18 03:19 BP 114/67 01/22/18 03:19 Pulse Ox 96 01/22/18 03:19 Weight - Most Recent: 53.524 kg I&O - Last 24 Hours: Intake & Output 01/21/18 01/22/18 01/22/18 22:59 06:59 14:59 Intake Total 50 Output Total 400 Balance -350 Lab Results Last 24 Hours: Laboratory Results - last 24 hr 01/21/18 01/21/18 01/21/18 Range/Units 21:36 21:37 21:41 WBC 9.05 (3.98-10.04) K/mm3 RBC 4.09 (3.98-5.22) M/mm3 Hgb 12.6 (11.2-15.7) gm/L Hct 39.0 (34.1-44.9) % MCV 95.4 H (79.4-94.8) fl MCH 30.8 (25.6-32.2) pg MCHC 32.3 (32.2-35.5) g/dl RDW Std Deviation 46.1 (36.4-46.3) fL Plt Count 249 (182-369) K/mm3 MPV 9.7 (9.4-12.3) fl Neut % (Auto) (34.0-71.1) % Lymph % (Auto) (19.3-51.7) % [place] % (Auto) (4.7-12.5) % Eos % (Auto) (0.7-5.8) Baso % (Auto) (0.1-1.2) % Neut # (Auto) (1.56-6.13) K/mm3 Lymph # (Auto) (1.18-3.74) K/mm3 [place] # (Auto) (0.24-0.36) K/mm3 Eos # (Auto) (0.04-0.36) K/mm3 Baso # (Auto) (0.01-0.08) K/mm3 Neutrophils % (Manual) 68 H (40-60) % Band Neutrophils % 0 (0-10) % Lymphocytes % (Manual) 21 (20-40) % Atypical Lymphs % 0 % Monocytes % (Manual) 3 (2-10) % Eosinophils % (Manual) 6 H (0.7-5.8) % Basophils % (Manual) 2 H (0.1-1.2) Platelet Estimate Adequate RBC Morph Comment Normal PT (8.0-13.0) SECONDS INR APTT (22-36) SECONDS Sodium (136-145) mEq/L Potassium (3.5-5.1) mEq/L Chloride (98-107) mEq/L Carbon Dioxide (21-32) mEq/L Anion Gap (5-15) BUN (7-18) mg/dL Creatinine (0.55-1.02) mg/dL Est Cr Clr Drug Dosing mL/min Estimated GFR (MDRD) (>60) mL/min BUN/Creatinine Ratio (14-18) Glucose (80-115) mg/dL POC Glucose 79 L (80-115) mg/dL Calcium (8.5-10.1) mg/dL Total Bilirubin (0.2-1.0) mg/dL AST (15-37) U/L ALT (14-59) U/L Alkaline Phosphatase (46-116) U/L Total Protein (6.4-8.2) g/dl Albumin (3.4-5.0) g/dl Globulin gm/dL Albumin/Globulin Ratio (1-2) Amylase (25-115) U/L Free T4 1.29 (0.76-1.46) ng/dL TSH 3rd Generation 1.265 (0.358-3.74) uIU/mL Urine Color (Yellow) Urine Appearance (Clear) Urine pH (5.0-8.0) Ur Specific [place] (1.005-1.030) Urine Protein (Negative) Urine Glucose (UA) (Negative) Urine Ketones (Negative) Urine Occult Blood (Negative) Urine Nitrite (Negative) Urine Bilirubin (Negative) Urine Urobilinogen (0.2-1.0) Ur Leukocyte Esterase (Negative) 01/21/18 01/21/18 01/22/18 Range/Units 21:41 21:41 06:06 WBC (3.98-10.04) K/mm3 RBC (3.98-5.22) M/mm3 Hgb (11.2-15.7) gm/L Hct (34.1-44.9) % MCV (79.4-94.8) fl MCH (25.6-32.2) pg MCHC (32.2-35.5) g/dl RDW Std Deviation (36.4-46.3) fL Plt Count (182-369) K/mm3 MPV (9.4-12.3) fl Neut % (Auto) (34.0-71.1) % Lymph % (Auto) (19.3-51.7) % Crow[place] % (Auto) (4.7-12.5) % Eos % (Auto) (0.7-5.8) Baso % (Auto) (0.1-1.2) % Neut # (Auto) (1.56-6.13) K/mm3 Lymph # (Auto) (1.18-3.74) K/mm3 [place] # (Auto) (0.24-0.36) K/mm3 Eos # (Auto) (0.04-0.36) K/mm3 Baso # (Auto) (0.01-0.08) K/mm3 Neutrophils % (Manual) (40-60) % Band Neutrophils % (0-10) % Lymphocytes % (Manual) (20-40) % Atypical Lymphs % % Monocytes % (Manual) (2-10) % Eosinophils % (Manual) (0.7-5.8) % Basophils % (Manual) (0.1-1.2) Platelet Estimate RBC Morph Comment PT 10.3 (8.0-13.0) SECONDS INR 0.96 APTT 26 (22-36) SECONDS Sodium 142 (136-145) mEq/L Potassium 3.8 (3.5-5.1) mEq/L Chloride 106 (98-107) mEq/L Carbon Dioxide 26 (21-32) mEq/L Anion Gap 13.8 (5-15) BUN 27 H (7-18) mg/dL Creatinine 0.8 (0.55-1.02) mg/dL Est Cr Clr Drug Dosing 53.97 mL/min Estimated GFR (MDRD) > 60 (>60) mL/min BUN/Creatinine Ratio 33.8 H (14-18) Glucose 97 (80-115) mg/dL POC Glucose 95 (80-115) mg/dL Calcium 8.8 (8.5-10.1) mg/dL Total Bilirubin 0.2 (0.2-1.0) mg/dL AST 17 (15-37) U/L ALT 17 (14-59) U/L Alkaline Phosphatase 69 (46-116) U/L Total Protein 6.2 L (6.4-8.2) g/dl Albumin 3.2 L (3.4-5.0) g/dl Globulin 3.0 gm/dL Albumin/Globulin Ratio 1.1 (1-2) Amylase 53 (25-115) U/L Free T4 (0.76-1.46) ng/dL TSH 3rd Generation (0.358-3.74) uIU/mL Urine Color (Yellow) Urine Appearance (Clear) Urine pH (5.0-8.0) Ur Specific [place] (1.005-1.030) Urine Protein (Negative) Urine Glucose (UA) (Negative) Urine Ketones (Negative) Urine Occult Blood (Negative) Urine Nitrite (Negative) Urine Bilirubin (Negative) Urine Urobilinogen (0.2-1.0) Ur Leukocyte Esterase (Negative) 01/22/18 01/22/18 Range/Units 06:09 06:35 WBC 6.64 (3.98-10.04) K/mm3 RBC 3.98 (3.98-5.22) M/mm3 Hgb 12.1 (11.2-15.7) gm/L Hct 38.2 (34.1-44.9) % MCV 96.0 H (79.4-94.8) fl MCH 30.4 (25.6-32.2) pg MCHC 31.7 L (32.2-35.5) g/dl RDW Std Deviation 45.8 (36.4-46.3) fL Plt Count 225 (182-369) K/mm3 MPV 9.7 (9.4-12.3) fl Neut % (Auto) 58.8 (34.0-71.1) % Lymph % (Auto) 22.1 (19.3-51.7) % [place] % (Auto) 10.5 (4.7-12.5) % Eos % (Auto) 7.5 H (0.7-5.8) Baso % (Auto) 0.8 (0.1-1.2) % Neut # (Auto) 3.90 (1.56-6.13) K/mm3 Lymph # (Auto) 1.47 (1.18-3.74) K/mm3 [place] # (Auto) 0.70 H (0.24-0.36) K/mm3 Eos # (Auto) 0.50 H (0.04-0.36) K/mm3 Baso # (Auto) 0.05 (0.01-0.08) K/mm3 Neutrophils % (Manual) (40-60) % Band Neutrophils % (0-10) % Lymphocytes % (Manual) (20-40) % Atypical Lymphs % % Monocytes % (Manual) (2-10) % Eosinophils % (Manual) (0.7-5.8) % Basophils % (Manual) (0.1-1.2) Platelet Estimate RBC Morph Comment PT (8.0-13.0) SECONDS INR APTT (22-36) SECONDS Sodium (136-145) mEq/L Potassium (3.5-5.1) mEq/L Chloride (98-107) mEq/L Carbon Dioxide (21-32) mEq/L Anion Gap (5-15) BUN (7-18) mg/dL Creatinine (0.55-1.02) mg/dL Est Cr Clr Drug Dosing mL/min Estimated GFR (MDRD) (>60) mL/min BUN/Creatinine Ratio (14-18) Glucose (80-115) mg/dL POC Glucose (80-115) mg/dL Calcium (8.5-10.1) mg/dL Total Bilirubin (0.2-1.0) mg/dL AST (15-37) U/L ALT (14-59) U/L Alkaline Phosphatase (46-116) U/L Total Protein (6.4-8.2) g/dl Albumin (3.4-5.0) g/dl Globulin gm/dL Albumin/Globulin Ratio (1-2) Amylase (25-115) U/L Free T4 (0.76-1.46) ng/dL TSH 3rd Generation (0.358-3.74) uIU/mL Urine Color Yellow (Yellow) Urine Appearance Clear (Clear) Urine pH 5.5 (5.0-8.0) Ur Specific [place] 1.020 (1.005-1.030) Urine Protein Negative (Negative) Urine Glucose (UA) Negative (Negative) Urine Ketones Negative (Negative) Urine Occult Blood Negative (Negative) Urine Nitrite Negative (Negative) Urine Bilirubin Negative (Negative) Urine Urobilinogen 0.2 (0.2-1.0) Ur Leukocyte Esterase Negative (Negative) Med Orders - Current: Current Medications Acetaminophen (Tylenol) 650 mg PO Q4H PRN PRN Reason: Pain (Mild 1-3)/fever Hydrocodone Bitart/Acetaminophen ([place] 325-5 Mg) 1 tab PO Q4H PRN PRN Reason: Pain (moderate 4-6) Albuterol/Ipratropium (Duoneb 3.0-0.5 Mg/3 Ml) 3 ml NEB Q4H PRN PRN Reason: Shortness Of Breath/wheezing Bisacodyl (Dulcolax) 5 mg PO DAILY PRN PRN Reason: Constipation Cholecalciferol (Vitamin D3) 1,000 units PO DAILY [facility] Clopidogrel Bisulfate (Plavix) 75 mg PO DAILY [facility] Dextrose/Water (Dextrose 50% In Water) 50 ml IVPUSH ASDIRECTED PRN PRN Reason: Hypoglycemia Docusate Sodium (Colace) 100 mg PO BID PRN PRN Reason: Constipation Enoxaparin Sodium (Lovenox) 40 mg SUBCUT DAILY [facility] Famotidine (Pepcid) 20 mg IVPUSH BID [facility] Hydralazine HCl (Apresoline) 20 mg IVPUSH Q4H PRN PRN Reason: Hypertension Hydromorphone HCl (Dilaudid) 0.25 mg IVPUSH Q2H PRN PRN Reason: Pain (severe 7-10) Promethazine HCl 12.5 mg/ (Sodium Chloride) 50.5 mls @ 100 mls/hr IV Q6H PRN PRN Reason: Nausea/Vomiting Insulin Aspart (Novolog) 0 unit SUBCUT QIDACANDBED [facility]; Protocol Last Admin: 01/22/18 06:28 Dose: Not Given Levothyroxine Sodium (Levothyroxine) 125 mcg PO ACBRK [facility] Last Admin: 01/22/18 06:27 Dose: 125 mcg Lorazepam (Ativan) 1 mg PO BID [facility] Lorazepam (Ativan) 2 mg IVPUSH Q4H PRN PRN Reason: Seizures Magnesium Sulfate (Pharmacy To Dose - Magnesium Replacement) 1 dose .XX ASDIRECTED [facility] Metoprolol Tartrate (Lopressor) 5 mg IVPUSH Q4H PRN PRN Reason: Tachycardia Non-Formulary Medication (Atorvastatin) 20 mg PO DAILY [facility] Non-Formulary Medication (Leflunomide) 20 mg PO DAILY [facility] Non-Formulary Medication (Trazodone Hcl [Trazodone Hcl]) 1 - 2 tab PO BEDTIME [facility] Ondansetron HCl (Zofran) 4 mg IV Q6H PRN PRN Reason: Nausea/Vomiting Pantoprazole Sodium (Protonix) 40 mg PO DAILY@0700 [facility] Last Admin: 01/22/18 06:27 Dose: 40 mg Polyethylene Glycol (Miralax) 17 gm PO DAILY PRN PRN Reason: Constipation Potassium Chloride (Pharmacy To Dose - Potassium Replacement) 1 dose .XX ASDIRECTED [facility] Saccharomyces Boulardii (Florastor) 250 mg PO DAILY [facility] Senna/Docusate Sodium (Senna Plus) 1 tab PO BID PRN PRN Reason: Constipation Sodium Chloride (Saline Flush) 10 ml FLUSH ASDIRECTED PRN PRN Reason: Keep Vein Open Sucralfate (Carafate) 1 gm PO QID [facility] Discontinued Medications Clopidogrel Bisulfate (Plavix) 150 mg PO ONETIME ONE Stop: 01/21/18 23:15 Last Admin: 01/21/18 23:57 Dose: 150 mg Pantoprazole Sodium (Protonix Iv) 40 mg IVPUSH ONETIME ONE Stop: 01/21/18 23:02 Last Admin: 01/21/18 23:57 Dose: 40 mg Potassium Chloride (Klor-Con M20) 40 meq PO Q4H [facility] Stop: 01/22/18 04:01 Last Admin: 01/22/18 05:32 Dose: Not Given - Exam General: Alert, Oriented, Cooperative, No Acute Distress HEENT: Pupils Equal, Pupils Reactive, EOMI, Mucous Membr. Moist/[place] Neck: Supple, Trachea Midline, No JVD Lungs: Clear to Auscultation, Normal Respiratory Effort Cardiovascular: Regular Rate, Regular Rhythm GI/Abdominal Exam: Normal Bowel Sounds, Soft, Non-Tender, No Organomegaly, No Distention, No Abnormal Bruit, No Mass (Female) Exam: Deferred Back Exam: Normal Inspection, Decreased Range of Motion Extremities: Normal Inspection, Normal Range of Motion, Non-Tender, No Pedal Edema, Normal Capillary Refill Peripheral Pulses: 2+: Dorsalis Pedis (L), Dorsalis Pedis (R) Skin: Warm, Dry, Intact Neurological: No New Focal Deficit Psy/Mental Status: Alert, Normal Affect, Normal Mood - Problem List Review Problem List Initiated/Reviewed/Updated: Yes - My Orders Last 24 Hours: My Active Orders 01/21/18 23:01 Intake and Output [RC] 04,16 Oxygen Therapy [RC] PRN Up With Assistance [RC] ASDIRECTED Up ad [place] [RC] ASDIRECTED VTE/DVT Education [RC] PER UNIT ROUTINE Vital Signs [RC] Q4HR Acetaminophen [Tylenol] 650 mg PO Q4H PRN Acetaminophen/HYDROcodone [[place] 325-5 MG] 1 tab PO Q4H PRN Albuterol/Ipratropium [DuoNeb 3.0-0.5 MG/3 ML] 3 ml NEB Q4H PRN Bisacodyl [Dulcolax] 5 mg PO DAILY PRN Docusate Sodium [Colace] 100 mg PO BID PRN Docusate Sodium/Sennosides [Senna Plus] 1 tab PO BID PRN HYDROmorphone [Dilaudid] 0.25 mg IVPUSH Q2H PRN Ondansetron [Zofran] 4 mg IV Q6H PRN Polyethylene Glycol 3350 [MiraLAX] 17 gm PO DAILY PRN Promethazine [Phenergan] 12.5 mg Sodium Chloride 0.9% [Normal Saline] 50 ml IV Q6H Sodium Chloride 0.9% [Saline Flush] 10 ml FLUSH ASDIRECTED PRN Saline Lock Insert [OM.PC] Routine Resuscitation Status Routine 01/21/18 23:02 Cardiac Monitoring [RC] CONTINUOUS 01/21/18 23:04 RT Aerosol Therapy [RC] ASDIRECTED Consult to Case Management [CONS] Routine Consult to Solution Professional [CONS] Routine Consult to Spiritual Care [CONS] Routine OT Evaluation and Treatment [CONS] Routine PT Evaluation and Treatment [CONS] Routine CARPENTER REPAIR Evaluation and Treatment [CONS] Routine CULTURE URINE [RM] Stat 01/21/18 23:12 LORazepam [Ativan] 2 mg IVPUSH Q4H PRN Metoprolol Tartrate [Lopressor] 5 mg IVPUSH Q4H PRN hydrALAZINE [Apresoline] 20 mg IVPUSH Q4H PRN 01/21/18 23:15 Magnesium Rep Pharmacy to Dose [Pharmacy to Dose - Magnesium Replacement] 1 dose .XX ASDIRECTED Potassium Rep Pharmacy to Dose [Pharmacy to Dose - Potassium Replacement] 1 dose .XX ASDIRECTED 01/21/18 23:16 Accu Check [Blood Glucose Check, Bedside] [RC] QIDACANDBED 01/21/18 23:17 Dextrose 50% in Water 50 ml IVPUSH ASDIRECTED PRN 01/22/18 06:00 Levothyroxine 125 mcg PO ACBRK 01/22/18 06:09 BASIC METABOLIC PANEL,BMP [CHEM] AM LIPID PANEL [CHEM] AM MAGNESIUM [CHEM] AM 01/22/18 06:35 URINALYSIS W/MICROSCOPIC [UA W/MICROSCOPIC] [URIN] Routine 01/22/18 07:00 Insulin Aspart [NovoLOG] See Protocol SUBCUT QIDACANDBED Pantoprazole [ProTONIX] 40 mg PO DAILY@0700 01/22/18 09:00 Cholecalciferol (Vitamin D3) [Vitamin D3] 1,000 units PO DAILY Clopidogrel [Plavix] 75 mg PO DAILY Enoxaparin [Lovenox] 40 mg SUBCUT DAILY Famotidine [Pepcid] 20 mg IVPUSH BID LORazepam [Ativan] 1 mg PO BID Leflunomide 20 mg PO DAILY Saccharomyces Boulardii [Florastor] 250 mg PO DAILY Sucralfate [Carafate] 1 gm PO QID atorvaSTATin 20 mg PO DAILY 01/22/18 21:00 traZODone HCl [Trazodone HCl] 1 - 2 tab PO BEDTIME 01/22/18 Breakfast NPO Now [Nothing per Oral Now Diet] [DIET] 01/23/18 05:11 BASIC METABOLIC PANEL,BMP [CHEM] AM MAGNESIUM [CHEM] AM 01/24/18 05:11 BASIC METABOLIC PANEL,BMP [CHEM] AM MAGNESIUM [CHEM] AM - Plan Plan:: Assessment/Plan: Acute: Stroke - Risk Factors: Hx/o Multiple CVAs, Carotid Atherosclerosis, HTN, HLD and Active Smoker - Mild aphasia and facial Asymmetry; improved - She is only on ASA - Head CT scan shows no acute abnormal findings; No Head/Neck CTA done in ED - Case referred to on-call Neurology in [place] - Recommendations: no need for lateral transfer or invasive treatment; if on ASA d/c it and start plavix - Offered tPA treatment since she still symptomatic but refused it - Continue Plavix 75 po mg daily - Lipid panel: LDL is 104 but HDL is 49 - Thyroid panel is within normal limits - Accu-check QID AC/HS - CARPENTER REPAIR eval completed - PT/OT eval pending - Aspiration and Fall Protocol Active Smoker - 50 years of smoking - Advised to quit smoking Chronic: [place] Impaired Hearing/Vision HTN HLD Aneurysm Asthma/COPD PUD OA/DJD Osteoporosis Anemia Hypothyroidism Hx/o CVA Depression Plan: She is better this morning clinically Continue current treatment Start regular diet per CARPENTER REPAIR DVT/GI PPx:Lovenox SubQ and H2B PT/OT eval SW/CM for d/c planning Additional orders as above Awaiting input from other IDT members; patient may need SNF/Rehab Code status: DNR/DNI
[2018-01-22] MEDS: Saccharomyces Boulardii (Probiotic) 250 MG Cap PO SCH (08:44)
[2018-01-22] MEDS: Cholecalciferol (Vitamin D3) 1,000 Unit Tab PO SCH (08:45)
[2018-01-22] MEDS: Sucralfate 1 GM Tab PO SCH ×4 (08:45→20:32)
[2018-01-22] MEDS: Simvastatin 10 MG Tab PO SCH (08:45)
[2018-01-22] MEDS: LORazepam 1 MG Tab PO SCH ×2 (08:45→20:32)
[2018-01-22] MEDS: Clopidogrel 75 MG Tab PO SCH (08:46)
[2018-01-22] MEDS: Famotidine 20 MG/2 ML SDV IVPUSH SCH ×2 (08:46→20:32)
[2018-01-22] MEDS: Enoxaparin 40 MG/0.4 ML Syringe SUBCUT SCH (08:46)
[2018-01-22] MEDS ORDERED: Enoxaparin 30 MG/0.3 ML Syringe SUBCUT SCH (09:00)
[2018-01-22] MEDS ORDERED: Non-Formulary Medication 1 Each (Omeprazole [Omeprazole] 40 MG) PO SCH (09:00)
[2018-01-22] MEDS: traZODone 50 MG Tab PO PRN (20:33)
--- NOTE | 2018-01-23 04:25 | PCM.PN ---
- General Info Date of Service: 01/23/18 Admission Dx/Problem (Free Text): Admission Diagnosis/Problem Admission Diagnosis/Problem Ischemic stroke Subjective Update: Follow Up Functional Status: Reports: Pain Controlled, Tolerating Diet, Urinating. Denies : New Symptoms - Review of Systems General: Denies: Fever, Weakness, Fatigue, Chills HEENT: Reports: No Symptoms Pulmonary: Reports: No Symptoms Cardiovascular: Denies: Chest Pain, Dyspnea on Exertion Gastrointestinal: Denies: Abdominal Pain, Difficulty Swallowing, Nausea, Vomiting Genitourinary: Reports: No Symptoms Musculoskeletal: Reports: No Symptoms Neurological: Reports: Trouble Speaking (baseline), Gait Disturbance. Denies: Confusion, Tremors, Difficulty Walking, Weakness, Change in Speech Psychiatric: Denies: Depression, Anxiety, Agitation, Hallucinations Systems Review Comment:: No significant overnight or acute issues. She is relatively okay. She has no complaints this morning. - Patient Data Vitals - Most Recent: Last Vital Signs Temp 36.6 C 01/22/18 20:37 Pulse 63 01/22/18 20:37 Resp 12 01/22/18 20:37 BP 141/80 H 01/22/18 20:37 Pulse Ox 92 L 01/22/18 20:37 Weight - Most Recent: 53.524 kg I&O - Last 24 Hours: Intake & Output 01/22/18 01/22/18 01/23/18 14:59 22:59 06:59 Intake Total 180 860 Output Total 500 Balance 180 360 Lab Results Last 24 Hours: Laboratory Results - last 24 hr 01/22/18 01/22/18 01/22/18 Range/Units 06:06 06:09 06:09 WBC 6.64 (3.98-10.04) K/mm3 RBC 3.98 (3.98-5.22) M/mm3 Hgb 12.1 (11.2-15.7) gm/L Hct 38.2 (34.1-44.9) % MCV 96.0 H (79.4-94.8) fl MCH 30.4 (25.6-32.2) pg MCHC 31.7 L (32.2-35.5) g/dl RDW Std Deviation 45.8 (36.4-46.3) fL Plt Count 225 (182-369) K/mm3 MPV 9.7 (9.4-12.3) fl Neut % (Auto) 58.8 (34.0-71.1) % Lymph % (Auto) 22.1 (19.3-51.7) % [place] % (Auto) 10.5 (4.7-12.5) % Eos % (Auto) 7.5 H (0.7-5.8) Baso % (Auto) 0.8 (0.1-1.2) % Neut # (Auto) 3.90 (1.56-6.13) K/mm3 Lymph # (Auto) 1.47 (1.18-3.74) K/mm3 [place] # (Auto) 0.70 H (0.24-0.36) K/mm3 Eos # (Auto) 0.50 H (0.04-0.36) K/mm3 Baso # (Auto) 0.05 (0.01-0.08) K/mm3 Sodium 143 (136-145) mEq/L Potassium 3.8 (3.5-5.1) mEq/L Chloride 107 (98-107) mEq/L Carbon Dioxide 28 (21-32) mEq/L Anion Gap 11.8 (5-15) BUN 20 H (7-18) mg/dL Creatinine 0.7 (0.55-1.02) mg/dL Est Cr Clr Drug Dosing 61.68 mL/min Estimated GFR (MDRD) > 60 (>60) mL/min BUN/Creatinine Ratio 28.6 H (14-18) Glucose 94 (80-115) mg/dL POC Glucose 95 (80-115) mg/dL Calcium 9.0 (8.5-10.1) mg/dL Magnesium 1.9 (1.8-2.4) mg/dl Triglycerides 118 (<150) mg/dL Cholesterol 167 (<200) mg/dL LDL Cholesterol Direct 104 H* (<100) mg/dL HDL Cholesterol 49.0 (40-59) mg/dL Urine Color (Yellow) Urine Appearance (Clear) Urine pH (5.0-8.0) Ur Specific [place] (1.005-1.030) Urine Protein (Negative) Urine Glucose (UA) (Negative) Urine Ketones (Negative) Urine Occult Blood (Negative) Urine Nitrite (Negative) Urine Bilirubin (Negative) Urine Urobilinogen (0.2-1.0) Ur Leukocyte Esterase (Negative) Urine RBC (0-5) /hpf Urine WBC (0-5) /hpf Ur Epithelial Cells (0-5) /hpf Urine Bacteria (FEW) /hpf Urine Mucus (FEW) /hpf 01/22/18 01/22/18 01/22/18 Range/Units 06:35 10:54 16:40 WBC (3.98-10.04) K/mm3 RBC (3.98-5.22) M/mm3 Hgb (11.2-15.7) gm/L Hct (34.1-44.9) % MCV (79.4-94.8) fl MCH (25.6-32.2) pg MCHC (32.2-35.5) g/dl RDW Std Deviation (36.4-46.3) fL Plt Count (182-369) K/mm3 MPV (9.4-12.3) fl Neut % (Auto) (34.0-71.1) % Lymph % (Auto) (19.3-51.7) % [place] % (Auto) (4.7-12.5) % Eos % (Auto) (0.7-5.8) Baso % (Auto) (0.1-1.2) % Neut # (Auto) (1.56-6.13) K/mm3 Lymph # (Auto) (1.18-3.74) K/mm3 [place] # (Auto) (0.24-0.36) K/mm3 Eos # (Auto) (0.04-0.36) K/mm3 Baso # (Auto) (0.01-0.08) K/mm3 Sodium (136-145) mEq/L Potassium (3.5-5.1) mEq/L Chloride (98-107) mEq/L Carbon Dioxide (21-32) mEq/L Anion Gap (5-15) BUN (7-18) mg/dL Creatinine (0.55-1.02) mg/dL Est Cr Clr Drug Dosing mL/min Estimated GFR (MDRD) (>60) mL/min BUN/Creatinine Ratio (14-18) Glucose (80-115) mg/dL POC Glucose 115 85 (80-115) mg/dL Calcium (8.5-10.1) mg/dL Magnesium (1.8-2.4) mg/dl Triglycerides (<150) mg/dL Cholesterol (<200) mg/dL LDL Cholesterol Direct (<100) mg/dL HDL Cholesterol (40-59) mg/dL Urine Color Yellow (Yellow) Urine Appearance Clear (Clear) Urine pH 5.5 (5.0-8.0) Ur Specific [place] 1.020 (1.005-1.030) Urine Protein Negative (Negative) Urine Glucose (UA) Negative (Negative) Urine Ketones Negative (Negative) Urine Occult Blood Negative (Negative) Urine Nitrite Negative (Negative) Urine Bilirubin Negative (Negative) Urine Urobilinogen 0.2 (0.2-1.0) Ur Leukocyte Esterase Negative (Negative) Urine RBC 0-5 (0-5) /hpf Urine WBC 0-5 (0-5) /hpf Ur Epithelial Cells 0-5 (0-5) /hpf Urine Bacteria Rare (FEW) /hpf Urine Mucus Many H (FEW) /hpf Med Orders - Current: Current Medications Acetaminophen (Tylenol) 650 mg PO Q4H PRN PRN Reason: Pain (Mild 1-3)/fever Hydrocodone Bitart/Acetaminophen ([place] 325-5 Mg) 1 tab PO Q4H PRN PRN Reason: Pain (moderate 4-6) Albuterol/Ipratropium (Duoneb 3.0-0.5 Mg/3 Ml) 3 ml NEB Q4H PRN PRN Reason: Shortness Of Breath/wheezing Bisacodyl (Dulcolax) 5 mg PO DAILY PRN PRN Reason: Constipation Cholecalciferol (Vitamin D3) 1,000 units PO DAILY [facility] Last Admin: 01/22/18 08:45 Dose: 1,000 units Clopidogrel Bisulfate (Plavix) 75 mg PO DAILY [facility] Last Admin: 01/22/18 08:46 Dose: 75 mg Dextrose/Water (Dextrose 50% In Water) 50 ml IVPUSH ASDIRECTED PRN PRN Reason: Hypoglycemia Docusate Sodium (Colace) 100 mg PO BID PRN PRN Reason: Constipation Enoxaparin Sodium (Lovenox) 40 mg SUBCUT DAILY [facility] Last Admin: 01/22/18 08:46 Dose: 40 mg Famotidine (Pepcid) 20 mg IVPUSH BID [facility] Last Admin: 01/22/18 20:32 Dose: 20 mg Hydralazine HCl (Apresoline) 20 mg IVPUSH Q4H PRN PRN Reason: Hypertension Hydromorphone HCl (Dilaudid) 0.25 mg IVPUSH Q2H PRN PRN Reason: Pain (severe 7-10) Promethazine HCl 12.5 mg/ (Sodium Chloride) 50.5 mls @ 100 mls/hr IV Q6H PRN PRN Reason: Nausea/Vomiting Levothyroxine Sodium (Levothyroxine) 125 mcg PO ACBRK [facility] Last Admin: 01/22/18 06:27 Dose: 125 mcg Lorazepam (Ativan) 1 mg PO BID [facility] Last Admin: 01/22/18 20:32 Dose: 1 mg Lorazepam (Ativan) 2 mg IVPUSH Q4H PRN PRN Reason: Seizures Magnesium Sulfate (Pharmacy To Dose - Magnesium Replacement) 1 dose .XX ASDIRECTED [facility] Metoprolol Tartrate (Lopressor) 5 mg IVPUSH Q4H PRN PRN Reason: Tachycardia Non-Formulary Medication (Citalopram Hydrobromide [Celexa]) 40 mg PO DAILY [facility] Ondansetron HCl (Zofran) 4 mg IV Q6H PRN PRN Reason: Nausea/Vomiting Pantoprazole Sodium (Protonix) 40 mg PO DAILY@0700 [facility] Last Admin: 01/22/18 06:27 Dose: 40 mg Leflunomide 20 Mg 0 each PO DAILY [facility] Last Admin: 01/22/18 08:50 Dose: Not Given Polyethylene Glycol (Miralax) 17 gm PO DAILY PRN PRN Reason: Constipation Potassium Chloride (Pharmacy To Dose - Potassium Replacement) 1 dose .XX ASDIRECTED [facility] Saccharomyces Boulardii (Florastor) 250 mg PO DAILY [facility] Last Admin: 01/22/18 08:44 Dose: 250 mg Senna/Docusate Sodium (Senna Plus) 1 tab PO BID PRN PRN Reason: Constipation Simvastatin (Zocor) 10 mg PO DAILY [facility] Last Admin: 01/22/18 08:45 Dose: 10 mg Sodium Chloride (Saline Flush) 10 ml FLUSH ASDIRECTED PRN PRN Reason: Keep Vein Open Sucralfate (Carafate) 1 gm PO QID [facility] Last Admin: 01/22/18 20:32 Dose: 1 gm Trazodone HCl (Trazodone) 150 mg PO BEDTIME PRN PRN Reason: SLEEP Last Admin: 01/22/18 20:33 Dose: 150 mg Discontinued Medications Clopidogrel Bisulfate (Plavix) 150 mg PO ONETIME ONE Stop: 01/21/18 23:15 Last Admin: 01/21/18 23:57 Dose: 150 mg Insulin Aspart (Novolog) 0 unit SUBCUT QIDACANDBED [facility]; Protocol Last Admin: 01/22/18 17:14 Dose: Not Given Pantoprazole Sodium (Protonix Iv) 40 mg IVPUSH ONETIME ONE Stop: 01/21/18 23:02 Last Admin: 01/21/18 23:57 Dose: 40 mg Potassium Chloride (Klor-Con M20) 40 meq PO Q4H [facility] Stop: 01/22/18 04:01 Last Admin: 01/22/18 05:32 Dose: Not Given - Exam General: Alert, Oriented, Cooperative, No Acute Distress HEENT: Pupils Equal, Pupils Reactive, EOMI, Mucous Membr. Moist/[place], Other ( missing several upper teeth) Neck: Supple, Trachea Midline, No JVD, No Thyromegaly Lungs: Clear to Auscultation, Normal Respiratory Effort Cardiovascular: Regular Rate, Regular Rhythm GI/Abdominal Exam: Normal Bowel Sounds, Soft, Non-Tender, No Organomegaly, No Distention, No Abnormal Bruit (Female) Exam: Deferred Back Exam: Normal Inspection, Decreased Range of Motion Extremities: Normal Inspection, Normal Range of Motion, Non-Tender, No Pedal Edema, Normal Capillary Refill Peripheral Pulses: 2+: Dorsalis Pedis (L), Dorsalis Pedis (R) Skin: Warm, Dry, Intact Neurological: No New Focal Deficit Psy/Mental Status: Alert, Normal Affect, Normal Mood - Problem List Review Problem List Initiated/Reviewed/Updated: Yes - My Orders Last 24 Hours: My Active Orders 01/22/18 06:00 Levothyroxine 125 mcg PO ACBRK 01/22/18 06:35 URINALYSIS W/MICROSCOPIC [UA W/MICROSCOPIC] [URIN] Routine 01/22/18 07:00 Pantoprazole [ProTONIX] 40 mg PO DAILY@0700 01/22/18 09:00 Cholecalciferol (Vitamin D3) [Vitamin D3] 1,000 units PO DAILY Clopidogrel [Plavix] 75 mg PO DAILY Enoxaparin [Lovenox] 40 mg SUBCUT DAILY Famotidine [Pepcid] 20 mg IVPUSH BID LORazepam [Ativan] 1 mg PO BID Patient's Own Medication [Ptom] 0 each PO DAILY Saccharomyces Boulardii [Florastor] 250 mg PO DAILY Simvastatin [Zocor] 10 mg PO DAILY Sucralfate [Carafate] 1 gm PO QID 01/22/18 21:00 traZODone 150 mg PO BEDTIME PRN 01/22/18 Lunch Regular Diet [DIET] 01/23/18 05:11 BASIC METABOLIC PANEL,BMP [CHEM] AM MAGNESIUM [CHEM] AM 01/23/18 09:00 Citalopram Hydrobromide [Celexa] 40 mg PO DAILY 01/24/18 05:11 BASIC METABOLIC PANEL,BMP [CHEM] AM MAGNESIUM [CHEM] AM - Plan Plan:: Assessment/Plan: Acute: Stroke - Risk Factors: Hx/o Multiple CVAs, Carotid Atherosclerosis, HTN, HLD and Active Smoker - Mild aphasia and facial Asymmetry; improved - She is only on ASA - Head CT scan shows no acute abnormal findings; No Head/Neck CTA done in ED - Case referred to on-call Neurology in [place] - Recommendations: no need for lateral transfer or invasive treatment; if on ASA d/c it and start plavix - Offered tPA treatment since she still symptomatic but refused it - Continue Plavix 75 po mg daily - Lipid panel: LDL is 104 but HDL is 49 - Thyroid panel is within normal limits - Accu-check QID AC/HS; discontinued - [employer] eval completed; now on regular diet - PT/OT eval to resume in AM - Aspiration and Fall Protocol Active Smoker - 50 years of smoking - Advised to quit smoking Chronic: AR Impaired Hearing/Vision HTN HLD Aneurysm Asthma/COPD PUD OA/DJD Osteoporosis Anemia Hypothyroidism Hx/o CVA Depression Plan: She continues to improve clinically Continue current treatment DVT/GI PPx:Lovenox SubQ and H2B PT/OT to resume in AM SW/CM for d/c planning Additional orders as above Awaiting input from other IDT members; patient may need SNF/Rehab vs Outpatient Services Code status: DNR/DNI Possible d/c tomorrow
[2018-01-23] MEDS: Pantoprazole 40 MG Tab.CR PO SCH ×2 (04:58→07:09)
[2018-01-23] MEDS: Levothyroxine 125 MCG Tab PO SCH (04:59)
[2018-01-23] MEDS: Cholecalciferol (Vitamin D3) 1,000 Unit Tab PO SCH (08:27)
[2018-01-23] MEDS: Clopidogrel 75 MG Tab PO SCH (08:27)
[2018-01-23] MEDS: Sucralfate 1 GM Tab PO SCH ×5 (08:27→20:21)
[2018-01-23] MEDS: Simvastatin 10 MG Tab PO SCH (08:27)
[2018-01-23] MEDS: LORazepam 1 MG Tab PO SCH ×2 (08:27→20:20)
[2018-01-23] MEDS: Saccharomyces Boulardii (Probiotic) 250 MG Cap PO SCH (08:27)
[2018-01-23] MEDS: Citalopram 20 MG Tab PO SCH (08:27)
[2018-01-23] MEDS: Enoxaparin 40 MG/0.4 ML Syringe SUBCUT SCH (08:27)
[2018-01-23] MEDS: traZODone 50 MG Tab PO PRN (20:20)
[2018-01-24] MEDS: Levothyroxine 125 MCG Tab PO SCH (06:09)
[2018-01-24] MEDS: Pantoprazole 40 MG Tab.CR PO SCH (06:09)
--- NOTE | 2018-01-24 08:54 | CT ---
Head CT Technique: Multiple axial sections were obtained through the brain. Intravenous contrast was not utilized. Comparison: Prior head CT study of 11/04/17 and MRI brain of 11/04/17. Findings: Diminished density noted within the posterior left temporoparietal occipital region compatible with evolving infarct from previous exam with development of encephalomalacia. Diminished density is noted within the frontal white matter on the left side which is compatible with old infarct. Old infarct is noted within the posterior right frontal region. Diminished density is noted within the periventricular and subcortical white matter which is compatible with small vessel ischemic demyelination change. Ventricles along with basal cisterns and sulci over the convexities are moderately prominent. No evidence of intracranial hemorrhage. No midline shift or mass effect is seen. Mild atherosclerotic calcification is noted within the right vertebral vessel and within the carotid siphon. Impression: 1. Old infarcts as noted above. Other senescent change which remains stable. 2. No definite acute intracranial abnormality is appreciated. Diagnostic code #3 Agree with preliminary report issued by [email or web address] ([facility] preliminary report dictated on 01/21/18, 10:52 PM Central Time) [facility]
[2018-01-24] MEDS: Saccharomyces Boulardii (Probiotic) 250 MG Cap PO SCH (08:59)
[2018-01-24] MEDS: Clopidogrel 75 MG Tab PO SCH (08:59)
[2018-01-24] MEDS: Citalopram 20 MG Tab PO SCH (08:59)
[2018-01-24] MEDS: Cholecalciferol (Vitamin D3) 1,000 Unit Tab PO SCH (09:00)
[2018-01-24] MEDS: LORazepam 1 MG Tab PO SCH (09:00)
[2018-01-24] MEDS: Sucralfate 1 GM Tab PO SCH ×2 (09:00→12:24)
[2018-01-24] MEDS: Simvastatin 10 MG Tab PO SCH (09:00)
[2018-01-24] MEDS: Enoxaparin 40 MG/0.4 ML Syringe SUBCUT SCH (09:03)
--- NOTE | 2018-01-24 11:06 | PCM.DCSUM1 ---
Discharge Summary - Hospital Course HPI Initial Comments: This is a 67-year-old female. Apparently around 4 PM this afternoon the noted her to have some slurred speech and facial drooping. They did not call the ambulance until an hour and a half later which did not clear up. She arrives to our ER at 9:34 PM with the symptoms of garbled speech and facial drooping. The ambulance crew that picked her up in [place] stated that she was able to walk to the stretcher at her house. On the way to the ER she had waxing and waning speech properties. She does have a history back in October of this year which she came in with similar symptoms including a headache which she also complains of this evening. She was noted on a CT scan in October to have an old infarct anterior left frontal area and also a left parietal occipital infarct. The patient is able to express and answer questions for the NIH score. Her NIH score is 4. She also complains of a headache but she really can't describe where it is. She denies any chest pain she denies any shortness of breath. She takes a baby aspirin daily. She is on no other blood thinners. Blood sugar in the ambulance was 99 and when she arrived here her blood sugar was 79. - Discharge Data Discharge Date: 01/24/18 (admit 01/21/18) Discharge Disposition: Home, Self-Care 01 Condition: Good - Discharge Diagnosis/Problem(s) (1) Cerebrovascular accident (CVA) SNOMED Code(s): 364428543 ICD Code: I63.9 - CEREBRAL INFARCTION, UNSPECIFIED Status: Acute Priority : High Qualifiers: CVA mechanism: unspecified Qualified Code(s): I63.9 - Cerebral infarction, unspecified (2) Expressive aphasia SNOMED Code(s): 213596866 ICD Code: R47.01 - APHASIA Status: Acute Priority: High (3) Facial droop due to acute cerebrovascular accident (CVA) SNOMED Code(s): 33735934 ICD Code: I63.9 - CEREBRAL INFARCTION, UNSPECIFIED; R29.810 - FACIAL WEAKNESS Status: Acute Priority: High - Patient Summary/Data Operative Procedure(s) Performed: none Complications: none Consults: Consultations 01/21/18 23:04 Consult to Case Management [CONS] Routine Consult to Solution Design And Analysis Manager [CONS] Routine Consult to Spiritual Care [CONS] Routine OT Evaluation and Treatment [CONS] Routine PT Evaluation and Treatment [CONS] Routine EVENTS MANAGER Evaluation and Treatment [CONS] Routine Labs Pending at D/C: none Recommended Follow-up Testing/Procedures: Follow up with PCP in 7-10 days. Gave tobacco cessation counseling. Per patient and she has stopped smoking 4-5 months ago and was using the nicotine patches but plans to change to gum. They have both nicotine patches and gum at home. Advised to follow up with PCP if need further resources. Planned Operative Procedure(s) after DC: none Hospital Course: Assessment/Plan: Acute: Stroke - Risk Factors: Hx/o Multiple CVAs, Carotid Atherosclerosis, HTN, HLD and Active Smoker - Mild aphasia and facial Asymmetry; improved - She is only on ASA--> D/C and start Plavix at home - Head CT scan shows no acute abnormal findings; No Head/Neck CTA done in ED - Case referred to on-call Neurology in [place] - Recommendations: no need for lateral transfer or invasive treatment; if on ASA d/c it and start plavix - Offered tPA treatment since she still symptomatic but refused it - Continue Plavix 75 po mg daily - Lipid panel: LDL is 104 but HDL is 49 - Thyroid panel is within normal limits - Accu-check QID AC/HS; discontinued - EVENTS MANAGER eval completed; now on regular diet - PT/OT eval to resume in AM--> Recommend outpatient PT - Aspiration and Fall Protocol Active Smoker - 50 years of smoking - Advised to quit smoking Chronic: AR Impaired Hearing/Vision HTN HLD Aneurysm Asthma/COPD PUD OA/DJD Osteoporosis Anemia Hypothyroidism Hx/o CVA Depression Plan: She continues to improve clinically Continue current treatment DVT/GI PPx:Lovenox SubQ and H2B PT/OT to resume in AM SW/CM for d/c planning Additional orders as above Outpatient PT Services recommended Code status: DNR/DNI; PCP: Lisette Reid D/c today After being admitted for CVA, Chelsea has recovered quite well- even without tPA treatment, which she had refused. She had multiple tests done and we consulted with on-call Neurology in [place]. Head CT scan showed no acute abnormal findings. There was no need for lateral transfer or invasive treatment. She was discharged home on Plavix and told to discontinue aspirin. She should follow-up with her primary care provider in 7-10 days. Also gave tobacco cessation counseling-Per patient and she has stopped smoking 4-5 months ago and was using the nicotine patches but plans to change to gum. They have both nicotine patches and gum at home. Advised to follow up with PCP if need further resources. PT/OT/ST recommending return to home with outpatient PT/ST. She will be discharged home today. - Patient Instructions Diet: Heart Healthy Diet Activity: As Tolerated Driving: Do Not Drive Showering/Bathing: May Shower Notify Provider of: Fever, Increased Pain, Swelling and Redness, Nausea and/or Vomiting - Discharge Plan Prescriptions/Med Rec: Clopidogrel Bisulfate [Clopidogrel] 75 mg PO DAILY #30 tablet Home Medications: Home Meds Citalopram Hydrobromide [Celexa] 40 mg PO BEDTIME 11/04/17 [History] LORazepam 1 mg PO BID 11/04/17 [History] Leflunomide 20 mg PO DAILY 11/04/17 [History] Levothyroxine Sodium [Synthroid] 125 mcg PO DAILY 11/04/17 [History] Omeprazole 40 mg PO DAILY 11/04/17 [History] Sucralfate 1 gm PO QID 11/04/17 [History] atorvaSTATin [Lipitor] 10 mg PO DAILY 11/04/17 [History] traZODone HCl [Trazodone HCl] 1 tab PO BEDTIME PRN 11/04/17 [History] Cholecalciferol (Vitamin D3) [Vitamin D3] 0 mg PO DAILY 01/21/18 [History] Lactobacillus Acidophilus [Acidophilus Lactobacillus] 1 cap PO DAILY 01/21/18 [ History] Clopidogrel Bisulfate [Clopidogrel] 75 mg PO DAILY #30 tablet 01/24/18 [Rx] Patient Handouts: Stroke Prevention, [id number], Clopidogrel tablets, Ischemic Stroke Treated Without Warfarin, [id number], Steps to Quit Smoking Referrals: Lisette Reid NP [Nurse Practitioner] - 01/27/18 9:30 am - Discharge Summary/Plan Comment DC Time >30 min.: Yes (40) - General Info Date of Service: 01/24/18 Admission Dx/Problem (Free Text: Admission Diagnosis/Problem Admission Diagnosis/Problem Ischemic stroke Subjective Update: In to see Chelsea today. She is sitting in a chair. Overall she is doing quite well. She has no complaints. She has been sleeping well. Good appetite. Pain is controlled. Urinating. No concerns from nursing. Will be DCd back to home today with Plavix and has been told to stop her aspirin. Gave tobacco cessation counseling-she states she stopped smoking 4-5 months ago and was using the nicotine patches but plans to change to gum. She has both nicotine patches and gum at home. Advised to follow up with PCP if need further resources. Functional Status: Reports: Pain Controlled, Tolerating Diet, Urinating - Review of Systems General: Reports: No Symptoms HEENT: Reports: No Symptoms Pulmonary: Reports: No Symptoms Cardiovascular: Reports: No Symptoms Gastrointestinal: Reports: No Symptoms. Denies: Abdominal Pain, Diarrhea, Difficulty Swallowing, Nausea, Vomiting Genitourinary: Reports: No Symptoms Musculoskeletal: Reports: No Symptoms Skin: Reports: No Symptoms Neurological: Reports: Trouble Speaking (baseline), Gait Disturbance. Denies: Confusion, Tremors Psychiatric: Reports: No Symptoms - Patient Data Vitals - Most Recent: Last Vital Signs Temp 98.2 F 01/24/18 08:57 Pulse 84 01/24/18 08:57 Resp 12 01/24/18 08:57 BP 119/68 01/24/18 08:57 Pulse Ox 89 L 01/24/18 08:57 Weight - Most Recent: 112 lb 14.4 oz I&O - Last 24 hours: Intake & Output 01/23/18 01/24/18 01/24/18 22:59 06:59 14:59 Intake Total 870 500 240 Output Total 350 1550 Balance 520 -1050 240 Lab Results - Last 24 hrs: Laboratory Results - last 24 hr 01/24/18 Range/Units 06:04 Sodium 143 (136-145) mEq/L Potassium 4.0 (3.5-5.1) mEq/L Chloride 107 (98-107) mEq/L Carbon Dioxide 28 (21-32) mEq/L Anion Gap 12.0 (5-15) BUN 23 H (7-18) mg/dL Creatinine 0.8 (0.55-1.02) mg/dL Est Cr Clr Drug Dosing 53.97 mL/min Estimated GFR (MDRD) > 60 (>60) mL/min BUN/Creatinine Ratio 28.8 H (14-18) Glucose 90 (80-115) mg/dL Calcium 9.1 (8.5-10.1) mg/dL Magnesium 1.9 (1.8-2.4) mg/dl Med Orders - Current: Current Medications Acetaminophen (Tylenol) 650 mg PO Q4H PRN PRN Reason: Pain (Mild 1-3)/fever Hydrocodone Bitart/Acetaminophen ([place] 325-5 Mg) 1 tab PO Q4H PRN PRN Reason: Pain (moderate 4-6) Albuterol/Ipratropium (Duoneb 3.0-0.5 Mg/3 Ml) 3 ml NEB Q4H PRN PRN Reason: Shortness Of Breath/wheezing Bisacodyl (Dulcolax) 5 mg PO DAILY PRN PRN Reason: Constipation Last Admin: 01/24/18 06:09 Dose: 5 mg Cholecalciferol (Vitamin D3) 1,000 units PO DAILY [facility] Last Admin: 01/24/18 09:00 Dose: 1,000 units Citalopram Hydrobromide (Celexa) 40 mg PO DAILY [facility] Last Admin: 01/24/18 08:59 Dose: 40 mg Clopidogrel Bisulfate (Plavix) 75 mg PO DAILY [facility] Last Admin: 01/24/18 08:59 Dose: 75 mg Dextrose/Water (Dextrose 50% In Water) 50 ml IVPUSH ASDIRECTED PRN PRN Reason: Hypoglycemia Docusate Sodium (Colace) 100 mg PO BID PRN PRN Reason: Constipation Enoxaparin Sodium (Lovenox) 40 mg SUBCUT DAILY [facility] Last Admin: 01/24/18 09:03 Dose: 40 mg Hydralazine HCl (Apresoline) 20 mg IVPUSH Q4H PRN PRN Reason: Hypertension Hydromorphone HCl (Dilaudid) 0.25 mg IVPUSH Q2H PRN PRN Reason: Pain (severe 7-10) Promethazine HCl 12.5 mg/ (Sodium Chloride) 50.5 mls @ 100 mls/hr IV Q6H PRN PRN Reason: Nausea/Vomiting Levothyroxine Sodium (Levothyroxine) 125 mcg PO ACBRK [facility] Last Admin: 01/24/18 06:09 Dose: 125 mcg Lorazepam (Ativan) 1 mg PO BID [facility] Last Admin: 01/24/18 09:00 Dose: 1 mg Lorazepam (Ativan) 2 mg IVPUSH Q4H PRN PRN Reason: Seizures Magnesium Sulfate (Pharmacy To Dose - Magnesium Replacement) 1 dose .XX ASDIRECTED [facility] Metoprolol Tartrate (Lopressor) 5 mg IVPUSH Q4H PRN PRN Reason: Tachycardia Ondansetron HCl (Zofran) 4 mg IV Q6H PRN PRN Reason: Nausea/Vomiting Pantoprazole Sodium (Protonix) 40 mg PO DAILY@0700 [facility] Last Admin: 01/24/18 06:09 Dose: 40 mg Leflunomide 20 Mg 0 each PO DAILY [facility] Last Admin: 01/24/18 10:47 Dose: Not Given Polyethylene Glycol (Miralax) 17 gm PO DAILY PRN PRN Reason: Constipation Potassium Chloride (Pharmacy To Dose - Potassium Replacement) 1 dose .XX ASDIRECTED [facility] Saccharomyces Boulardii (Florastor) 250 mg PO DAILY [facility] Last Admin: 01/24/18 08:59 Dose: 250 mg Senna/Docusate Sodium (Senna Plus) 1 tab PO BID PRN PRN Reason: Constipation Simvastatin (Zocor) 10 mg PO DAILY [facility] Last Admin: 01/24/18 09:00 Dose: 10 mg Sodium Chloride (Saline Flush) 10 ml FLUSH ASDIRECTED PRN PRN Reason: Keep Vein Open Sucralfate (Carafate) 1 gm PO QID [facility] Last Admin: 01/24/18 09:00 Dose: 1 gm Trazodone HCl (Trazodone) 150 mg PO BEDTIME PRN PRN Reason: SLEEP Last Admin: 01/23/18 20:20 Dose: 150 mg Discontinued Medications Clopidogrel Bisulfate (Plavix) 150 mg PO ONETIME ONE Stop: 01/21/18 23:15 Last Admin: 01/21/18 23:57 Dose: 150 mg Famotidine (Pepcid) 20 mg IVPUSH BID [facility] Last Admin: 01/22/18 20:32 Dose: 20 mg Insulin Aspart (Novolog) 0 unit SUBCUT QIDACANDBED [facility]; Protocol Last Admin: 01/22/18 17:14 Dose: Not Given Pantoprazole Sodium (Protonix Iv) 40 mg IVPUSH ONETIME ONE Stop: 01/21/18 23:02 Last Admin: 01/21/18 23:57 Dose: 40 mg Potassium Chloride (Klor-Con M20) 40 meq PO Q4H DORINDA Stop: 01/22/18 04:01 Last Admin: 01/22/18 05:32 Dose: Not Given - Exam General: Reports: Alert, Oriented, Cooperative, No Acute Distress HEENT: Reports: Pupils Equal, Pupils Reactive, EOMI, Mucous Membr. Moist/[place] Neck: Reports: Supple Lungs: Reports: Clear to Auscultation, Normal Respiratory Effort Cardiovascular: Reports: Regular Rate, Regular Rhythm GI/Abdominal Exam: Normal Bowel Sounds, Soft, Non-Tender, No Distention, Pelvis Stable (Female) Exam: Deferred Rectal (Female) Exam: Deferred Back Exam: Reports: Normal Inspection, Decreased Range of Motion Extremities: Normal Inspection, Normal Range of Motion, Non-Tender, No Pedal Edema, Normal Capillary Refill Skin: Reports: Warm, Dry, Intact Neurological: Reports: No New Focal Deficit Psy/Mental Status: Reports: Alert, Normal Affect, Normal Mood
[2018-01-24 13:45] VITALS: BP 137/72
== END 2018-01-24 13:01 | disposition home or self-care (01) | DRG 66 ==
LOC: JD.ED 21:25 → JD.MS 23:10
PROVIDERS: ADMIT Emergency Medicine; ATTEND Internal Medicine
DX: I63.9 Cerebral infarction, unspecified (principal); I63.8 Other cerebral infarction; R47.81 Slurred speech; R29.810 Facial weakness; R29.704 NIHSS score 4; R47.01 Aphasia; R41.82 Altered mental status, unspecified; R51 Headache; J30.9 Allergic rhinitis, unspecified; H91.90 Unspecified hearing loss, unspecified ear; H54.7 Unspecified visual loss; E78.00 Pure hypercholesterolemia, unspecified; I72.9 Aneurysm of unspecified site; I10 Essential (primary) hypertension; J44.9 Chronic obstructive pulmonary disease, unspecified; K27.9 Peptic ulcer, site unspecified, unspecified as acute or chronic, without hemorrhage or perforation; M19.90 Unspecified osteoarthritis, unspecified site; M81.0 Age-related osteoporosis without current pathological fracture; F32.9 Major depressive disorder, single episode, unspecified; E03.9 Hypothyroidism, unspecified; E78.5 Hyperlipidemia, unspecified; I65.29 Occlusion and stenosis of unspecified carotid artery; R26.9 Unspecified abnormalities of gait and mobility; K59.00 Constipation, unspecified; I35.1 Nonrheumatic aortic (valve) insufficiency; D64.9 Anemia, unspecified; F17.200 Nicotine dependence, unspecified, uncomplicated; I69.398 Other sequelae of cerebral infarction; G93.89 Other specified disorders of brain; Z66 Do not resuscitate; Z88.2 Allergy status to sulfonamides; Z98.84 Bariatric surgery status; Z90.49 Acquired absence of other specified parts of digestive tract; Z90.710 Acquired absence of both cervix and uterus; Z79.82 Long term (current) use of aspirin; Z79.899 Other long term (current) drug therapy
CPT/HCPCS: 36415; 70450; 70450-26; 80048; 80053; 80061; 81001; 82150; 82962; 83735; 84439; 84443; 85025; 85610; 85730; 87086; 92523-GN; 93005; 93010; 97112-GP; 97116-GP; 97161-GP; 97165-GO; 99285; 99285-25; A9270-GY; C9113; J1650

== ENCOUNTER 2019-01-23 13:48 | Emergency (ER) | payer MEDICARE, BC ==
--- NOTE | 2019-01-23 14:00 | EDM.PDOC ---
ED HPI GENERAL MEDICAL PROBLEM - General Chief Complaint: Neuro Symptoms/Deficits Stated Complaint: [facility] Time Seen by Provider: 01/23/19 13:48 - History of Present Illness INITIAL COMMENTS - FREE TEXT/NARRATIVE: 68-year-old female presents emergency room with increased weakness The patient fell around 7 or 7:30 this morning. After this time the patient has not wanted to walk the patient is a significant history of several strokes in the past. 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 EMS cannot provide much more history the patient will answer simple questions. Her is not here yet to help with the history - Related Data Allergies Allergy/AdvReac Type Severity Reaction Status Date / Time Sulfa (Sulfonamide Allergy Severe Hives Verified 01/23/19 14:00 Antibiotics) Home Meds: Home Meds Citalopram Hydrobromide [Celexa] 40 mg PO BEDTIME 11/04/17 [History] LORazepam 1 mg PO BID 11/04/17 [History] Leflunomide 20 mg PO DAILY 11/04/17 [History] Levothyroxine Sodium [Synthroid] 88 mcg PO DAILY 11/04/17 [History] Omeprazole 40 mg PO DAILY 11/04/17 [History] atorvaSTATin [Lipitor] 10 mg PO BEDTIME 11/04/17 [History] traZODone HCl [Trazodone HCl] 150 mg PO BEDTIME PRN 11/04/17 [History] Cholecalciferol (Vitamin D3) [Vitamin D3] 2,000 intnl unit PO DAILY 01/21/18 [ History] Lactobacillus Acidophilus [Acidophilus Lactobacillus] 1 cap PO DAILY 01/21/18 [ History] Clopidogrel Bisulfate [Clopidogrel] 75 mg PO DAILY #30 tablet 01/24/18 [Rx] Albuterol [Ventolin HFA] 0 puff INH DAILY 01/23/19 [History] Fluticasone Propionate [Flovent HFA] 0 puff INH DAILY 01/23/19 [History] Past Medical History HEENT History: Reports: Allergic Rhinitis, Hard of Hearing, Impaired Vision, Sinusitis Other HEENT History: wears reading glasses Cardiovascular History: Reports: Aneurysm, High Cholesterol, Hypertension Respiratory History: Reports: Asthma, COPD Gastrointestinal History: Reports: Helicobacter Pylori, PUD RN TELEPHONIC History: Reports: Musculoskeletal History: Reports: Osteoarthritis, Osteoporosis Neurological History: Reports: CVA Psychiatric History: Reports: Depression, Other (See Below) Endocrine/Metabolic History: Reports: Hypothyroidism Hematologic History: Reports: Anemia - Infectious Disease History Infectious Disease History: Reports: Shingles - Past Surgical History HEENT Surgical History: Reports: Cataract Surgery, Naso-Sinus Surgery Respiratory Surgical History: Reports: None GI Surgical History: Reports: Bariatric Procedure, Cholecystectomy Female Surgical History: Reports: Breast Implant, Breast Reconstruction, Breast Reduction, Hysterectomy, Tubal Ligation Neurological Surgical History: Reports: None Musculoskeletal Surgical History: Reports: Shoulder Surgery Dermatological Surgical History: Reports: None Social & Family History - Family History Family Medical History: Noncontributory - Caffeine Use Caffeine Use: Reports: None Caffeine Use Comment: 1 cup/day ED ROS GENERAL - Review of Systems Review Of Systems: See Below Constitutional: Reports: Fever, Chills HEENT: Reports: No Symptoms Respiratory: Reports: No Symptoms Cardiovascular: Reports: No Symptoms GI/Abdominal: Reports: No Symptoms : Reports: No Symptoms Musculoskeletal: Reports: Leg Pain Skin: Reports: Bruising (Over right knee) Neurological: Reports: Pre-Existing Deficit ED EXAM, NEURO - Physical Exam Exam: See Below Exam Limited By: Other (The patient can be difficult to get answers from) General Appearance: Alert, No Apparent Distress Eye Exam: Bilateral Eye: Normal Inspection Ears: Normal External Exam, Normal Canal, Hearing Grossly Normal, Normal TMs Nose: Normal Inspection, Normal Mucosa, No Blood Throat/Mouth: Normal Inspection, Normal Oropharynx, No Airway Compromise Head Exam: Other (Is a small tender area on the back of her scalp this is where it is thought she hit her head when she fell) Neck: Normal Inspection, Supple, Non-Tender, Full Range of Motion. 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 It is difficult to assess her lower extremities she does everything requested on her left lower extremity but she's really resisting movement with the right as it turns out she's got some knee discomfort femur discomfort and possibly some pelvis discomfort) Back Exam: Normal Inspection. No: CVA Tenderness (L), CVA Tenderness (R) Extremities: No Pedal Edema, Other (She has some bruising over her right knee but no obvious deformity) Skin Exam: Warm, Dry, Intact EKG INTERPRETATION EKG Date: 01/23/19 Rhythm: NSR Rate (Beats/Min): 85 [place]: Normal P-Wave: Present QRS: Normal ST-T: Normal QT: Normal Course - Vital Signs Last Recorded V/S: Last Vital Signs Temp 36.2 C 01/23/19 14:03 Pulse 89 01/23/19 14:03 Resp 14 01/23/19 14:03 BP 124/86 01/23/19 14:03 Pulse Ox 94 L 01/23/19 14:03 - Orders/Labs/Meds Orders: Active Orders 24 hr Category Date Time Status EKG Documentation Completion [RC] STAT Care 01/23/19 13:58 Active Insert Guevara Catheter [Insert Urinary Catheter] [OM.PC] Care 01/23/19 15:00 Ordered Q24H Urinary Catheter Assessment [RC] ASDIRECTED Care 01/23/19 15:00 Active Labs: Laboratory Tests 01/23/19 01/23/19 01/23/19 Range/Units 13:52 13:52 13:52 WBC 9.54 (3.98-10.04) K/mm3 RBC 4.37 (3.98-5.22) M/mm3 Hgb 13.1 (11.2-15.7) gm/L Hct 40.0 (34.1-44.9) % MCV 91.5 (79.4-94.8) fl MCH 30.0 (25.6-32.2) pg MCHC 32.8 (32.2-35.5) g/dl RDW Std Deviation 48.3 H (36.4-46.3) fL Plt Count 231 (182-369) K/mm3 MPV 9.7 (9.4-12.3) fl Neutrophils % (Manual) 86 H (40-60) % Band Neutrophils % 1 (0-10) % Lymphocytes % (Manual) 7 L (20-40) % Atypical Lymphs % 0 % Monocytes % (Manual) 6 (2-10) % Eosinophils % (Manual) 0 L (0.7-5.8) % Basophils % (Manual) 0 L (0.1-1.2) Platelet Estimate Adequate Anisocytosis 1+ slight Macrocytosis 1+ slight Ovalocytes 1+ slight RBC Morph Comment Not Reportable PT 10.9 (9.5-12.1) SECONDS INR 1.00 APTT 27 (24-31) SECONDS Sodium 140 (136-145) mEq/L Potassium 3.7 (3.5-5.1) mEq/L Chloride 103 (98-107) mEq/L Carbon Dioxide 24 (21-32) mEq/L Anion Gap 16.7 H (5-15) BUN 21 H (7-18) mg/dL Creatinine 0.7 (0.55-1.02) mg/dL Est Cr Clr Drug Dosing 60.59 mL/min Estimated GFR (MDRD) > 60 (>60) mL/min BUN/Creatinine Ratio 30.0 H (14-18) Glucose 136 H (80-115) mg/dL Calcium 9.3 (8.5-10.1) mg/dL Total Bilirubin 0.4 (0.2-1.0) mg/dL AST 16 (15-37) U/L ALT 24 (14-59) U/L Alkaline Phosphatase 59 (46-116) U/L Troponin I < 0.017 (0.00-0.056) ng/mL Total Protein 6.4 (6.4-8.2) g/dl Albumin 3.5 (3.4-5.0) g/dl Globulin 2.9 gm/dL Albumin/Globulin Ratio 1.2 (1-2) TSH 3rd Generation (0.358-3.74) uIU/mL Urine Color (Yellow) Urine Appearance (Clear) Urine pH (5.0-8.0) Ur Specific [place] (1.005-1.030) Urine Protein (Negative) Urine Glucose (UA) (Negative) Urine Ketones (Negative) Urine Occult Blood (Negative) Urine Nitrite (Negative) Urine Bilirubin (Negative) Urine Urobilinogen (0.2-1.0) Ur Leukocyte Esterase (Negative) Urine RBC (0-5) /hpf Urine WBC (0-5) /hpf Ur Epithelial Cells (0-5) /hpf Urine Bacteria (FEW) /hpf Urine Mucus (FEW) /hpf 01/23/19 01/23/19 Range/Units 13:52 15:08 WBC (3.98-10.04) K/mm3 RBC (3.98-5.22) M/mm3 Hgb (11.2-15.7) gm/L Hct (34.1-44.9) % MCV (79.4-94.8) fl MCH (25.6-32.2) pg MCHC (32.2-35.5) g/dl RDW Std Deviation (36.4-46.3) fL Plt Count (182-369) K/mm3 MPV (9.4-12.3) fl Neutrophils % (Manual) (40-60) % Band Neutrophils % (0-10) % Lymphocytes % (Manual) (20-40) % Atypical Lymphs % % Monocytes % (Manual) (2-10) % Eosinophils % (Manual) (0.7-5.8) % Basophils % (Manual) (0.1-1.2) Platelet Estimate Anisocytosis Macrocytosis Ovalocytes RBC Morph Comment PT (9.5-12.1) SECONDS INR APTT (24-31) SECONDS Sodium (136-145) mEq/L Potassium (3.5-5.1) mEq/L Chloride (98-107) mEq/L Carbon Dioxide (21-32) mEq/L Anion Gap (5-15) BUN (7-18) mg/dL Creatinine (0.55-1.02) mg/dL Est Cr Clr Drug Dosing mL/min Estimated GFR (MDRD) (>60) mL/min BUN/Creatinine Ratio (14-18) Glucose (80-115) mg/dL Calcium (8.5-10.1) mg/dL Total Bilirubin (0.2-1.0) mg/dL AST (15-37) U/L ALT (14-59) U/L Alkaline Phosphatase (46-116) U/L Troponin I (0.00-0.056) ng/mL Total Protein (6.4-8.2) g/dl Albumin (3.4-5.0) g/dl Globulin gm/dL Albumin/Globulin Ratio (1-2) TSH 3rd Generation 0.172 L (0.358-3.74) uIU/mL Urine Color Yellow (Yellow) Urine Appearance Clear (Clear) Urine pH 6.0 (5.0-8.0) Ur Specific [place] 1.025 (1.005-1.030) Urine Protein Trace H (Negative) Urine Glucose (UA) Negative (Negative) Urine Ketones Negative (Negative) Urine Occult Blood Negative (Negative) Urine Nitrite Negative (Negative) Urine Bilirubin Negative (Negative) Urine Urobilinogen 0.2 (0.2-1.0) Ur Leukocyte Esterase Negative (Negative) Urine RBC 0-5 (0-5) /hpf Urine WBC 0-5 (0-5) /hpf Ur Epithelial Cells 0-5 (0-5) /hpf Urine Bacteria Few (FEW) /hpf Urine Mucus Few (FEW) /hpf Meds: Medications Discontinued Medications Generic Name Dose Route Start Last Admin Trade Name Andrei PRN Reason Stop Dose Admin Acetaminophen 650 mg 01/23/19 15:49 01/23/19 16:13 Tylenol PO 01/23/19 15:50 650 mg NOW ONE Administration - Re-Assessments/Exams Free Text/Narrative Re-Assessment/Exam: 01/23/19 14:[address] shows no acute changes she's got multiple old appearing infarcts and age -related changes. Laboratory evaluation is negative at this point awaiting urinalysis. And we are x-ray pelvis femur and knee on the right 01/23/19 17:45 He is doing much better at this point able to ambulate with some assistance she agrees to use her walker at home we will discharge her home using Tylenol Departure - Departure Time of Disposition: 17:45 Disposition: Home, Self-Care 01 Clinical Impression: Contusion of right knee, Discomfort of right hip - Discharge Information Forms: ED Department Discharge Additional Instructions: Return to emergency room with any questions problems worsening symptoms. Follow-up with regular provider as needed. Use Tylenol 650 mg every 4-6 hours as needed for pain. - My Orders Last 24 Hours: My Active Orders 01/23/19 13:58 EKG Documentation Completion [RC] STAT 01/23/19 15:00 Insert Guevara Catheter [Insert Urinary Catheter] [OM.PC] Q24H Urinary Catheter Assessment [RC] ASDIRECTED - Assessment/Plan Last 24 Hours: My Active Orders 01/23/19 13:58 EKG Documentation Completion [RC] STAT 01/23/19 15:00 Insert Guevara Catheter [Insert Urinary Catheter] [OM.PC] Q24H Urinary Catheter Assessment [RC] ASDIRECTED
--- NOTE | 2019-01-23 14:25 | CT ---
Head CT Technique: Multiple axial sections through the brain were obtained. Intravenous contrast was not utilized. Comparison: Previous MRI brain of 11/04/[address] study of 11/04/17. Findings: Old infarcts are noted within the posterior temporal and parietal regions on the left side. Old infarcts are noted within both frontal regions. Diminished density is noted within the periventricular white matter and subcortical white matter compatible with small vessel ischemic demyelination change. Atherosclerotic calcification noted within the vertebral vessels and carotid siphon. Old lacunar infarcts are noted within the basal ganglia. No evidence of intracranial hemorrhage. No midline shift or mass effect is seen. Ventricles along with basal cisterns and sulci over the convexities are mildly prominent. Bone window settings were reviewed which show no acute calvarial abnormality. Mild areas of mucosal thickening are noted within the ethmoid sinuses which are believed to be incidental. Impression: 1. Multiple old appearing infarcts. 2. Other senescent changes as described above. 3. No acute intracranial abnormality is appreciated. Diagnostic code #3
--- NOTE | 2019-01-23 15:16 | CR ---
Right femur: AP and lateral views of the right femur were obtained. Comparison: No prior femur exam. Vascular calcification is seen. Bony structures are slightly osteopenic. No acute fracture or other bony abnormality is appreciated. Impression: 1. Incidental findings as noted above. Nothing acute is appreciated on right femur exam. Diagnostic code #2
--- NOTE | 2019-01-23 15:16 | CR ---
Chest: Portable view of the chest was obtained. Comparison: Prior chest x-ray of 07/14/18. Heart size and mediastinum are within normal limits for age. Lungs are clear. Right shoulder prosthesis is noted. No acute osseous abnormality is seen. Impression: 1. Nothing acute is appreciated on portable chest x-ray. Diagnostic code #2
--- NOTE | 2019-01-23 15:19 | CR ---
Right knee: AP and sunrise patellar views of the right knee were obtained. Lateral view is correlated with femur exam. Vascular calcification is noted. Minimal narrowing is noted within the patellofemoral joint. No fracture or other bony abnormality is seen. Impression: . Incidental findings. Nothing acute is seen on two-view right knee exam. Diagnostic code #2
--- NOTE | 2019-01-23 15:30 | CR ---
Pelvis: AP view of the pelvis was obtained. Patient is somewhat obliqued for this exam. Comparison: No prior pelvis exam. Joint spaces within both hips are maintained. Vascular calcification is seen. Osteopenia is noted. Nothing acute is definitely appreciated. Impression: 1. Incidental findings. Nothing acute is appreciated on AP pelvis study. Diagnostic code #2
[2019-01-23] MEDS ORDERED: Acetaminophen 325 MG Tab PO ONE (15:49)
[2019-01-23 18:04] VITALS: BP 147/77
== END 2019-01-23 18:00 | disposition home or self-care (01) ==
LOC: JD.ED 13:48
DX: S80.01XA Contusion of right knee, initial encounter (principal); M25.551 Pain in right hip; I10 Essential (primary) hypertension; E78.00 Pure hypercholesterolemia, unspecified; J44.9 Chronic obstructive pulmonary disease, unspecified; Z86.73 Personal history of transient ischemic attack (TIA), and cerebral infarction without residual deficits; Z79.899 Other long term (current) drug therapy; Z88.2 Allergy status to sulfonamides; W19.XXXA Unspecified fall, initial encounter
CPT/HCPCS: 36415; 51702; 70450; 71045; 72170; 73552; 73562; 80053; 81001; 82962; 84443; 84484; 85007; 85027; 85610; 85730; 93005; 99284; A9270; 93010; 99283